=== PATIENT | female | born 1935 | race Caucasian/White ===

== ENCOUNTER 2018-09-13 14:05 | Inpatient (IN) | payer MEDICARE, BC ==
[2018-09-13] VITALS (16 sets, daily range): BP systolic 133–195; BP diastolic 54–108; BMI 19.5
[~2018-09-13] VITALS: Ht 154.9 cm; Wt 50.9 kg
--- NOTE | ~2018-09-13 | MORECARE ---
CASE MANAGEMENT DISCHARGE SUMMARY PATIENT: RADHA GIBSON UNIT: [id number] ADM DATE: 09/13/18 AGE: 83 : 36 SEX: F ROOM/BED: D.2104 AUTHOR: SOPHIA,DOC PHYSICIAN: REFERRING PHYSICIAN: HIEU PITTS MD DATE OF SERVICE: 09/26/18 Discharge Plan Patient Name: RADHA GIBSON Facility: [facility]:[place] : 1935 Planned Disposition: Home Health Service Anticipated Discharge Date: 09/25/18 Discharge Date: 09/25/2018 Expected LOS: 12 Initial Reviewer: [email or web address] Initial Review Date: 09/13/2018 Generated: 09/26/18 9:33 am Comments DCP- Discharge Planning Updated by [email or web address]: Smita William on 09/25/18 5:[address] LATE ENTRY 1300 CM MET WITH THE PATIENT AND HER , MARISSA, AT THE BEDSIDE.. SHE GAVE PERMISSION FOR CM TO SPEAK WITH MARISSA PRESENT. CM REVIEWED DISCHARGE IMM. PATIENT UNDERSTOOD. SHE AND HER REVIEWED THE IMM FORM. CM ANSWERED THEIR QUESTIONS. THEY ARE ANXIOUS FOR DISCHARGE. CM DISCUSSED HOME HEALTH PROVIDERS. THE PATIENT AND HER CHOSE [facility], DISCHARGE IMM SIGNED BY THE PATIENT. PATIENT CHOICE FORM SIGNED BY THE PATIENT. CM HAD RESPIRTAORY TO OBTAIN O2 SATS RESTING ON RM AIR 90%, O2 SAT WITH EXERCISE ON RM AIR IS 87%. PATIENT PLACED BACK ON OXYGEN 2/L VIA NASAL CANNULA. SHE RECOVERED TO 94%. CM DISCUSSED OXYGEN THERAPY FOR HOME. PATIENT WAS AWARE SHE WOULD NEED HOME O2. DISCUSSED PROVIDERS. THEY CHOSE [facility] THEY ARE CLOSE TO THE PATIENT'S RESIDENCE. TC TO [facility] [phone]. REC CB. PORTABLE UNIT DELIVERED TO THE PATIENT'S BEDSIDE. STATIONARY UNIT TO BE DELIVERED TO PATIENT'S HOME WHEN THEY ARRIVE. TC TO [facility]. CM SPOKE WITH NOA. WILL FAX REFERRAL FOR SN AND PHYSICAL THERAPY. PATIENT DISCHARGE TO HOME VIA AMBULANCE PER MD ORDER. SHE HAS MULTIPLE STAIRS TO NEGOTIATE. O2 SATS DROP WITH ACTIVITY. S/P 3 PTCA AND STENTS TO 3 VESSELS. S/P CHEST PIGTAIL DRAINAGE TUBE FOR PTX. SHE ALSO HAS OSTEOARTHRITIS. DCP- Discharge Planning Updated by [email or web address]: Smita William on 09/24/18 2:[address] PATIENT IS ON NASAL O2 AT 3/4 LITERS. WAS NOT ON OXYGEN PRIOR TO ADMISSION. CTA OF CHEST- IMPRESSION: 1. No evidence of pulmonary emboli. 2. Moderate bilateral pleural effusions with adjacent atelectasis or infiltrate. 3. Mildly prominent precarinal lymph node, nonspecific. 4. Aortic and coronary artery atherosclerosis. 5. 7 cm left renal cyst, incompletely visualized. IV SOLUMEDROL AND LEVAQUIN ADDED. INCREASE ACTIVITY AND PULMONARY TOILETRY. MONITOR. CM SPOKE WITH PRIMARY NURSE. WILL REGARDING POSSIBLE NEED FOR HOME O2. DCP- Discharge Planning Updated by [email or web address]: Swetha Gamble on 09/13/18 5:[address] CM met with patient and spouse, Marissa, @bedside in ER to discuss dc needs/plans. Patient is alert/oriented, gives permission to speak with spouse in room. PCP: Dr. Pitts. Pharmacy: [facility]. Emergency contact: Marissa Gibson (spouse) cell #[phone] or #[phone]. Patient states she is Independent in her care at home. Denies having HHS or DME. States at this time, she does not feel she will require additional services and reports she feels safe returning to her previous environment. Patient denies being hospitalized within the past 30 days. Patient is on O2 during this stay and may require a RA SAT to determine need for home O2 upon discharge. CM will follow and assist PRN. Swetha Gamble RN, CM DCPIA - Discharge Planning Initial Assessment Updated by [email or web address]: Swetha Gamble on 09/13/18 6:12 pm * Is the patient Alert and Oriented? Yes * How many steps to enter\exit or inside your home? * PCP Dr. Pitts * Pharmacy [facility] * Preadmission Environment Home with Family * ADLs Independent * Equipment None * Other Equipment NA * List name and contact numbers for known caregivers / representatives who currently or will assist patient after discharge: Marissa Gibson (spouse) cell [phone] or [phone] * Verbal permission to speak to the caregivers and representatives has been obtained from the patient. Yes * Community resources currently utilized None * Please name any agencies selected above. NA * Additional services required to return to the preadmission environment? No * Can the patient safely return to the preadmission environment? Yes * Has this patient been hospitalized within the prior 30 days at any hospital? No Coverage Notice Reviewer: [id number] Janna William Notice Issued Date-Time: 09/25/2018 11:38 Notice Type: IM Discharge Notice Notice Delivered To: Patient Relationship to Patient: Offline Editor Name: Delivery Method: HAND - Hand Delivered Nataliia Days: Prior Verbal Notification: Recipient Understood Notice: Yes Recipient Signature: Yes Med Rec Note Co-signed by Attending: Coverage Notice Comment: PATIENT REVIEWED AND STATED SHE UNDERSTOOD. COPY TO THE PATIENT AND COPY TO HARD COVER CHART. Last DP export: 09/25/18 5:44 Patient Name: RADHA GIBSON Page 52757 at 0833 All edits/amendments must be made on the electronic document DICTATION DATE: 09/26/18831 GLASS BULB SILVERER: CHRISTEL 09/26/18831 RPT#: [id number] DC DATE:09/25/18 STATUS: DIS IN [facility] [address] [place] [address] END OF REPORT
--- NOTE | ~2018-09-13 | MORECARE ---
CASE MANAGEMENT DISCHARGE SUMMARY PATIENT: RADHA GIBSON UNIT: [id number] ADM DATE: 09/13/18 AGE: 83 : 36 SEX: F ROOM/BED: D.2106 AUTHOR: SOPHIA,DOC PHYSICIAN: REFERRING PHYSICIAN: HIEU PITTS MD DATE OF SERVICE: 09/25/18 Discharge Plan Patient Name: RADHA GIBSON Facility: [facility]:[place] : 1935 Planned Disposition: Home Health Service Anticipated Discharge Date: 09/25/18 Discharge Date: 09/25/2018 Expected LOS: 12 Initial Reviewer: [email or web address] Initial Review Date: 09/13/2018 Generated: 09/25/18 7:44 pm Comments DCP- Discharge Planning Updated by [email or web address]: Smita William on 09/25/18 5:[address] LATE ENTRY 1300 CM MET WITH THE PATIENT AND HER , MARISSA, AT THE BEDSIDE.. SHE GAVE PERMISSION FOR CM TO SPEAK WITH MARISSA PRESENT. CM REVIEWED DISCHARGE IMM. PATIENT UNDERSTOOD. SHE AND HER REVIEWED THE IMM FORM. CM ANSWERED THEIR QUESTIONS. THEY ARE ANXIOUS FOR DISCHARGE. CM DISCUSSED HOME HEALTH PROVIDERS. THE PATIENT AND HER CHOSE [facility], DISCHARGE IMM SIGNED BY THE PATIENT. PATIENT CHOICE FORM SIGNED BY THE PATIENT. CM HAD RESPIRTAORY TO OBTAIN O2 SATS RESTING ON RM AIR 90%, O2 SAT WITH EXERCISE ON RM AIR IS 87%. PATIENT PLACED BACK ON OXYGEN 2/L VIA NASAL CANNULA. SHE RECOVERED TO 94%. CM DISCUSSED OXYGEN THERAPY FOR HOME. PATIENT WAS AWARE SHE WOULD NEED HOME O2. DISCUSSED PROVIDERS. THEY CHOSE [facility] THEY ARE CLOSE TO THE PATIENT'S RESIDENCE. TC TO [facility] [phone]. REC CB. PORTABLE UNIT DELIVERED TO THE PATIENT'S BEDSIDE. STATIONARY UNIT TO BE DELIVERED TO PATIENT'S HOME WHEN THEY ARRIVE. TC TO [facility]. CM SPOKE WITH NOA. WILL FAX REFERRAL FOR SN AND PHYSICAL THERAPY. PATIENT DISCHARGE TO HOME VIA AMBULANCE PER MD ORDER. SHE HAS MULTIPLE STAIRS TO NEGOTIATE. O2 SATS DROP WITH ACTIVITY. S/P 3 PTCA AND STENTS TO 3 VESSELS. S/P CHEST PIGTAIL DRAINAGE TUBE FOR PTX. SHE ALSO HAS OSTEOARTHRITIS. DCP- Discharge Planning Updated by [email or web address]: Smita William on 09/24/18 2:[address] PATIENT IS ON NASAL O2 AT 3/4 LITERS. WAS NOT ON OXYGEN PRIOR TO ADMISSION. CTA OF CHEST- IMPRESSION: 1. No evidence of pulmonary emboli. 2. Moderate bilateral pleural effusions with adjacent atelectasis or infiltrate. 3. Mildly prominent precarinal lymph node, nonspecific. 4. Aortic and coronary artery atherosclerosis. 5. 7 cm left renal cyst, incompletely visualized. IV SOLUMEDROL AND LEVAQUIN ADDED. INCREASE ACTIVITY AND PULMONARY TOILETRY. MONITOR. CM SPOKE WITH PRIMARY NURSE. WILL REGARDING POSSIBLE NEED FOR HOME O2. DCP- Discharge Planning Updated by [id number]: Swetha Gamble on 09/13/18 5:[address] CM met with patient and spouse, Marissa, @bedside in ER to discuss dc needs/plans. Patient is alert/oriented, gives permission to speak with spouse in room. PCP: Dr. Pitts. Pharmacy: [facility]. Emergency contact: Marissa Gibson (spouse) cell #[phone] or #[phone]. Patient states she is Independent in her care at home. Denies having HHS or DME. States at this time, she does not feel she will require additional services and reports she feels safe returning to her previous environment. Patient denies being hospitalized within the past 30 days. Patient is on O2 during this stay and may require a RA SAT to determine need for home O2 upon discharge. CM will follow and assist PRN. Swetha Gamble RN, CM DCPIA - Discharge Planning Initial Assessment Updated by [email or web address]: Swetha Gamble on 09/13/18 6:12 pm * Is the patient Alert and Oriented? Yes * How many steps to enter\exit or inside your home? * PCP Dr. Pitts * Pharmacy [facility] * Preadmission Environment Home with Family * ADLs Independent * Equipment None * Other Equipment NA * List name and contact numbers for known caregivers / representatives who currently or will assist patient after discharge: Marissa Gibson (spouse) cell [phone] or [phone] * Verbal permission to speak to the caregivers and representatives has been obtained from the patient. Yes * Community resources currently utilized None * Please name any agencies selected above. NA * Additional services required to return to the preadmission environment? No * Can the patient safely return to the preadmission environment? Yes * Has this patient been hospitalized within the prior 30 days at any hospital? No Coverage Notice Reviewer: [email or web address] Janna William Notice Issued Date-Time: 09/25/2018 11:38 Notice Type: IM Discharge Notice Notice Delivered To: Patient Relationship to Patient: Day Care Supervisor Name: Delivery Method: HAND - Hand Delivered Nataliia Days: Prior Verbal Notification: Recipient Understood Notice: Yes Recipient Signature: Yes Med Rec Note Co-signed by Attending: Coverage Notice Comment: PATIENT REVIEWED AND STATED SHE UNDERSTOOD. COPY TO THE PATIENT AND COPY TO HARD COVER CHART. Last DP export: 09/25/18 5:31 Patient Name: RADHA GIBSON Page [phone] at 1844 All edits/amendments must be made on the electronic document DICTATION DATE: 09/25/181842 COMPUTER NUMERICAL CONTROL OPERATOR: CHRISTEL 09/25/181842 RPT#: [id number] DC DATE:09/25/18 STATUS: DIS IN [facility] [address] [place] [address] END OF REPORT
--- NOTE | ~2018-09-13 | MORECARE ---
CASE MANAGEMENT DISCHARGE SUMMARY PATIENT: RADHA GIBSON UNIT: [id number] ADM DATE: 09/13/18 AGE: 83 : 36 SEX: F ROOM/BED: D.2309 AUTHOR: SOPHIA,DOC PHYSICIAN: REFERRING PHYSICIAN: HIEU PITTS MD DATE OF SERVICE: 09/19/18 Discharge Plan Patient Name: RADHA GIBSON Facility: [facility]:[place] : 1935 Planned Disposition: Anticipated Discharge Date: Discharge Date: Expected LOS: Initial Reviewer: [email or web address] Initial Review Date: 09/13/2018 Generated: 09/19/18 6:58 pm DCP- Discharge Planning Updated by [email or web address]: Swetha Gamble on 09/13/18 5:[address] CM met with patient and spouse, Saurabh, @bedside in ER to discuss dc needs/plans. Patient is alert/oriented, gives permission to speak with spouse in room. PCP: Dr. Pitts. Pharmacy: [facility]. Emergency contact: Saurabh Gibson (spouse) cell #[phone] or #[phone]. Patient states she is Independent in her care at home. Denies having HHS or DME. States at this time, she does not feel she will require additional services and reports she feels safe returning to her previous environment. Patient denies being hospitalized within the past 30 days. Patient is on O2 during this stay and may require a RA SAT to determine need for home O2 upon discharge. CM will follow and assist PRN. Swetha Gamble RN, CM DCPIA - Discharge Planning Initial Assessment Updated by [email or web address]: Swetha Gamble on 09/13/18 6:12 pm * Is the patient Alert and Oriented? Yes * How many steps to enter\exit or inside your home? * PCP Dr. Pitts * Pharmacy [facility] * Preadmission Environment Home with Family * ADLs Independent * Equipment None * Other Equipment NA * List name and contact numbers for known caregivers / representatives who currently or will assist patient after discharge: Saurabh Gibson (spouse) cell [phone] or [phone] * Verbal permission to speak to the caregivers and representatives has been obtained from the patient. Yes * Community resources currently utilized None * Please name any agencies selected above. NA * Additional services required to return to the preadmission environment? No * Can the patient safely return to the preadmission environment? Yes * Has this patient been hospitalized within the prior 30 days at any hospital? No Last DP export: 09/13/18 5:17 Patient Name: RADHA GIBSON Page [id number] at 1758 All edits/amendments must be made on the electronic document DICTATION DATE: 09/19/181756 RFID MANAGER: CHRISTEL 09/19/181756 RPT#: [id number] DC DATE: STATUS: ADM IN [facility] [address] [place] [address] END OF REPORT
--- NOTE | ~2018-09-13 | MORECARE ---
CASE MANAGEMENT DISCHARGE SUMMARY PATIENT: RADHA GIBSON UNIT: [id number] ADM DATE: 09/13/18 AGE: 83 : 36 SEX: F ROOM/BED: D.2100 AUTHOR: SOPHIA,DOC PHYSICIAN: REFERRING PHYSICIAN: HIEU PITTS MD DATE OF SERVICE: 09/25/18 Discharge Plan Patient Name: RADHA GIBSON Facility: [facility]:[place] : 1935 Planned Disposition: Home Health Service Anticipated Discharge Date: 09/25/18 Discharge Date: 09/25/2018 Expected LOS: 12 Initial Reviewer: [email or web address] Initial Review Date: 09/13/2018 Generated: 09/25/18 7:31 pm Comments DCP- Discharge Planning Updated by [email or web address]: Smita William on 09/24/18 2:[address] PATIENT IS ON NASAL O2 AT 3/4 LITERS. WAS NOT ON OXYGEN PRIOR TO ADMISSION. CTA OF CHEST- IMPRESSION: 1. No evidence of pulmonary emboli. 2. Moderate bilateral pleural effusions with adjacent atelectasis or infiltrate. 3. Mildly prominent precarinal lymph node, nonspecific. 4. Aortic and coronary artery atherosclerosis. 5. 7 cm left renal cyst, incompletely visualized. IV SOLUMEDROL AND LEVAQUIN ADDED. INCREASE ACTIVITY AND PULMONARY TOILETRY. MONITOR. CM SPOKE WITH PRIMARY NURSE. WILL REGARDING POSSIBLE NEED FOR HOME O2. DCP- Discharge Planning Updated by [email or web address]: Swetha Gamble on 09/13/18 5:[address] CM met with patient and spouse, Saurabh, @bedside in ER to discuss dc needs/plans. Patient is alert/oriented, gives permission to speak with spouse in room. PCP: Dr. Pitts. Pharmacy: [facility]. Emergency contact: Saurabh Gibson (spouse) cell #[phone] or #[phone]. Patient states she is Independent in her care at home. Denies having HHS or DME. States at this time, she does not feel she will require additional services and reports she feels safe returning to her previous environment. Patient denies being hospitalized within the past 30 days. Patient is on O2 during this stay and may require a RA SAT to determine need for home O2 upon discharge. CM will follow and assist PRN. Swetha Gamble RN, CM DCPIA - Discharge Planning Initial Assessment Updated by [email or web address]: Swetha Gamble on 09/13/18 6:12 pm * Is the patient Alert and Oriented? Yes * How many steps to enter\exit or inside your home? * PCP Dr. Pitts * Pharmacy [facility] * Preadmission Environment Home with Family * ADLs Independent * Equipment None * Other Equipment NA * List name and contact numbers for known caregivers / representatives who currently or will assist patient after discharge: Saurabh Gibson (spouse) cell [phone] or [phone] * Verbal permission to speak to the caregivers and representatives has been obtained from the patient. Yes * Community resources currently utilized None * Please name any agencies selected above. NA * Additional services required to return to the preadmission environment? No * Can the patient safely return to the preadmission environment? Yes * Has this patient been hospitalized within the prior 30 days at any hospital? No Last DP export: 09/25/18 5:19 Patient Name: RADHA GIBSON Page 19613 at 1831 All edits/amendments must be made on the electronic document DICTATION DATE: 09/25/181830 SAP SECURITY CONSULTANT: CHRISTEL 09/25/181830 RPT#: [id number] DC DATE:09/25/18 STATUS: DIS IN [facility] [address] [place] [address] END OF REPORT
--- NOTE | ~2018-09-13 | HEMODYNAMI ---
PATIENT:RADHA ERICKSON MEDICAL RECORD: [id number] : 37 LOCATION:[facility] D.2309 ADMISSION DATE: 09/13/18 Generatedon:09/15/201812:49 Patient name: RADHA ERICKSON Patient #: [id number] SSN: : 1935 Date of study: 09/15/2018 Page: Of Hemodynamic Procedure Report Patient Data Patient Demographics Procedure consent was obtained First Name: RADHA Gender: Female Last Name: DRE : 1935 [facility] Initial: KATARINA Age: 83 year(s) Patient #: [id number] Race: Additional ID: [id number] Contact details Address: [address] [place] [address] State: [place] City: [place] Zip code: [address] Past Medical History Allergies: No known allergies Admission Admission Data Admission Date: 09/13/2018 Admission Time: 17:03 Room #: D.2309 Procedure Procedure Types Cath Procedure Diagnostic Procedure Sedation Charges Moderate Sedation up to 15 minutes PCI Procedure Coronary Stent Coronary Stent Initial Peripheral Cath Diagnostic Procedure Derrick Boat Operator Peripheral Procedures Hjqdb-Vlbsnvo-Jwu-Off Procedure Description Procedure Date Procedure Date: 09/15/2018 Procedure Start Time: 12:24 Procedure End Time: 12:45 Procedure Staff Name Function King Parker MD Performing Physician Indy Lockett RT Monitor Yeni Lopez RT Scrub Estrellita Raygoza RN Nurse Procedure Data Cath Procedure Fluoroscopy Diagnostic fluoroscopy Total fluoroscopy Time: 6.4 time: 6.4 min min Diagnostic fluoroscopy Total fluoroscopy dose: 421 dose: 421 mGy mGy Contrast Material Contrast Material Type Amount (ml) Isovue 300 135 Entry Location Entry Primary Successful Side Size Upsize Upsize Entry Closure Succes sful Closure Location (Fr) 1 (Fr) 2 (Fr) Remarks Device Remarks Femoral Right 6 Fr Exoseal artery Short Estimated blood loss: 5 ml Diagnostic catheters Device Type Used For End Catheter Placement DIAGNOSTIC UF 5Fr Multi-vessel catheter ([id number]) Angiography Procedure Complications No complications Procedure Medications Medication Administration Route Dosage Oxygen etCO2 Nasal cannula 2 l/min Lidocaine 2% added to field 20 Heparin Flush Bag added to field 2 bags (1000units/500ml NS) 0.9% NaCl I.V. 100 ml/hr Versed I.V. 1 mg Fentanyl I.V. 50 mcg Heparin Bolus I.V. 4000 units Hemodynamics Rest Heart Rate: 72 (bpm) Snapshots Pre Cath Intra NCS Post Cath Vital Signs Time Heart Resp SPO2 etCO2 NIBP (mmHg) Rhythm Pain Sedation Rate (ipm) (%) (mmHg) Status Level (bpm) 12:18:42 76 22 89 22.6 203/76(140) NSR 0 (11) 10(A) , No pain 12:23:12 73 18 92 10.5 182/74(120) NSR 0 (11) 10(A) , No pain 12:27:43 69 15 98 13.5 186/67(123) NSR 0 (11) 9(A) , No pain 12:32:15 71 17 98 15.1 174/61(120) NSR 0 (11) 9(A) , No pain 12:36:39 71 15 99 0 193/71(141) NSR 0 (11) 9(A) , No pain 12:41:10 76 16 98 9.8 194/76(126) NSR 0 (11) 9(A) , No pain 12:45:40 70 15 98 24.8 187/72(136) NSR 0 (11) 10(A) , No pain Medications Time Medication Route Dose Verified Delivered Reason Notes Effectiveness by by 12:19:29 Oxygen etCO2 2 King Haro used for Nasal l/min Elena Raygoza RN procedure cannula 12:19:35 Lidocaine 2% added 20ml King Malik for local to vial Elena Parker MD anesthetic field 12:19:40 Heparin Flush added 2 King King used for Bag to bags Elena Parker MD procedure (1000units/500ml field NS) 12:19:49 0.9% NaCl I.V. 100 King Buffie Per physician ml/hr Elena Raygoza RN 12:20:03 Versed I.V. 1 mg King Haro for sedation Elena Raygoza RN 12:20:10 Fentanyl I.V. 50 King Buffie for sedation mcg Tauth MD Raygoza RN 12:28:58 Heparin Bolus I.V. Dacia Haro for verif ied units Elena Raygoza RN anticoagulation with dr parker Procedure Log Time Note 11:56:23 Informed consent obtained and on chart 11:57:54 Yeni Lopez RT(R) sent for patient. Start room use. 11:57:54 Time tracking: Regular hours (M-F 7:00 - 5:00) 11:57:59 Plan of Care:Hemodynamics will remain stable., Cardiac rhythm will remain stable., Comfort level will be maintained., Respiratory function will remain adequate., Patient/ family verbilizes understanding of procedure., Procedure tolerated without complication., Recovers from procedure without complications.. 12:16:11 Patient received from ICU to CCL 2 Alert and oriented. Tansferred to table in Supine position. 12:16:12 Warm blankets applied, and william hugger turned on for patient comfort. 12:16:13 Correct patient and procedure confirmed by team. 12:16:13 ECG and BP/O2 sat monitors applied to patient. 12:16:14 Vital chart was started 12:16:16 Baseline sample Acquired. 12:16:18 Rhythm: sinus rhythm 12:16:20 Full Disclosure recording started 12:16:23 H&P Date Dictated: 09/15/2018 Within 30 days and on chart., H&P Addendum completed by physician on day of procedure. (MUST COMPLETE FOR ALL OUTPATIENTS). 12:16:24 Pre-procedure instructions explained to patient. 12:16:25 Pre-op teaching completed and patient verbalized understanding. 12:16:26 Family in waiting room. 12:16:28 Patient NPO since Midnight. 12:16:30 Is the patient allergic to Iodine/contrast media? No. 12:16:31 Was the patient premedicated? No 12:17:29 Is patient on blood thinner?Yes 12:17:31 ACC The patient was administered the following blood thiners within the last 24 hours: ACCPlavix 12:17:40 Patient diabetic? No. 12:17:42 Previous problem with sedation/anesthesia? No ? 12:17:46 Snore? Yes 12:17:47 Sleep apnea? No 12:18:07 Deviated septum? No 12:18:07 Opens mouth fully? Yes 12:18:08 Sticks out tongue? Yes 12:18:13 Airway obstruction? No ? 12:18:20 Dentures? Yes in tight 12:18:24 Pre procedure: right dorsailis pedis pulse 1+ Palpable, but thready & weak; easily obliterated 12:18:32 Pre procedure: left dorsailis pedis pulse 1+ Palpable, but thready & weak; easily obliterated 12:18:36 Patient pain scale 0/10 ?. 12:18:42 IV patent on arrival in right forearm with 0.9% NaCl at [facility]. 12:18:45 Lab results completed and on chart. 12:18:49 Right groin area was prepped with chlora-prep and draped in sterile fashion 12:18:49 Alarms reviewed by R. N. 12:18:50 Sharps counted by scrub and verified by R.N. 12:18:51 Physician arrived 12:18:51 --------ALL STOP TIME OUT------ 12:18:52 Final Timeout: patient, procedure, and site verified with staff and physician. All members of the team are in agreement. 12:18:53 Right groin site verified by team. 12:18:55 Physical assessment completed. ASA score P 2 - A patient with mild systemic disease as per King Parker MD. 12:18:59 Sedation plan: IV Moderate Sedation Medication:Versed, Fentanyl 12:19:12 Use device set Femoral Dx 12:19:14 ACIST Syringe (56047) opened to sterile field. 12:19:14 Bag Decanter (2001S) opened to sterile field. 12:19:15 Medline Cath Pack ([id number]) opened to sterile field. 12:19:15 DIAGNOSTIC WIRE .035 260cm J wire (735445) opened to sterile field. 12:19:16 ACIST Hand Control (17798) opened to sterile field. 12:19:17 ACIST Manifold (04875) opened to sterile field. 12:19:19 Tegaderm 4 x 4 (1626W) opened to sterile field. 12:19:29 Oxygen 2 l/min etCO2 Nasal cannula was administered by Estrellita Raygoza RN; used for procedure; 12:19:35 Lidocaine 2% 20ml vial added to field was administered by King Parker MD; for local anesthetic; 12:19:40 Heparin Flush Bag (1000units/500ml NS) 2 bags added to field was administered by King Parker MD; used for procedure; 12::49 0.9% NaCl 100 ml/hr I.V. was administered by Estrellita Raygoza RN; Per physician; 12:20:03 Versed 1 mg I.V. was administered by Estrellita Raygoza RN; for sedation; 12:20:10 Fentanyl 50 mcg I.V. was administered by Estrellita Raygoza RN; for sedation; 12::27 SHEATH 6FR Lydia (RDA498) opened to sterile field. 12::28 INFLATOR Merit BasixCompak (JU4139) opened to sterile field. 12::29 CHOICE PT Extra Support 182cm wire ([id number]) opened to sterile field. 12:24:36 Procedure started. 12:24:44 Local anesthetic to right femoral artery with Lidocaine 2% by King Parker MD.INITIAL ACCESS ONLY 12:24:52 A 6 Fr Short sheath was inserted into the Right Femoral artery 12:25:48 GLIDE WIRE Super Stiff Angled 260cm (XW1134) opened to sterile field. 12:25:55 GUIDE 6FR HS I SH catheter ([id number]) opened to sterile field. 12:26:08 glide wire advanced. 12:26:14 A DIAGNOSTIC UF 5Fr catheter ([id number]) was advanced over the wire and used for Multi-vessel Angiography. 12:27:14 Abdominal angiogram w/ runoff was performed. 12::19 Injector settings: Ml/sec: 10, Volume: 20, 12:28:24 Wire removed. 12:28:33 Catheter removed. 12:28:34 Proceeding to intervention. 12:28:43 6 Fr hs 1 sh guide catheter was inserted over the wire 12:28:52 choice pt wire advanced. 12:28:58 Heparin Bolus 4000 units I.V. was administered by Estrellita Raygoza RN; for anticoagulation; verified with dr parker 12:31:51 Wire advanced across lesion. 12:33:10 The TANIYA RX 2.5 x 18 stent ([id number]) was advanced then removed because of failure to cross lesion 12:34:44 Inflate balloon Inflation number: 1 A EUPHORA 2.5 x 15 Balloon ([id number]) was prepped and advanced across the Mid RCA, then inflated to 11 IKE for 0:10 (min:sec). 12:34:55 Balloon removed over the wire. 12:36:24 The TANIYA RX 2.5 x 18 stent ([id number]) was advanced then removed because of failure to cross lesion 12:37:15 Inflation number: 2 The EUPHORA 2.5 x 15 Balloon ([id number]) was reinflated across the Mid RCA, to 13 IKE for 0:10 (min:sec). 12:37:22 Inflation number: 3 The EUPHORA 2.5 x 15 Balloon ([id number]) was reinflated across the Mid RCA, to 13 IKE for 0:10 (min:sec). 12:37:36 Balloon removed over the wire. 12:38:32 Inflation number: 4 The EUPHORA 2.5 x 15 Balloon ([id number]) was reinflated across the Mid RCA, to 11 IKE for 0:10 (min:sec). 12:38:45 Stent catheter was removed intact over wire. 12:40:09 Place stent Inflation Number: 1 A TANIYA RX 2.5 x 22 stent ([id number]) was prepped and advanced across the Prox RCA. The stent was deployed at 11 IKE for 0:10 (min:sec). 12:41:20 Stent catheter was removed intact over wire. 12:41:22 Wire removed. 12:41:22 Guide catheter removed. 12:41:30 Sheath removed intact; hemostasis achieved with Exoseal to the Right Femoral artery. 12:41:39 EXOSEAL 6Fr (EX600) opened to sterile field. 12:43:10 Procedure ended.(Physican Out) 12:43:41 Fluoroscopy time 06.40 minutes. 12:43:44 Flurop Dose total: 421 12:43:44 Fluoroscopy dose: 421 mGy 12:43:48 Contrast amount:Isovue 300 135ml. 12:43:49 Sharps counted by scrub and verified by R.N. 12:43:52 Insertion/operative site no bleeding no hematoma. 12:43:54 Post-op/insertion site Right Femoral artery dressed using a 4 x 4 and Tegaderm. 12:43:57 Post right femoral artery:stable 12:43:58 Post Procedure Pulses reassessed and unchanged 12:44:01 Post procedure rhythm: unchanged. 12:44:03 Estimated blood loss: 5 ml 12:44:05 Post procedure instruction explained to patient.Patient verbalizes understanding. 12:44:05 Patient needs reinforcement of post procedure teaching. 12:44:57 Procedure type changed to Cath procedure, Diagnostic procedure, Sedation Charges, Moderate Sedation up to 15 minutes, PCI procedure, Coronary Stent, Coronary Stent Initial, Peripheral Cath Diagnostic Procedure, Derrick Boat Operator Peripheral Procedures, Rnrxs-Ifadtlc-Lpy-Off 12:44:57 Procedure and supply charges have been captured, reviewed, submitted and are correct. 12:45:02 Procedure Complication : No complications 12:45:04 Vital chart was stopped 12:45:05 See physician's report for complete and final results. 12:45:27 Report given to ICU. 12:45:30 Patient transfered to ICU with Stretcher. 12:45:35 Procedure ended. 12:45:35 Full Disclosure recording stopped 12:45:40 ACC-PCI Only Patient was given prescriptions, or instructed by King Parker MD to start/continue the following medications upon discharge: Plavix 12:45:42 End room use (Document Last) Intervention Summary Intervention Notes Time ActionType Lesion and Equipment Used Action# Pressure Duration Attributes 12:33:10 Discard TANIYA RX 2.5 x Stent 18 stent ([id number]) 12:34:44 Inflate Mid RCA EUPHORA 2.5 x 1 11 00:10 balloon 15 Balloon ([id number]) 12:36:24 Discard TANIYA RX 2.5 x Stent 18 stent ([id number]) 12:37:15 Reinflate Mid RCA EUPHORA 2.5 x 2 13 00:10 balloon 15 Balloon ([id number]) 12:37:22 Reinflate Mid RCA EUPHORA 2.5 x 3 13 00:10 balloon 15 Balloon ([id number]) 12:38:32 Reinflate Mid RCA EUPHORA 2.5 x 4 11 00:10 balloon 15 Balloon ([id number]) 12:40:09 [address] stent Prox RCA TANIYA RX 2.5 x 1 11 00:10 22 stent ([id number]) Device Usage Item Name Manufacture Quantity Catalog Number Hospital Part Current M inimal Lot# / Charge Number Stock Stock Serial# Code ACIST Syringe Acist 1 08997 659658 831940 074251 2 0 (52793) Medical Systems Inc Bag Decanter Microtek 1 402414 48239 441091 5 () Medical Inc. Medline Cath Medline 1 [id number] 120010 40064 612359 5 Pack ([id number]) DIAGNOSTIC St Tom 1 259725 030507 192340 062278 3 0 WIRE .035 260cm J wire (397928) ACIST Hand Acist 1 09885 010152 851646 375248 5 Control Medical (94374) Systems Inc ACIST Manifold Acist 1 30066 716028 447094 085491 5 (41660) Medical Systems Inc Tegaderm 4 x 4 3M 1 1626W 882298 193167 196706 5 (1626W) SHEATH 6FR Terumo 1 LSB924 214945 641819 446365 4 0 Lydia (WLJ434) INFLATOR Merit Merit 1 JK4913 353680 326622 037547 1 5 Extreme Enterprises (ZY8081) CHOICE PT Dilley 1 [id number] 169559 984587 883448 5 Extra Support Scientific 182cm wire ([id number]) DIAGNOSTIC UF Cardinal 1 [id number] 383100 241714 893643 1 0 5Fr catheter [facility] (191460H2) GLIDE WIRE Terumo 1 MW7619 052818 050912 650026 5 Super Stiff Angled 260cm (FF9304) GUIDE 6FR HS I Medtronic 1 [id number] 925464 43559 831671 1 SH catheter ([id number]) TANIYA RX 2.5 x Medtronic 1 [id number] 215532 5191308 869939 5 [id number] 18 stent ([id number]) EUPHORA 2.5 x Medtronic 1 [id number] 200748 388122 658859 5 [id number] 15 Balloon ([id number]) TANIYA RX 2.5 x Medtronic 1 [id number] 537397 2696577 724402 5 [id number] 22 stent ([id number]) EXOSEAL 6Fr Cardinal 1 EX600 877916 001185 889120 1 0 (EX600) Health Signature Audit [place] Stage Time Signature Unsigned Intra-Procedure 09/15/2018 Indy Lockett 12:49:22 PM RT(R) Signatures Monitor : Indy Lockett RT Signature : Date : Time : [address] [address] [place] [address]
--- NOTE | ~2018-09-13 | MORECARE ---
CASE MANAGEMENT DISCHARGE SUMMARY PATIENT: RADHA GIBSON UNIT: [id number] ADM DATE: 09/13/18 AGE: 83 : 36 SEX: F ROOM/BED: D.210 AUTHOR: SOPHIA,DOC PHYSICIAN: REFERRING PHYSICIAN: HIEU PITTS MD DATE OF SERVICE: 09/25/18 Discharge Plan Patient Name: RADHA GIBSON Facility: [facility]:[place] : 1935 Planned Disposition: Home Health Service Anticipated Discharge Date: 09/25/18 Discharge Date: 09/25/2018 Expected LOS: 12 Initial Reviewer: [email or web address] Initial Review Date: 09/13/2018 Generated: 09/25/18 7:19 pm Comments DCP- Discharge Planning Updated by [email or web address]: Smita William on 09/24/18 2:[address] PATIENT IS ON NASAL O2 AT 3/4 LITERS. WAS NOT ON OXYGEN PRIOR TO ADMISSION. CTA OF CHEST- IMPRESSION: 1. No evidence of pulmonary emboli. 2. Moderate bilateral pleural effusions with adjacent atelectasis or infiltrate. 3. Mildly prominent precarinal lymph node, nonspecific. 4. Aortic and coronary artery atherosclerosis. 5. 7 cm left renal cyst, incompletely visualized. IV SOLUMEDROL AND LEVAQUIN ADDED. INCREASE ACTIVITY AND PULMONARY TOILETRY. MONITOR. CM SPOKE WITH PRIMARY NURSE. WILL REGARDING POSSIBLE NEED FOR HOME O2. DCP- Discharge Planning Updated by [email or web address]: Swetha Gamble on 09/13/18 5:[address] CM met with patient and spouse, Saurabh, @bedside in ER to discuss dc needs/plans. Patient is alert/oriented, gives permission to speak with spouse in room. PCP: Dr. Pitts. Pharmacy: [facility]. Emergency contact: Saurabh Gibson (spouse) cell #[phone] or #[phone]. Patient states she is Independent in her care at home. Denies having HHS or DME. States at this time, she does not feel she will require additional services and reports she feels safe returning to her previous environment. Patient denies being hospitalized within the past 30 days. Patient is on O2 during this stay and may require a RA SAT to determine need for home O2 upon discharge. CM will follow and assist PRN. Swetha Gamble RN, CM DCPIA - Discharge Planning Initial Assessment Updated by [email or web address]: Swetha Gamble on 09/13/18 6:12 pm * Is the patient Alert and Oriented? Yes * How many steps to enter\exit or inside your home? * PCP Dr. Pitts * Pharmacy [facility] * Preadmission Environment Home with Family * ADLs Independent * Equipment None * Other Equipment NA * List name and contact numbers for known caregivers / representatives who currently or will assist patient after discharge: Saurabh Gibson (spouse) cell [phone] or [phone] * Verbal permission to speak to the caregivers and representatives has been obtained from the patient. Yes * Community resources currently utilized None * Please name any agencies selected above. NA * Additional services required to return to the preadmission environment? No * Can the patient safely return to the preadmission environment? Yes * Has this patient been hospitalized within the prior 30 days at any hospital? No Last DP export: 09/24/18 2:59 Patient Name: RADHA GIBSON Page [id number] at 1819 All edits/amendments must be made on the electronic document DICTATION DATE: 09/25/181817 FAMILY PRACTICE PHYSICIAN ASSISTANT: CHRISTEL 09/25/181817 RPT#: [id number] [place] DATE:09/25/18 STATUS: DIS IN [facility] [address] [place] [address] END OF REPORT
--- NOTE | ~2018-09-13 | OP ---
PATIENT NAME: RADHA ERICKSON MEDICAL RECORD: [id number] :[birth year] LOCATION:[facility] D.2309 ADMISSION DATE:09/13/18 SURGEON: SHANNAN AGARWAL MD DATE OF OPERATION: 09/15/2018 DATE OF SERVICE: 09/15/2018 PROCEDURES: 1. PTCA stent RCA. 2. Selective coronary angiography. INDICATION: Angina and coronary artery disease. PROCEDURE IN DETAIL: After informed consent was obtained and after a detailed description of the risks, benefits as well as alternative therapies, the patient elected to proceed with angiogram and angioplasty. The right femoral area was prepped and draped in normal sterile fashion. Right femoral artery was cannulated via modified Seldinger technique with placement of 6-Salvadorean sheath. All catheters exchanged through this sheath. FINDINGS: The right coronary has a long area of 70% to 80% stenosis in the mid vessel. This was addressed with a 2.5 x 18 and 2.5 x 22, both Junior stents. Result was 0% residual stenosis. OVERALL IMPRESSION: Successful percutaneous transluminal coronary angioplasty stent of the right coronary artery going from 80% initial stenosis to 0% residual. TRANSINT:[id number] Voice Confirmation ID: [id number] DOCUMENT ID: [id number] SHANNAN AGARWAL MD at 1856 CC: [id number] DICTATION DATE: 09/15/18 1248 METALIZING SUPERVISOR: 09/15/18 1301 ADM IN [facility] [address] [place] [address]
--- NOTE | ~2018-09-13 | OP ---
PATIENT NAME: RADHA ERICKSON MEDICAL RECORD: [id number] :[birth year] LOCATION:D.[facility] D.2309 ADMISSION DATE:09/13/18 SURGEON: SHANNAN AGARWAL MD DATE OF OPERATION: 09/14/2018 PROCEDURES: 1. PTCA and stent, LAD. 2. PTCA and stent, left circumflex. 3. Intravascular ultrasound of LAD. 4. Intravascular ultrasound of left circumflex. 5. Left heart catheterization. 6. Selective coronary angiography. 7. Left ventriculogram. INDICATION: Angina and coronary disease. PROCEDURE IN DETAIL: After informed consent was obtained with detailed description of risks and benefits as well as alternative therapies, the patient elected to proceed with angiogram and angioplasty. The right femoral area was prepped and draped in normal sterile fashion. Right femoral artery was cannulated via modified Seldinger technique with placement of 6-Maori sheath. All catheters were exchanged through the sheath. FINDINGS: The left ventriculogram performed in standard 30-degree NICHOLS view reveals good cardiac wall motion throughout all segments. Overall ejection fraction estimated at 60%. SELECTIVE CORONARY ANGIOGRAPHY: 1. Left main is with no significant angiographic disease. 2. Left anterior descending has greater than 80% stenosis, confirmed by intravascular ultrasound in the proximal vessel. 3. Left circumflex has greater than 80% stenosis in the mid vessel, confirmed by intravascular ultrasound. 4. Right coronary has greater than 80% stenosis in the mid vessel. PTCA AND STENT OF LAD AND CIRCUMFLEX: The LAD was addressed with a 2.5 x 22-mm [place], the circumflex with a 2.5 x 8-mm Junior. Result was 0% residual stenoses. OVERALL IMPRESSION: Successful PTCA and stent of the LAD and circumflex, both going from 80% initial stenosis to 0% residual. PLAN: PTCA and stent of the RCA in the near future. TRANSINT:[id number] Voice Confirmation ID: [id number] DOCUMENT ID: [id number] SHANNAN AGARWAL MD at 1856 CC: [id number] DICTATION DATE: 09/14/18 1259 LOCAL TELEPHONE OPERATOR: 09/14/18 1316 ADM IN [place] [address] [place] [address]
--- NOTE | ~2018-09-13 | MORECARE ---
CASE MANAGEMENT DISCHARGE SUMMARY PATIENT: RADHA GIBSON KATARINA UNIT: [id number] ADM DATE: 09/13/18 AGE: 83 : 36 SEX: F ROOM/BED: D.2309 AUTHOR: VANESSA CORTES PHYSICIAN: REFERRING PHYSICIAN: HEIU PITTS MD DATE OF SERVICE: 09/13/18 Discharge Plan Patient Name: RADHA GIBSON [facility] [facility] 1935 Planned Disposition: Anticipated Discharge Date: Discharge Date: Expected LOS: Initial Reviewer: [email or web address] Initial Review Date: 09/13/2018 Generated: 09/13/18 7:10 pm DCP- Discharge Planning Updated by [email or web address]: Swetha Gamble on 09/13/18 5:[address] CM met with patient and spouse, Saurabh, @bedside in ER to discuss dc needs/plans. Patient is alert/oriented, gives permission to speak with spouse in room. PCP: Dr. Pitts. Pharmacy: [facility]. Emergency contact: Saurabh Gibson (spouse) cell #[phone] or #[phone]. Patient states she is Independent in her care at home. Denies having HHS or DME. States at this time, she does not feel she will require additional services and reports she feels safe returning to her previous environment. Patient denies being hospitalized within the past 30 days. Patient is on O2 during this stay and may require a RA SAT to determine need for home O2 upon discharge. CM will follow and assist PRN. Swetha Gamble RN, CM Patient Name: RADHA GIBSON Page [phone] at 1810 All edits/amendments must be made on the electronic document DICTATION DATE: 09/13/181809 TV TECHNICIAN: CHRISTEL 09/13/181809 RPT#: [id number] DC DATE: STATUS: ADM IN [facility] [address] [place] [address] END OF REPORT
--- NOTE | ~2018-09-13 | HEMODYNAMI ---
PATIENT:RADHA ERICKSON MEDICAL RECORD: [id number] : 37 LOCATION:[facility] D.2309 ADMISSION DATE: 09/13/18 Generatedon:09/14/201812:59 Patient name: RADHA ERICKSON Patient #: [id number] SSN: : 1935 Date of study: 09/14/2018 Page: Of Hemodynamic Procedure Report Patient Data Patient Demographics First Name: RADHA Gender: Female Last Name: DRE : 1935 Middle Initial: KATARINA Age: 83 year(s) Patient #: [id number] Race: Unknown Additional ID: [id number] Contact details Address: [address] [place] [address] State: [place] City: [place] Zip code: [address] Past Medical History Allergies: No known allergies Admission Admission Data Admission Date: 09/13/2018 Admission Time: 17:03 Room #: D2309 Procedure Procedure Types Cath Procedure Diagnostic Procedure LHC LHC w/Coronaries FFR/IVUS Intra-Coronary IVUS Initial Intra-Coronary IVUS Additional Sedation Charges Moderate Sedation up to 15 minutes PCI Procedure Coronary Stent Coronary Stent Initial x2 Peripheral Cath Diagnostic Procedure Artificial Glass Eye Maker Peripheral Procedures Zunqs-Bqnpliw-Dnb-Off Procedure Description Procedure Date Procedure Date: 09/14/2018 Procedure Start Time: 12:37 Procedure End Time: 12:59 Procedure Staff Name Function King Parker MD Performing Physician Thalia Gallardo RT Monitor Estrellita Raygoza RN Nurse Vern Garcia RT Scrub Lorena Catalan RN Field Installer Procedure Data Cath Procedure Fluoroscopy Diagnostic fluoroscopy Total fluoroscopy Time: 5 time: 5 min min Diagnostic fluoroscopy Total fluoroscopy dose: 167 dose: 167 mGy mGy Contrast Material Contrast Material Type Amount (ml) Isovue 300 130 Entry Location Entry Primary Successful Side Size Upsize Upsize Entry Closure Succes sful Closure Location (Fr) 1 (Fr) 2 (Fr) Remarks Device Remarks Femoral Right 5 Fr 6 Fr Exoseal artery Short Estimated blood loss: 10 ml Diagnostic catheters Device Type Used For End Catheter Placement MULTIPACK 3DRC 5Fr Right Coronary catheter Angiography MULTIPACK JL 4.0 5Fr Left Coronary catheter Angiography MULTIPACK Pigtail 5 Fr LV Angiography catheter Procedure Complications No complications Procedure Medications Medication Administration Route Dosage 0.9% NaCl I.V. 100 ml/hr Oxygen etCO2 Nasal cannula 2 l/min Lidocaine 2% added to field 20 Heparin Flush Bag added to field 2 bags (1000units/500ml NS) Versed I.V. 0.5 mg Fentanyl I.V. 25 mcg Heparin Bolus I.V. 4000 units Integrilin (Bolus I.V. 4.5 ml 2mg/ml) Plavix P.O. 600 mg Hemodynamics Rest Heart Rate: 65 (bpm) Snapshots Pre Cath Intra NCS Post Cath Vital Signs Time Heart Resp SPO2 etCO2 NIBP (mmHg) Rhythm Pain Sedation Rate (ipm) (%) (mmHg) Status Level (bpm) 12:31:09 63 17 98 28 189/68(116) NSR 0 (11) 10(A) , No pain 12:35:43 68 22 99 30 176/68(101) NSR 0 (11) 10(A) , No pain 12:40:14 64 15 98 32.3 165/57(107) NSR 0 (11) 10(A) , No pain 12:44:34 68 15 99 29.8 148/64(109) NSR 0 (11) 10(A) , No pain 12:48:56 71 15 99 31.1 167/65(114) NSR 0 (11) 10(A) , No pain 12:53:24 72 15 98 30 165/62(107) NSR 0 (11) 10(A) , No pain 12:57:53 71 14 98 0 183/70(137) NSR 0 (11) 10(A) , No pain Medications Time Medication Route Dose Verified Delivered Reason Notes Effectiveness by by 12:30:02 0.9% NaCl I.V. 100 King Lorena used for ml/hr Elena Catalan database administration manager 12:30:11 Oxygen etCO2 2 King Lorena used for Nasal l/min Elena Catalan procedure cannula RN 12:30:18 Lidocaine 2% added 20ml King Malik for local to vial Elena Parker MD anesthetic field 12:30:24 Heparin Flush added 2 King King used for Bag to bags Elena Parker MD procedure (1000units/500ml field NS) 12:35:24 Versed I.V. 0.5 King Carrillo for sedation mg Elena Catalan RN 12:35:32 Fentanyl I.V. 25 King Carrillo for sedation mcg Eelna Catalan RN 12:43:17 Heparin Bolus I.V. 4000 King Carrillo for verif ied units Elena Catalan anticoagulation with DrJenny Parker 12:44:35 Integrilin I.V. 4.5 King Carrillo for waste d (Bolus 2mg/ml) ml Elena Catalan anticoagulation 5.5mL RN 12:49:55 Plavix P.O. 600 King Carrillo for mg Elena Catalan antiplatelet RN therapy Procedure Log Time Note 11:58:35 Time tracking: Regular hours (M-F 7:00 - 5:00) 11:58:38 Plan of Care:Hemodynamics will remain stable., Cardiac rhythm will remain stable., Comfort level will be maintained., Respiratory function will remain adequate., Patient/ family verbilizes understanding of procedure., Procedure tolerated without complication., Recovers from procedure without complications.. 12:10:15 Thalia Counts RT(R) sent for patient. Start room use. 12:18:35 Patient received from ICU to CCL 3 Alert and oriented. Tansferred to table in Supine position. 12:18:38 Warm blankets applied, and william hugger turned on for patient comfort. 12:18:38 Correct patient and procedure confirmed by team. 12:18:39 ECG and BP/O2 sat monitors applied to patient. 12:29:44 Vital chart was started 12:29:46 Full Disclosure recording started 12:29:54 Rhythm: sinus rhythm 12:30:02 0.9% NaCl 100 ml/hr I.V. was administered by Lorena Catalan RN; used for procedure; 12:30:11 Oxygen 2 l/min etCO2 Nasal cannula was administered by Lorena Catalan RN; used for procedure; 12:30:16 H&P Date Dictated: 09/13/2018 Within 30 days and on chart.. 12:30:18 Lidocaine 2% 20ml vial added to field was administered by King Parker MD; for local anesthetic; 12:30:24 Heparin Flush Bag (1000units/500ml NS) 2 bags added to field was administered by King Parker MD; used for procedure; 12:30:27 Pre-procedure instructions explained to patient. 12:30:28 Pre-op teaching completed and patient verbalized understanding. 12:30:32 Family in waiting room. 12:30:51 FAMILY IN ICU WAITING ROOM 12:30:54 Patient NPO since Midnight. 12:31:01 Patient allergic to No known allergies 12:31:07 Is the patient allergic to Iodine/contrast media? No. 12:31:16 Is patient on blood thinner?No 12:31:19 Patient diabetic? No. 12:31:22 Previous problem with sedation/anesthesia? No ? 12:31:23 Snore? No 12:31:24 Sleep apnea? No 12:31:25 Deviated septum? No 12:31:25 Opens mouth fully? Yes 12:31:26 Sticks out tongue? Yes 12:31:28 Airway obstruction? No ? 12:31:31 Dentures? Yes in 12:31:34 Pre procedure: right dorsailis pedis pulse 2+ Normal; easily identifiable; not easily obliterated 12:31:41 Patient pain scale 0/10 ?. 12:31:50 IV patent on arrival in right forearm with 0.9% NaCl at [facility]. 12:31:52 Lab results completed and on chart. 12:31:57 Right groin area was prepped with chlora-prep and draped in sterile fashion 12:31:58 Alarms reviewed by R. N. 12:31:58 Sharps counted by scrub and verified by R.N. 12:32:27 Baseline sample Acquired. 12:32:37 Use device set Femoral Dx 12:32:38 ACIST Syringe (60452) opened to sterile field. 12:32:39 Bag Decanter (2002) opened to sterile field. 12:32:39 Medline Cath Pack ([id number]) opened to sterile field. 12:32:40 DIAGNOSTIC WIRE .035 260cm J wire (927429) opened to sterile field. 12:32:41 ACIST Hand Control (15945) opened to sterile field. 12:32:41 ACIST Manifold (89750) opened to sterile field. 12:32:42 DIAGNOSTIC Multipack 5Fr catheter set (VT7562) opened to sterile field. 12:32:42 Tegaderm 4 x 4 (1626W) opened to sterile field. 12:32:43 SHEATH 5FR [place] (NAG114) opened to sterile field. 12:34:30 Final Timeout: patient, procedure, and site verified with staff and physician. All members of the team are in agreement. 12:34:31 Right groin site verified by team. 12:34:33 Physical assessment completed. ASA score P 2 - A patient with mild systemic disease as per King Parker MD. 12:34:35 Sedation plan: IV Moderate Sedation Medication:Versed, Fentanyl 12:35:24 Versed 0.5 mg I.V. was administered by Lorena Catalan RN; for sedation; 12:35:32 Fentanyl 25 mcg I.V. was administered by Lorena Catalan RN; for sedation; 12:36:44 Zero performed for pressure channel P1 12:37:37 Procedure started. 12:37:40 Local anesthetic to right femoral artery with Lidocaine 2% by King Parker MD.INITIAL ACCESS ONLY 12:37:49 A 5 Fr sheath was inserted into the Right Femoral artery 12:39:13 GLIDE WIRE Super Stiff Angled 260cm (GI8075) opened to sterile field. 12:39:32 SS GLIDE wire advanced. 12:40:13 A MULTIPACK 3DRC 5Fr catheter was advanced over the wire and used for Right Coronary Angiography. 12:40:32 Use device set TAU PCI 12:40:33 SHEATH 6FR [place] (TKE259) opened to sterile field. 12:40:42 INFLATOR Merit BasixCompak (AQ7434) opened to sterile field. 12:40:46 CHOICE PT Extra Support 182cm wire (3814840N1) opened to sterile field. 12:40:58 A MULTIPACK JL 4.0 5Fr catheter was advanced over the wire and used for Left Coronary Angiography. 12:42:40 Comfrey [place] IVUS Catheter (11645C) opened to sterile field. 12:42:49 Catheter removed. 12:43:02 A MULTIPACK Pigtail 5 Fr catheter was advanced over the wire and used for LV Angiography. 12:43:17 Heparin Bolus 4000 units I.V. was administered by Lorena Catalan RN; for anticoagulation; verified with Dr. Parker 12:44:13 LV gram done using NICHOLS 12:44:24 EF : 70 % 12:44:29 Injector settings: Ml/sec: 10, Volume: 20, 12:44:30 Catheter removed. 12:44:35 Integrilin (Bolus 2mg/ml) 4.5 ml I.V. was administered by Lorena Catalan RN; for anticoagulation; wasted 5.5mL 12:44:37 Sheath upsized to a 6 Fr Short. 12:44:47 6 Fr XBLAD 3.5 guide catheter was inserted over the wire 12:46:47 CHOICE PT ES wire advanced. 12:47:37 IVUS catheter advanced over wire. 12:47:44 IVUS pass to Circ lesion performed. 12:48:28 IVUS catheter removed over wire. 12:49:48 Place stent Inflation Number: 1 A TANIYA RX 2.5 x 08 stent ([id number]) was prepped and advanced across the Mid CX. The stent was deployed at 17 IKE for 0:10 (min:sec). 12:49:55 Plavix 600 mg P.O. was administered by Lorena Catalan RN; for antiplatelet therapy; 12:50:10 Stent catheter was removed intact over wire. 12:50:11 Wire removed. 12:50:18 Wire redirected to LAD. 12:50:39 IVUS catheter advanced over wire. 12:51:52 IVUS pass to LAD lesion performed. 12:51:53 IVUS catheter removed over wire. 12:54:10 Place stent Inflation Number: 1 A TANIYA RX 2.5 x 22 stent ([id number]) was prepped and advanced across the Prox LAD. The stent was deployed at 15 IKE for 0:07 (min:sec). 12:54:23 Stent catheter was removed intact over wire. 12:54:23 Wire removed. 12:54:23 Guide catheter removed. 12:54:33 Sheath removed intact; hemostasis achieved with Exoseal to the Right Femoral artery. 12:55:01 Procedure ended.(Physican Out) 12:55:16 EXOSEAL 6Fr (EX600) opened to sterile field. 12:55:26 Fluoroscopy time 05.00 minutes. 12:55:32 Fluoroscopy dose: 167 mGy 12:55:32 Flurop Dose total: 167 12:55:36 Contrast amount:Isovue 300 130ml. 12:55:38 Sharps counted by scrub and verified by R.N. 12:55:39 Insertion/operative site no bleeding no hematoma. 12:55:42 Post-op/insertion site Right Femoral artery dressed using a 4 x 4 and Tegaderm. 12:55:45 Post right femoral artery:stable, clean and dry 12:55:46 Post Procedure Pulses reassessed and unchanged 12:55:49 Post-procedure physical assessment completed. ASA score P 2 - A patient with mild systemic disease as per King Parker MD. 12:55:51 Post procedure rhythm: unchanged. 12:55:55 Estimated blood loss: 10 ml 12:55:56 Post procedure instruction explained to patient.Patient verbalizes understanding. 12:55:56 Patient needs reinforcement of post procedure teaching. 12:56:45 Procedure type changed to Cath procedure, Diagnostic procedure, LHC, LHC w/Coronaries, FFR/IVUS, Intra-Coronary IVUS Initial, Intra-Coronary IVUS Additional, Sedation Charges, Moderate Sedation up to 15 minutes, PCI procedure, Coronary Stent, Coronary Stent Initial x2, Peripheral Cath Diagnostic Procedure, Artificial Glass Eye Maker Peripheral Procedures, Spgtq-Vkyhbtx-Hdl-Off 12:58:40 Procedure and supply charges have been captured, reviewed, submitted and are correct. 12:58:43 Vital chart was stopped 12:58:43 See physician's report for complete and final results. 12:58:46 Report given to ICU. 12:58:49 Patient transfered to ICU with Bed. 12:59:01 Procedure Complication : No complications 12:59:04 Procedure ended. 12:59:04 Full Disclosure recording stopped 12:59:07 End room use (Document Last) Intervention Summary Intervention Notes Time ActionType Lesion and Equipment Used Action# Pressure Duration Attributes 12:49:48 Place stent Mid CX TANIYA RX 2.5 x 1 17 00:10 08 stent ([id number]) 12:54:10 Place stent Prox LAD TANIYA RX 2.5 x 1 15 00:07 22 stent ([id number]) Device Usage Item Name Manufacture Quantity Catalog Number Hospital Part Current M inimal Lot# / Charge Number Stock Stock Serial# Code ACIST Syringe Acist 1 22726 232612 404424 839079 2 0 (69786) Gleam Inc Bag Decanter Microtek 1 2001S 502318 27522 312934 5 (2001S) Medical Inc. Medline Cath Medline 1 [id number] 726919 78232 302339 5 Pack ([id number]) DIAGNOSTIC St Tom 1 704289 397765 856885 114475 3 0 WIRE .035 260cm J wire (209444) ACIST Hand Acist 1 54749 368566 182520 964344 5 Control Medical (68440) Systems Inc ACIST Manifold Acist 1 82428 474371 912676 921352 5 (12131) Medical Systems Inc DIAGNOSTIC Cardinal 1 BM5148 331031 45968 248447 3 0 Multipack 5Fr Health catheter set (JO7912) Tegaderm 4 x 4 3M 1 1626W 288550 259232 166153 5 (1626W) SHEATH 5FR Terumo 1 OQR346 643232 194909 069893 4 0 [place] (FUF217) GLIDE WIRE Terumo 1 SV9213 155320 048483 266266 5 Super Stiff Angled 260cm (AP4086) MULTIPACK 3DRC Cardinal 1 860913 5 5Fr catheter Health SHEATH 6FR Terumo 1 PKD739 472151 470359 644131 4 0 [place] (ECI213) INFLATOR Merit Merit 1 GG6908 374260 656310 618170 1 5 eTutor (NZ0594) CHOICE PT [place] 1 [id number] 561086 884200 906650 5 Extra Support Scientific 182cm wire ([id number]) MULTIPACK JL Cardinal 1 835266 5 4.0 5Fr Health catheter Comfrey Comfrey 1 43575W 804827 684463 569588 8 [place] Eagleye IVUS Catheter (91912V) MULTIPACK Cardinal 1 914716 5 Pigtail 5 Fr Health catheter TANIYA RX 2.5 x Medtronic 1 [id number] 010826 3206533 366930 5 [id number] 08 stent ([id number]) TANIYA RX 2.5 x Medtronic 1 [id number] 619418 5528307 695626 5 [id number] 22 stent ([id number]) EXOSEAL 6Fr Cardinal 1 EX600 011013 349201 534622 1 0 (EX600) Health Signature Audit [place] Stage Time Signature Unsigned Intra-Procedure 09/14/2018 Thalia 12:59:19 PM Counts RT(R) Signatures Monitor : Thalia Signature : Counts RT Date : Time : [address] [place] [id number]
--- NOTE | ~2018-09-13 | CN ---
PATIENT NAME:RADHA ERICKSON MEDICAL RECORD: [id number] : 37 LOCATION:[facility].2309 ADMIT DATE: 09/13/18 ACCOUNT: [id number] CONSULTING PHYSICIAN: SHANNAN AGARWAL MD REFERRING PHYSICIAN: HIEU PITTS MD DATE OF CONSULTATION: 09/13/2018 DIAGNOSES: 1. New-onset atrial fibrillation. 2. Tachycardia. 3. Angina. 4. Abnormal ECG. 5. Pneumothorax. 6. Hypercalcemia. HISTORY: This is an 83-year-old female with no history of ischemic heart disease, who had onset of chest pressure this morning followed by nausea and vomiting followed by a sharp acute chest pain. She presents to the Emergency Room. She is in atrial fibrillation with rapid ventricular response and has marked ST-T abnormalities on her EKG as well has a spontaneous small pneumothorax on the left. She has not had a history of ischemic heart disease. Her first troponin is normal. She continues to have the chest pressure with the tachycardia. PHYSICAL EXAMINATION: GENERAL APPEARANCE: Well-nourished, well-developed, appears stated age. Level of distress, comfortable. PSYCHIATRIC: Mental status, alert, normal affect. Orientation, oriented to time, place and person. EYES: Lids and conjunctiva, noninjected. No discharge, no pallor. ENT: Lips, teeth, gums, normal dentition. Oropharynx, no cyanosis, no pallor. NECK: Carotid arteries, bilateral normal upstroke, no bruits, no thrills. JUGULAR VEINS: No jugular venous pressure or distention. CERVICAL LYMPH NODES: Nontender, nonenlarged. THYROID: Not enlarged. Nontender. No nodules. LUNGS: Respiratory effort, unlabored. CHEST: Normal curvature. No thoracic deformity. No chest wall tenderness. Percussion, resonant. Auscultation, clear. No wheezes, no rales, no rhonchi. CARDIOVASCULAR: Irregularly irregular, tachycardic, with atrial fibrillation. EXTREMITIES: No cyanosis, no edema. Peripheral pulses, full and equal in all extremities, except as noted. No bruits appreciated. ABDOMEN: Soft, nondistended. Normal aorta. No bruit. Nontender. No masses. Liver, nontender, no hepatomegaly. Spleen, nontender, no splenomegaly. MUSCULOSKELETAL: No joint tenderness. No joint swelling. No erythema. NEUROLOGICAL: Normal gait, normal strength, normal tone. SKIN: Warm and dry. OVERALL IMPRESSION: New-onset atrial fibrillation with grossly ischemic changes on the EKG. We will slow her down with Cardizem. She is very nauseated at this point. I do not think that she can hold anything down. We will as well try nitro paste. She will need cardiac catheterization, but only after being stabilized from a cardiac standpoint. Surgery has already been consulted for the pneumothorax. TRANSINT:[id number] Voice Confirmation ID: [id number] DOCUMENT ID: [id number] CONSULT REPORT [id number] RADHA ERICKSON, SHANNAN HERRING at 1138 CC: [id number] DICTATION DATE: 09/13/18 1611 BINDING CUTTER SYNTHETIC CLOTH: 09/13/18 1833 ADM IN [place] [address] [place] [address]
--- NOTE | ~2018-09-13 | MORECARE ---
CASE MANAGEMENT DISCHARGE SUMMARY PATIENT: RADHA GIBSON UNIT: [id number] ADM DATE: 09/13/18 AGE: 83 : 36 SEX: F ROOM/BED: D.2106 AUTHOR: SOPHIA,DOC PHYSICIAN: REFERRING PHYSICIAN: HIEU PITTS MD DATE OF SERVICE: 09/27/18 Discharge Plan Patient Name: RADHA GIBSON Facility: [facility]:[place] : 1935 Planned Disposition: Home Health Service Anticipated Discharge Date: 09/25/18 Discharge Date: 09/25/2018 Expected LOS: 12 Initial Reviewer: [email or web address] Initial Review Date: 09/13/2018 Generated: 09/27/18 12:59 pm Comments DCP- Discharge Planning Updated by [email or web address]: Jim Shipley on 09/27/18 10:[address] Patient Name: RADHA GIBSON Encounter No: [id number] : 1935 Primary Insurance: MEDICARE A & B Anticipated DC Date: 09-25-2018 Planned Disposition: Home Health Service External Planned Provider: [facility] DCP follow-up note: CM RECIEVED CALL FROM TOÑO OF [facility], , WHO INFORMED PT THAT SHE NEVER RECEIVED PAPERWORK FROM [facility] SET UP TO BILL FOR THE SERVICE; REQUESTED CLINICAL INFORMATION BE SENT FOR ORDER PROCESSING. CM FAXED REQUESTED INFORMATION TO [facility] AT [phone], WITH DIRECTION TO CONTACT DR. PITTS IN CLINIC FOR ANY NEEDED SIGNATURES. Jim Shipley, JASMINE RENE DCP- Discharge Planning Updated by [id number]: Smita William on 09/25/18 5:[address] LATE ENTRY 1300 CM MET WITH THE PATIENT AND HER , MARISSA, AT THE BEDSIDE.. SHE GAVE PERMISSION FOR CM TO SPEAK WITH MARISSA PRESENT. CM REVIEWED DISCHARGE IMM. PATIENT UNDERSTOOD. SHE AND HER REVIEWED THE IMM FORM. CM ANSWERED THEIR QUESTIONS. THEY ARE ANXIOUS FOR DISCHARGE. CM DISCUSSED HOME HEALTH PROVIDERS. THE PATIENT AND HER CHOSE [facility], DISCHARGE IMM SIGNED BY THE PATIENT. PATIENT CHOICE FORM SIGNED BY THE PATIENT. CM HAD RESPIRTAORY TO OBTAIN O2 SATS RESTING ON RM AIR 90%, O2 SAT WITH EXERCISE ON RM AIR IS 87%. PATIENT PLACED BACK ON OXYGEN 2/L VIA NASAL CANNULA. SHE RECOVERED TO 94%. CM DISCUSSED OXYGEN THERAPY FOR HOME. PATIENT WAS AWARE SHE WOULD NEED HOME O2. DISCUSSED PROVIDERS. THEY CHOSE [facility] THEY ARE CLOSE TO THE PATIENT'S RESIDENCE. TC TO [facility] [facility] [phone]. REC CB. PORTABLE UNIT DELIVERED TO THE PATIENT'S BEDSIDE. STATIONARY UNIT TO BE DELIVERED TO PATIENT'S HOME WHEN THEY ARRIVE. TC TO [facility]. CM SPOKE WITH NOA. WILL FAX REFERRAL FOR SN AND PHYSICAL THERAPY. PATIENT DISCHARGE TO HOME VIA AMBULANCE PER MD ORDER. SHE HAS MULTIPLE STAIRS TO NEGOTIATE. O2 SATS DROP WITH ACTIVITY. S/P 3 PTCA AND STENTS TO 3 VESSELS. S/P CHEST PIGTAIL DRAINAGE TUBE FOR PTX. SHE ALSO HAS OSTEOARTHRITIS. DCP- Discharge Planning Updated by [id number]: Smita William on 09/24/18 2:[address] PATIENT IS ON NASAL O2 AT 3/4 LITERS. WAS NOT ON OXYGEN PRIOR TO ADMISSION. CTA OF CHEST- IMPRESSION: 1. No evidence of pulmonary emboli. 2. Moderate bilateral pleural effusions with adjacent atelectasis or infiltrate. 3. Mildly prominent precarinal lymph node, nonspecific. 4. Aortic and coronary artery atherosclerosis. 5. 7 cm left renal cyst, incompletely visualized. IV SOLUMEDROL AND LEVAQUIN ADDED. INCREASE ACTIVITY AND PULMONARY TOILETRY. MONITOR. CM SPOKE WITH PRIMARY NURSE. WILL REGARDING POSSIBLE NEED FOR HOME O2. DCP- Discharge Planning Updated by [id number]: Swetha Gamble on 09/13/18 5:[address] CM met with patient and spouse, Marissa, @bedside in ER to discuss dc needs/plans. Patient is alert/oriented, gives permission to speak with spouse in room. PCP: Dr. Pitts. Pharmacy: [facility]. Emergency contact: Marissa Arthur (spouse) cell #[phone] or #[phone]. Patient states she is Independent in her care at home. Denies having HHS or DME. States at this time, she does not feel she will require additional services and reports she feels safe returning to her previous environment. Patient denies being hospitalized within the past 30 days. Patient is on O2 during this stay and may require a RA SAT to determine need for home O2 upon discharge. CM will follow and assist PRN. Swetha Tye RN CM DCPIA - Discharge Planning Initial Assessment Updated by [email or web address]: Swetha Gamble on 09/13/18 6:12 pm * Is the patient Alert and Oriented? Yes * How many steps to enter\exit or inside your home? * PCP Dr. Pitts * Pharmacy [facility] * Preadmission Environment Home with Family * ADLs Independent * Equipment None * Other Equipment NA * List name and contact numbers for known caregivers / representatives who currently or will assist patient after discharge: Marissa Gibson (spouse) cell [phone] or [phone] * Verbal permission to speak to the caregivers and representatives has been obtained from the patient. Yes * Community resources currently utilized None * Please name any agencies selected above. NA * Additional services required to return to the preadmission environment? No * Can the patient safely return to the preadmission environment? Yes * Has this patient been hospitalized within the prior 30 days at any hospital? No Coverage Notice Reviewer: [id number] Janna William Notice Issued Date-Time: 09/25/2018 11:38 Notice Type: IM Discharge Notice Notice Delivered To: Patient Relationship to Patient: Clinical Nurse Educator Name: Delivery Method: HAND - Hand Delivered Nataliia Days: Prior Verbal Notification: Recipient Understood Notice: Yes Recipient Signature: Yes Med Rec Note Co-signed by Attending: Coverage Notice Comment: PATIENT REVIEWED AND STATED SHE UNDERSTOOD. COPY TO THE PATIENT AND COPY TO HARD COVER CHART. Last DP export: 09/27/18 10:44 Patient Name: RADHA GIBSON Page [phone] at 1159 All edits/amendments must be made on the electronic document DICTATION DATE: 09/27/18 115 FAMILY COACH: CHRISTEL 09/27/18 1159 RPT#: [id number] DC DATE:09/25/18 STATUS: DIS IN [facility] [address] [place] [address] END OF REPORT
--- NOTE | ~2018-09-13 | OP ---
PATIENT NAME: RADHA [place] MEDICAL RECORD: [id number] :37 LOCATION:D.[facility] D.2309 ADMISSION DATE:09/13/18 SURGEON: SHANNAN AGARWAL MD DATE OF OPERATION: 09/15/2018 DATE OF SERVICE: 09/15/2018 PROCEDURES: 1. Aortofemoral runoff. 2. Abdominal aortography. INDICATION: Claudication and peripheral vascular disease. PROCEDURE PERFORMED: After informed consent was obtained and after detailed description of risks, benefits as well as alternative therapies, the patient elected to proceed with angiogram and angioplasty. The right femoral area had a preexisting sheath from cardiac intervention. All catheters exchanged through this sheath. FINDINGS: Abdominal aortography was performed. The catheter was pulled down for aortofemoral runoff. Abdominal aortography reveals mild irregularities of the abdominal aorta. No dissection or aneurysm formation. No renal artery stenosis. RIGHT LE. Iliac: The common iliac is tortuous, calcified, but no significant stenosis. The internal and external iliacs have mild irregularities, but no flow-limiting stenosis. 2. Femoral system: The common superficial and deep femoral have mild irregularities, but no flow-limiting stenosis. 3. Popliteal and infrapopliteal vessels are widely patent with good 3-vessel runoff to the foot. LEFT LE. Iliac: The common iliac is tortuous, calcified, but no significant stenosis. The internal and external iliacs have mild irregularities, but no flow-limiting stenosis. 2. Femoral system: The common superficial and deep femoral have mild irregularities, but no flow-limiting stenosis. 3. Popliteal and infrapopliteal vessels are widely patent with good 3-vessel runoff to the foot. OVERALL IMPRESSION: Calcification and tortuosity of the iliac system, but no flow-limiting stenosis. Minimal peripheral vascular disease is present elsewise. Continue medical management of the peripheral vascular disease and peripheral vascular disease risk factors. TRANSINT:[id number] Voice Confirmation ID: [id number] DOCUMENT ID: [id number] OPERATIVE REPORT [id number] RADHA ERICKSON JEFFREY MD at 1856 CC: [id number] DICTATION DATE: 09/15/18 1248 CUSTOMER LIAISON: 09/15/18 1309 ADM IN [place] [id number] [place] [address]
--- NOTE | ~2018-09-13 | MORECARE ---
CASE MANAGEMENT DISCHARGE SUMMARY PATIENT: RADHA GIBSON UNIT: [id number] ADM DATE: 09/13/18 AGE: 83 : 36 SEX: F ROOM/BED: D.2107 AUTHOR: SOPHIA,DOC PHYSICIAN: REFERRING PHYSICIAN: HIEU PITTS MD DATE OF SERVICE: 09/24/18 Discharge Plan Patient Name: RADHA GIBSON Facility: [facility]:[place] : 1935 Planned Disposition: Anticipated Discharge Date: Discharge Date: Expected LOS: Initial Reviewer: [email or web address] Initial Review Date: 09/13/2018 Generated: 09/24/18 4:59 pm Comments DCP- Discharge Planning Updated by [email or web address]: Smitacuauhtemoc William on 09/24/18 2:[address] PATIENT IS ON NASAL O2 AT 3/4 LITERS. WAS NOT ON OXYGEN PRIOR TO ADMISSION. CTA OF CHEST- IMPRESSION: 1. No evidence of pulmonary emboli. 2. Moderate bilateral pleural effusions with adjacent atelectasis or infiltrate. 3. Mildly prominent precarinal lymph node, nonspecific. 4. Aortic and coronary artery atherosclerosis. 5. 7 cm left renal cyst, incompletely visualized. IV SOLUMEDROL AND LEVAQUIN ADDED. INCREASE ACTIVITY AND PULMONARY TOILETRY. MONITOR. CM SPOKE WITH PRIMARY NURSE. WILL REGARDING POSSIBLE NEED FOR HOME O2. DCP- Discharge Planning Updated by [email or web address]: Swetha Gamble on 09/13/18 5:[address] CM met with patient and spouse, Saurabh, @bedside in ER to discuss dc needs/plans. Patient is alert/oriented, gives permission to speak with spouse in room. PCP: Dr. Pitts. Pharmacy: [facility]. Emergency contact: Saurabh Gibson (spouse) cell #[phone] or #[phone]. Patient states she is Independent in her care at home. Denies having HHS or DME. States at this time, she does not feel she will require additional services and reports she feels safe returning to her previous environment. Patient denies being hospitalized within the past 30 days. Patient is on O2 during this stay and may require a RA SAT to determine need for home O2 upon discharge. CM will follow and assist PRN. Swetha Gamble RN, CM DCPIA - Discharge Planning Initial Assessment Updated by [email or web address]: Swetha Gamble on 09/13/18 6:12 pm * Is the patient Alert and Oriented? Yes * How many steps to enter\exit or inside your home? * PCP Dr. Pitts * Pharmacy [facility] * Preadmission Environment Home with Family * ADLs Independent * Equipment None * Other Equipment NA * List name and contact numbers for known caregivers / representatives who currently or will assist patient after discharge: Saurabh Gibson (spouse) cell [phone] or [phone] * Verbal permission to speak to the caregivers and representatives has been obtained from the patient. Yes * Community resources currently utilized None * Please name any agencies selected above. NA * Additional services required to return to the preadmission environment? No * Can the patient safely return to the preadmission environment? Yes * Has this patient been hospitalized within the prior 30 days at any hospital? No Last DP export: 09/19/18 4:58 Patient Name: RADHA GIBSON Page 63338 at 1559 All edits/amendments must be made on the electronic document DICTATION DATE: 09/24/181557 COTTON CONVERTER: CHRISTEL 09/24/181557 RPT#: [id number] DC DATE: STATUS: ADM IN [facility] [address] [place] [address] END OF REPORT
--- NOTE | ~2018-09-13 | MORECARE ---
CASE MANAGEMENT DISCHARGE SUMMARY PATIENT: RADHA GIBSON UNIT: [id number] ADM DATE: 09/13/18 AGE: 83 : 36 SEX: F ROOM/BED: D.2309 AUTHOR: SOPHIA,DOC PHYSICIAN: REFERRING PHYSICIAN: HIEU PITTS MD DATE OF SERVICE: 09/13/18 Discharge Plan Patient Name: RADHA GIBSON Facility: [facility]:[place] : 1935 Planned Disposition: Anticipated Discharge Date: Discharge Date: Expected LOS: Initial Reviewer: [email or web address] Initial Review Date: 09/13/2018 Generated: 09/13/18 7:17 pm DCP- Discharge Planning Updated by [email or web address]: Swetha Gamble on 09/13/18 5:[address] CM met with patient and spouse, Saurabh, @bedside in ER to discuss dc needs/plans. Patient is alert/oriented, gives permission to speak with spouse in room. PCP: Dr. Pitts. Pharmacy: [facility]. Emergency contact: Saurabh Gibson (spouse) cell #[phone] or #[phone]. Patient states she is Independent in her care at home. Denies having HHS or DME. States at this time, she does not feel she will require additional services and reports she feels safe returning to her previous environment. Patient denies being hospitalized within the past 30 days. Patient is on O2 during this stay and may require a RA SAT to determine need for home O2 upon discharge. CM will follow and assist PRN. Swetha Gamble RN, CM DCPIA - Discharge Planning Initial Assessment Updated by [email or web address]: Swetha Gamble on 09/13/18 6:12 pm * Is the patient Alert and Oriented? Yes * How many steps to enter\exit or inside your home? * PCP Dr. Pitts * Pharmacy [facility] * Preadmission Environment Home with Family * ADLs Independent * Equipment None * Other Equipment NA * List name and contact numbers for known caregivers / representatives who currently or will assist patient after discharge: Saurabh Gibson (spouse) cell [phone] or [phone] * Verbal permission to speak to the caregivers and representatives has been obtained from the patient. Yes * Community resources currently utilized None * Please name any agencies selected above. NA * Additional services required to return to the preadmission environment? No * Can the patient safely return to the preadmission environment? Yes * Has this patient been hospitalized within the prior 30 days at any hospital? No Last DP export: 09/13/18 5:10 Patient Name: RADHA GIBOSN Page 10580 at 1817 All edits/amendments must be made on the electronic document DICTATION DATE: 09/13/181816 ROVING INSPECTOR: CHRISTEL 09/13/181816 RPT#: [id number] DC DATE: STATUS: ADM IN [facility] [address] [place] [address] END OF REPORT
--- NOTE | ~2018-09-13 | MORECARE ---
CASE MANAGEMENT DISCHARGE SUMMARY PATIENT: RADHA GIBSON UNIT: [id number] ADM DATE: 09/13/18 AGE: 83 : 36 SEX: F ROOM/BED: D.2106 AUTHOR: SOPHIA,DOC PHYSICIAN: REFERRING PHYSICIAN: HIEU PITTS MD DATE OF SERVICE: 09/27/18 Discharge Plan Patient Name: RADHA GIBSON Facility: [facility]:[place] : 1935 Planned Disposition: Home Health Service Anticipated Discharge Date: 09/25/18 Discharge Date: 09/25/2018 Expected LOS: 12 Initial Reviewer: [email or web address] Initial Review Date: 09/13/2018 Generated: 09/27/18 12:44 pm Comments DCP- Discharge Planning Updated by [email or web address]: Smita William on 09/25/18 5:[address] LATE ENTRY 1300 CM MET WITH THE PATIENT AND HER , MARISSA, AT THE BEDSIDE.. SHE GAVE PERMISSION FOR CM TO SPEAK WITH MARISSA PRESENT. CM REVIEWED DISCHARGE IMM. PATIENT UNDERSTOOD. SHE AND HER REVIEWED THE IMM FORM. CM ANSWERED THEIR QUESTIONS. THEY ARE ANXIOUS FOR DISCHARGE. CM DISCUSSED HOME HEALTH PROVIDERS. THE PATIENT AND HER CHOSE [facility], DISCHARGE IMM SIGNED BY THE PATIENT. PATIENT CHOICE FORM SIGNED BY THE PATIENT. CM HAD RESPIRTAORY TO OBTAIN O2 SATS RESTING ON RM AIR 90%, O2 SAT WITH EXERCISE ON RM AIR IS 87%. PATIENT PLACED BACK ON OXYGEN 2/L VIA NASAL CANNULA. SHE RECOVERED TO 94%. CM DISCUSSED OXYGEN THERAPY FOR HOME. PATIENT WAS AWARE SHE WOULD NEED HOME O2. DISCUSSED PROVIDERS. THEY CHOSE [facility] THEY ARE CLOSE TO THE PATIENT'S RESIDENCE. TC TO [facility] [phone]. REC CB. PORTABLE UNIT DELIVERED TO THE PATIENT'S BEDSIDE. STATIONARY UNIT TO BE DELIVERED TO PATIENT'S HOME WHEN THEY ARRIVE. TC TO [facility]. CM SPOKE WITH NOA. WILL FAX REFERRAL FOR SN AND PHYSICAL THERAPY. PATIENT DISCHARGE TO HOME VIA AMBULANCE PER MD ORDER. SHE HAS MULTIPLE STAIRS TO NEGOTIATE. O2 SATS DROP WITH ACTIVITY. S/P 3 PTCA AND STENTS TO 3 VESSELS. S/P CHEST PIGTAIL DRAINAGE TUBE FOR PTX. SHE ALSO HAS OSTEOARTHRITIS. DCP- Discharge Planning Updated by [email or web address]: Smita William on 09/24/18 2:[address] PATIENT IS ON NASAL O2 AT 3/4 LITERS. WAS NOT ON OXYGEN PRIOR TO ADMISSION. CTA OF CHEST- IMPRESSION: 1. No evidence of pulmonary emboli. 2. Moderate bilateral pleural effusions with adjacent atelectasis or infiltrate. 3. Mildly prominent precarinal lymph node, nonspecific. 4. Aortic and coronary artery atherosclerosis. 5. 7 cm left renal cyst, incompletely visualized. IV SOLUMEDROL AND LEVAQUIN ADDED. INCREASE ACTIVITY AND PULMONARY TOILETRY. MONITOR. CM SPOKE WITH PRIMARY NURSE. WILL REGARDING POSSIBLE NEED FOR HOME O2. DCP- Discharge Planning Updated by [email or web address]: Swetha Gamble on 09/13/18 5:[address] CM met with patient and spouse, Marissa, @bedside in ER to discuss dc needs/plans. Patient is alert/oriented, gives permission to speak with spouse in room. PCP: Dr. Pitts. Pharmacy: [facility]. Emergency contact: Marissa Gibson (spouse) cell #[phone] or #[phone]. Patient states she is Independent in her care at home. Denies having HHS or DME. States at this time, she does not feel she will require additional services and reports she feels safe returning to her previous environment. Patient denies being hospitalized within the past 30 days. Patient is on O2 during this stay and may require a RA SAT to determine need for home O2 upon discharge. CM will follow and assist PRN. Swetha Gamble RN, CM DCPIA - Discharge Planning Initial Assessment Updated by [email or web address]: Swetha Gamble on 09/13/18 6:12 pm * Is the patient Alert and Oriented? Yes * How many steps to enter\exit or inside your home? * PCP Dr. Pitts * Pharmacy [facility] * Preadmission Environment Home with Family * ADLs Independent * Equipment None * Other Equipment NA * List name and contact numbers for known caregivers / representatives who currently or will assist patient after discharge: Marissa Gibson (spouse) cell [phone] or [phone] * Verbal permission to speak to the caregivers and representatives has been obtained from the patient. Yes * Community resources currently utilized None * Please name any agencies selected above. NA * Additional services required to return to the preadmission environment? No * Can the patient safely return to the preadmission environment? Yes * Has this patient been hospitalized within the prior 30 days at any hospital? No External Providers External Provider: [facility] Next Contact Date: 09/27/2018 Service Request Date: Service Type: Resolution: Reviewer: Comments: Coverage Notice Reviewer: [email or web address] - Smita William Notice Issued Date-Time: 09/25/2018 11:38 Notice Type: IM Discharge Notice Notice Delivered To: Patient Relationship to Patient: Physical Optics Teacher Name: Delivery Method: HAND - Hand Delivered Nataliia Days: Prior Verbal Notification: Recipient Understood Notice: Yes Recipient Signature: Yes Med Rec Note Co-signed by Attending: Coverage Notice Comment: PATIENT REVIEWED AND STATED SHE UNDERSTOOD. COPY TO THE PATIENT AND COPY TO HARD COVER CHART. Last DP export: 09/26/18 7:33 Patient Name: RADHA GIBSON Page 21322 at 1144 All edits/amendments must be made on the electronic document DICTATION DATE: 09/27/18 1144 PAROLE DIRECTOR: CHRISTEL 09/27/18 1144 RPT#: [id number] DC DATE:09/25/18 STATUS: DIS IN [facility] [address] [place] [address] END OF REPORT
[~2018-09-13 14:05] MED LIST: AZOR 10-40 MG T1 TAB PO; PRAVACHOL80 MG PO
[2018-09-13] MEDS ORDERED: ZESTRIL40 MG PO ×2 (14:15→19:58)
[2018-09-13] MEDS ORDERED: COZAAR25 MG PO (14:15)
[2018-09-13] MEDS ORDERED: OMEPRAZOLE20 M1 PO (14:16)
[2018-09-13 14:56] LABS: BASOPHILS 0.2 % (0-2); EOSINOPHILS 0.1 % (0-7); HEMOGLOBIN 13.7 g/dL (12-16); IMMATURE GRANULOCYTES 0.4 % (0-5); LYMPHOCYTES 7.1 % (15-50); MCH 33.3 pg (26.0-34.0); MCHC 35.1 g/dL (31.0-37.0); MCV 94.7 fL (80.0-100.0); MEAN PLATELET VOLUME 9.2 fL (7.4-10.4); MONOCYTES 7.2 % (2-11); PLATELET COUNT 229 10x3/uL (130-400); RBC 4.12 10x6/uL (4.00-5.40); RDW 12.2 % (11.5-14.5); WBC 13.8 10x3/uL (4.8-10.8)
[2018-09-13 15:06] LABS: APTT 20.1 SECONDS (22.8-39.4); INR 0.98 (0.85-1.17); PROTIME 12.6 SECONDS (11.6-15.0)
[2018-09-13 15:07] LABS: D-DIMER-QUANTITATIVE 0.27 ug/mLFEU (0.20-0.54)
[2018-09-13 15:25] LABS: ALBUMIN 3.8 g/dL (3.4-5.0); ALKALINE PHOSPHATASE 50 U/L (46-116); ALT (SGPT) 14 U/L (10-68); BILIRUBIN - TOTAL 0.95 mg/dL (0.2-1.3); CARBON DIOXIDE 28.4 mmol/L (21.0-32.0); CHLORIDE - SERUM 100 mmol/L (98-107); CKMB 1.7 U/L (0.0-3.6); CREATINE KINASE 42 UL (21-215); CREATININE - SERUM 0.7 mg/dL (0.6-1.3); POTASSIUM - SERUM 3.5 mmol/L (3.5-5.1); PROTEIN - SERUM 7.4 g/dL (6.4-8.2); SODIUM 139 mmol/L (136-145); UREA NITROGEN 15 mg/dL (7-18); eGFR NON AFRICAN AMERICAN 85 mL/min (90-120)
[2018-09-13 15:31] LABS: CALC OSMOLALITY 284 mosm/kg (275-300); GLUCOSE 203 mg/dL (74-106); TROPONIN-I < 0.017 ng/mL (0.000-0.060)
[2018-09-13 15:33] LABS: CALCIUM 14.9 mg/dL (8.5-10.1)
[2018-09-13] MEDS ORDERED: CELEXA10 MG PO (23:13)
[2018-09-13] MEDS ORDERED: NORMODYNE / TR200 MG PO (23:14)
[2018-09-13] MEDS ORDERED: CO Q-10100 MG PO (23:16)
[2018-09-14] VITALS (25 sets, daily range): BP systolic 114–227; BP diastolic 43–106; BMI 19.4
[2018-09-14 04:31] LABS: BASOPHILS 0.1 % (0-2); EOSINOPHILS 0 % (0-7); HEMATOCRIT 36.4 % (36.0-48.0); HEMOGLOBIN 12.5 g/dL (12-16); IMMATURE GRANULOCYTES 0.3 % (0-5); LYMPHOCYTES 11.1 % (15-50); MCH 32.9 pg (26.0-34.0); MCHC 34.3 g/dL (31.0-37.0); MCV 95.8 fL (80.0-100.0); MEAN PLATELET VOLUME 9.8 fL (7.4-10.4); MONOCYTES 8.5 % (2-11); PLATELET COUNT 220 10x3/uL (130-400); RDW 12.4 % (11.5-14.5); WBC 11.7 10x3/uL (4.8-10.8)
[2018-09-14 05:21] LABS: CARBON DIOXIDE 30.8 mmol/L (21.0-32.0); CHLORIDE - SERUM 102 mmol/L (98-107); CREATINE KINASE 81 UL (21-215); POTASSIUM - SERUM 3.4 mmol/L (3.5-5.1); SODIUM 139 mmol/L (136-145)
[2018-09-14 05:25] LABS: CALC OSMOLALITY 284 mosm/kg (275-300); CREATININE - SERUM 1.2 mg/dL (0.6-1.3); GLUCOSE 147 mg/dL (74-106); UREA NITROGEN 25 mg/dL (7-18); eGFR NON AFRICAN AMERICAN 45 mL/min (90-120)
[2018-09-14 05:26] LABS: CALCIUM 12.1 mg/dL (8.5-10.1)
[2018-09-14 05:27] LABS: TROPONIN-I 0.072 ng/mL (0.000-0.060)
[2018-09-15] VITALS (22 sets, daily range): BP systolic 122–199; BP diastolic 49–95
[2018-09-15 04:05] LABS: BASOPHILS 0.3 % (0-2); EOSINOPHILS 1.1 % (0-7); HEMATOCRIT 36.8 % (36.0-48.0); HEMOGLOBIN 12.2 g/dL (12-16); IMMATURE GRANULOCYTES 0.2 % (0-5); LYMPHOCYTES 16.7 % (15-50); MCH 32.7 pg (26.0-34.0); MCHC 33.2 g/dL (31.0-37.0); MEAN PLATELET VOLUME 9.8 fL (7.4-10.4); MONOCYTES 11.5 % (2-11); NEUTROPHILS 70.2 % (40-80); PLATELET COUNT 178 10x3/uL (130-400); RBC 3.73 10x6/uL (4.00-5.40); RDW 12.7 % (11.5-14.5); WBC 9.7 10x3/uL (4.8-10.8)
[2018-09-15 04:11] LABS: MCV 98.7 fL (80.0-100.0)
[2018-09-15 04:28] LABS: ALBUMIN 3.1 g/dL (3.4-5.0); BILIRUBIN - TOTAL 0.6 mg/dL (0.2-1.3); CALCIUM 10.4 mg/dL (8.5-10.1); CREATININE - SERUM 1.2 mg/dL (0.6-1.3); PROTEIN - SERUM 6.4 g/dL (6.4-8.2)
[2018-09-15 04:45] LABS: ANION GAP 9.7 mmol/L (8-16); POTASSIUM - SERUM 3.7 mmol/L (3.5-5.1)
[2018-09-15 09:04] LABS: CKMB 2.2 U/L (0.0-3.6); CREATINE KINASE 57 UL (21-215)
[2018-09-15 09:05] LABS: TROPONIN-I 0.233 ng/mL (0.000-0.060)
[2018-09-15 19:35] LABS: APPEARANCE CLEAR (CLEAR); COLOR STRAW (YELLOW); SPECIFIC GRAVITY 1.005 (1.005-1.020)
[2018-09-15 19:36] LABS: BILIRUBIN NEGATIVE (NEGATIVE); GLUCOSE NEGATIVE (NEGATIVE); KETONE SMALL mg/dL (NEGATIVE); NITRITE NEGATIVE (NEGATIVE); PROTEIN NEGATIVE (NEGATIVE); UROBILINOGEN NORMAL (NORMAL)
[2018-09-15 19:37] LABS: BACTERIA FEW /hpf (NONE SEEN); RED CELLS - URINE 0-5 /hpf (0-5); WHITE CELLS - URINE 0-5 /hpf (0-5)
[2018-09-15 19:38] LABS: TALC POWDER CRYSTALS 0-5 /hpf (NONE SEEN)
[2018-09-16] VITALS (23 sets, daily range): BP systolic 115–163; BP diastolic 40–85
[2018-09-16 08:50] LABS: BASOPHILS 0.3 % (0-2); EOSINOPHILS 3.1 % (0-7); HEMATOCRIT 31.7 % (36.0-48.0); HEMOGLOBIN 10.4 g/dL (12-16); IMMATURE GRANULOCYTES 0.3 % (0-5); LYMPHOCYTES 13.3 % (15-50); MCH 32.1 pg (26.0-34.0); MCHC 32.8 g/dL (31.0-37.0); MCV 97.8 fL (80.0-100.0); MEAN PLATELET VOLUME 9.9 fL (7.4-10.4); MONOCYTES 11.6 % (2-11); NEUTROPHILS 71.4 % (40-80); PLATELET COUNT 171 10x3/uL (130-400); RBC 3.24 10x6/uL (4.00-5.40); RDW 12.2 % (11.5-14.5); WBC 9.1 10x3/uL (4.8-10.8)
[2018-09-16 09:03] LABS: ANION GAP 12.6 mmol/L (8-16); CALCIUM 9.1 mg/dL (8.5-10.1); CARBON DIOXIDE 25.7 mmol/L (21.0-32.0); MAGNESIUM - SERUM 1.6 mg/dL (1.8-2.4); PHOSPHOROUS 2.6 mg/dL (2.5-4.9); POTASSIUM - SERUM 3.3 mmol/L (3.5-5.1)
[2018-09-16 09:04] LABS: CREATININE - SERUM 0.8 mg/dL (0.6-1.3)
[2018-09-17] VITALS (23 sets, daily range): BP systolic 66–179; BP diastolic 36–147
[2018-09-17 04:32] LABS: BASOPHILS 0.5 % (0-2); EOSINOPHILS 3.8 % (0-7); HEMATOCRIT 29.9 % (36.0-48.0); HEMOGLOBIN 10.1 g/dL (12-16); IMMATURE GRANULOCYTES 0.5 % (0-5); LYMPHOCYTES 17.5 % (15-50); MCH 32.5 pg (26.0-34.0); MCHC 33.8 g/dL (31.0-37.0); MCV 96.1 fL (80.0-100.0); MEAN PLATELET VOLUME 9.9 fL (7.4-10.4); NEUTROPHILS 65.7 % (40-80); PLATELET COUNT 178 10x3/uL (130-400); RBC 3.11 10x6/uL (4.00-5.40); RDW 12.2 % (11.5-14.5)
[2018-09-17 04:34] LABS: WBC 6.6 10x3/uL (4.8-10.8)
[2018-09-17 05:13] LABS: ALBUMIN 2.7 g/dL (3.4-5.0); ALKALINE PHOSPHATASE 33 U/L (46-116); ALT (SGPT) 12 U/L (10-68); BILIRUBIN - TOTAL 0.59 mg/dL (0.2-1.3); CALCIUM 9.1 mg/dL (8.5-10.1); CARBON DIOXIDE 27.1 mmol/L (21.0-32.0); CHLORIDE - SERUM 109 mmol/L (98-107); CREATININE - SERUM 0.7 mg/dL (0.6-1.3); GLUCOSE 114 mg/dL (74-106); PROTEIN - SERUM 6.1 g/dL (6.4-8.2); SODIUM 144 mmol/L (136-145); eGFR NON AFRICAN AMERICAN 85 mL/min (90-120)
[2018-09-17 05:20] LABS: CALC OSMOLALITY 288 mosm/kg (275-300); POTASSIUM - SERUM 2.8 mmol/L (3.5-5.1); UREA NITROGEN 15 mg/dL (7-18)
[2018-09-18] VITALS (24 sets, daily range): BP systolic 84–164; BP diastolic 47–83
[2018-09-18 03:58] LABS: BASOPHILS 0.6 % (0-2); EOSINOPHILS 3.2 % (0-7); HEMOGLOBIN 9.7 g/dL (12-16); IMMATURE GRANULOCYTES 0.8 % (0-5); LYMPHOCYTES 19.6 % (15-50); MCH 32.4 pg (26.0-34.0); MCHC 33.4 g/dL (31.0-37.0); MEAN PLATELET VOLUME 10.2 fL (7.4-10.4); MONOCYTES 12.1 % (2-11); NEUTROPHILS 63.7 % (40-80); PLATELET COUNT 189 10x3/uL (130-400); RBC 2.99 10x6/uL (4.00-5.40); RDW 12.4 % (11.5-14.5); WBC 7.2 10x3/uL (4.8-10.8)
[2018-09-18 04:01] LABS: ANION GAP 13.9 mmol/L (8-16); CALCIUM 8.3 mg/dL (8.5-10.1); CARBON DIOXIDE 22.9 mmol/L (21.0-32.0); POTASSIUM - SERUM 3.8 mmol/L (3.5-5.1)
[2018-09-18 04:04] LABS: CREATININE - SERUM 0.9 mg/dL (0.6-1.3)
[2018-09-19] VITALS (18 sets, daily range): BP systolic 15–180; BP diastolic 54–120
[2018-09-19 01:22] LABS: APPEARANCE HAZY (CLEAR); BILIRUBIN NEGATIVE (NEGATIVE); COLOR YELLOW (YELLOW); GLUCOSE NEGATIVE (NEGATIVE); KETONE NEGATIVE (NEGATIVE); NITRITE NEGATIVE (NEGATIVE); PROTEIN TRACE mg/dL (NEGATIVE)
[2018-09-19 01:23] LABS: BACTERIA FEW /hpf (NONE SEEN); GRANULAR CAST RARE /lpf (NONE SEEN); RED CELLS - URINE 0-5 /hpf (0-5)
[2018-09-20 03:00] VITALS: BP 169/66
[2018-09-20 04:45] LABS: BASOPHILS 0.5 % (0-2); EOSINOPHILS 6.2 % (0-7); HEMATOCRIT 28.5 % (36.0-48.0); HEMOGLOBIN 9.4 g/dL (12-16); IMMATURE GRANULOCYTES 1.5 % (0-5); LYMPHOCYTES 15.8 % (15-50); MCH 32.1 pg (26.0-34.0); MCV 97.3 fL (80.0-100.0); MEAN PLATELET VOLUME 10.4 fL (7.4-10.4); MONOCYTES 12.2 % (2-11); NEUTROPHILS 63.8 % (40-80); RBC 2.93 10x6/uL (4.00-5.40); RDW 12.6 % (11.5-14.5); WBC 7.9 10x3/uL (4.8-10.8)
[2018-09-20 05:01] LABS: PLATELET COUNT 260 10x3/uL (130-400)
[2018-09-20 05:08] LABS: CALC OSMOLALITY 287 mosm/kg (275-300); CALCIUM 8.6 mg/dL (8.5-10.1); CARBON DIOXIDE 25.9 mmol/L (21.0-32.0); CHLORIDE - SERUM 108 mmol/L (98-107); CREATININE - SERUM 0.6 mg/dL (0.6-1.3); GLUCOSE 121 mg/dL (74-106); SODIUM 144 mmol/L (136-145); UREA NITROGEN 12 mg/dL (7-18); eGFR NON AFRICAN AMERICAN > 90 mL/min (90-120)
[2018-09-20 05:31] LABS: POTASSIUM - SERUM 2.7 mmol/L (3.5-5.1)
[2018-09-20 07:00] VITALS: BP 157/87
[2018-09-20 11:00] VITALS: BP 167/92
[2018-09-20 16:09] VITALS: Ht 154.9 cm; Wt 50.9 kg
[2018-09-20 16:28] VITALS: BP 187/61
[2018-09-20 22:10] VITALS: BP 188/81
[2018-09-21] VITALS: BP 185/60
[2018-09-21 05:53] VITALS: BP 193/57
[2018-09-21 06:33] LABS: BASOPHILS 0.6 % (0-2); CALC OSMOLALITY 283 mosm/kg (275-300); CALCIUM 7.8 mg/dL (8.5-10.1); CARBON DIOXIDE 24.9 mmol/L (21.0-32.0); CHLORIDE - SERUM 107 mmol/L (98-107); CREATININE - SERUM 0.6 mg/dL (0.6-1.3); EOSINOPHILS 4.9 % (0-7); GLUCOSE 97 mg/dL (74-106); HEMATOCRIT 28.4 % (36.0-48.0); HEMOGLOBIN 9.5 g/dL (12-16); MCH 32.1 pg (26.0-34.0); MCHC 33.5 g/dL (31.0-37.0); MCV 95.9 fL (80.0-100.0); MEAN PLATELET VOLUME 10.3 fL (7.4-10.4); MONOCYTES 13.3 % (2-11); NEUTROPHILS 63.2 % (40-80); PLATELET COUNT 292 10x3/uL (130-400); RBC 2.96 10x6/uL (4.00-5.40); RDW 12.6 % (11.5-14.5); SODIUM 143 mmol/L (136-145); UREA NITROGEN 10 mg/dL (7-18); eGFR NON AFRICAN AMERICAN > 90 mL/min (90-120)
[2018-09-21 06:58] LABS: POTASSIUM - SERUM 2.7 mmol/L (3.5-5.1)
[2018-09-21 07:55] VITALS: BP 156/76
[2018-09-21 12:34] LABS: CALC OSMOLALITY 282 mosm/kg (275-300); CALCIUM 7.6 mg/dL (8.5-10.1); CARBON DIOXIDE 23.5 mmol/L (21.0-32.0); CHLORIDE - SERUM 108 mmol/L (98-107); CREATININE - SERUM 0.7 mg/dL (0.6-1.3); GLUCOSE 109 mg/dL (74-106); SODIUM 142 mmol/L (136-145); UREA NITROGEN 10 mg/dL (7-18); eGFR NON AFRICAN AMERICAN 85 mL/min (90-120)
[2018-09-21 12:38] LABS: POTASSIUM - SERUM 3.2 mmol/L (3.5-5.1)
[2018-09-21 12:52] VITALS: BP 148/56
[2018-09-21 17:47] VITALS: BP 131/41
[2018-09-21 23:34] LABS: MAGNESIUM - SERUM 1.2 mg/dL (1.8-2.4)
[2018-09-21 23:37] LABS: POTASSIUM - SERUM 2.9 mmol/L (3.5-5.1)
[2018-09-22] VITALS: BP 118/64
[2018-09-22 01:05] VITALS: BP 110/35
[2018-09-22 04:00] VITALS: BP 157/43
[2018-09-22 06:53] LABS: BASOPHILS 0.5 % (0-2); EOSINOPHILS 2.9 % (0-7); HEMATOCRIT 26.2 % (36.0-48.0); HEMOGLOBIN 8.8 g/dL (12-16); IMMATURE GRANULOCYTES 1.3 % (0-5); LYMPHOCYTES 11.6 % (15-50); MCH 32.5 pg (26.0-34.0); MCHC 33.6 g/dL (31.0-37.0); MCV 96.7 fL (80.0-100.0); MEAN PLATELET VOLUME 10.2 fL (7.4-10.4); MONOCYTES 11.8 % (2-11); NEUTROPHILS 71.9 % (40-80); PLATELET COUNT 316 10x3/uL (130-400); RBC 2.71 10x6/uL (4.00-5.40); RDW 12.9 % (11.5-14.5); WBC 9.2 10x3/uL (4.8-10.8)
[2018-09-22 07:01] LABS: CARBON DIOXIDE 22.8 mmol/L (21.0-32.0); CHLORIDE - SERUM 108 mmol/L (98-107); CREATININE - SERUM 0.6 mg/dL (0.6-1.3); GLUCOSE 98 mg/dL (74-106); SODIUM 142 mmol/L (136-145); eGFR NON AFRICAN AMERICAN > 90 mL/min (90-120)
[2018-09-22 07:04] LABS: CALC OSMOLALITY 283 mosm/kg (275-300); UREA NITROGEN 14 mg/dL (7-18)
[2018-09-22 07:05] LABS: POTASSIUM - SERUM 2.9 mmol/L (3.5-5.1)
[2018-09-22 08:19] VITALS: BP 154/52
[2018-09-22 11:02] VITALS: BP 148/50
[2018-09-22 12:51] LABS: CALC OSMOLALITY 282 mosm/kg (275-300); CALCIUM 7.6 mg/dL (8.5-10.1); CARBON DIOXIDE 24.3 mmol/L (21.0-32.0); CHLORIDE - SERUM 108 mmol/L (98-107); CREATININE - SERUM 0.6 mg/dL (0.6-1.3); POTASSIUM - SERUM 3.1 mmol/L (3.5-5.1); SODIUM 141 mmol/L (136-145); UREA NITROGEN 11 mg/dL (7-18); eGFR NON AFRICAN AMERICAN > 90 mL/min (90-120)
[2018-09-22 12:52] LABS: GLUCOSE 146 mg/dL (74-106); MAGNESIUM - SERUM 2.7 mg/dL (1.8-2.4)
[2018-09-22 12:56] LABS: INR 1.15 (0.85-1.17); PROTIME 14.2 SECONDS (11.6-15.0)
[2018-09-22 14:23] LABS: BASOPHILS 0.4 % (0-2); HEMATOCRIT 23.8 % (36.0-48.0); IMMATURE GRANULOCYTES 1.2 % (0-5); LYMPHOCYTES 13.5 % (15-50); MCH 32.3 pg (26.0-34.0); MCHC 33.6 g/dL (31.0-37.0); MONOCYTES 12.8 % (2-11); NEUTROPHILS 69.1 % (40-80); PLATELET COUNT 286 10x3/uL (130-400); RBC 2.48 10x6/uL (4.00-5.40); RDW 12.8 % (11.5-14.5); WBC 8.3 10x3/uL (4.8-10.8)
[2018-09-22 19:00] LABS: BASOPHILS 0.2 % (0-2); EOSINOPHILS 1.7 % (0-7); IMMATURE GRANULOCYTES 1.2 % (0-5); LYMPHOCYTES 9.1 % (15-50); MCH 31.7 pg (26.0-34.0); MCHC 33.8 g/dL (31.0-37.0); MONOCYTES 11.6 % (2-11); NEUTROPHILS 76.2 % (40-80); PLATELET COUNT 268 10x3/uL (130-400); RDW 14.1 % (11.5-14.5)
[2018-09-22 19:06] LABS: HEMOGLOBIN 9.8 g/dL (12-16); MCV 93.9 fL (80.0-100.0); RBC 3.09 10x6/uL (4.00-5.40)
[2018-09-23 01:56] LABS: BASOPHILS 0.3 % (0-2); EOSINOPHILS 1.2 % (0-7); HEMATOCRIT 28.5 % (36.0-48.0); HEMOGLOBIN 9.6 g/dL (12-16); IMMATURE GRANULOCYTES 1.2 % (0-5); LYMPHOCYTES 10.1 % (15-50); MCH 31.6 pg (26.0-34.0); MCHC 33.7 g/dL (31.0-37.0); MCV 93.8 fL (80.0-100.0); MEAN PLATELET VOLUME 10.1 fL (7.4-10.4); MONOCYTES 11.2 % (2-11); PLATELET COUNT 269 10x3/uL (130-400); RBC 3.04 10x6/uL (4.00-5.40); RDW 14.9 % (11.5-14.5); WBC 11.4 10x3/uL (4.8-10.8)
[2018-09-23 02:09] LABS: ANION GAP 17.3 mmol/L (8-16); CALCIUM 7.4 mg/dL (8.5-10.1); MAGNESIUM - SERUM 2.3 mg/dL (1.8-2.4); PHOSPHOROUS 3.5 mg/dL (2.5-4.9)
[2018-09-23 02:10] LABS: CREATININE - SERUM 0.8 mg/dL (0.6-1.3); POTASSIUM - SERUM 4.3 mmol/L (3.5-5.1)
[2018-09-23 08:07] VITALS: BP 151/66
[2018-09-23 11:34] VITALS: BP 155/66
[2018-09-23 14:54] LABS: BASOPHILS 0.3 % (0-2); EOSINOPHILS 1.8 % (0-7); HEMATOCRIT 28.5 % (36.0-48.0); HEMOGLOBIN 9.5 g/dL (12-16); IMMATURE GRANULOCYTES 1.3 % (0-5); LYMPHOCYTES 8.8 % (15-50); MCH 31.7 pg (26.0-34.0); MCHC 33.3 g/dL (31.0-37.0); MEAN PLATELET VOLUME 10.3 fL (7.4-10.4); MONOCYTES 11.3 % (2-11); NEUTROPHILS 76.5 % (40-80); PLATELET COUNT 281 10x3/uL (130-400)
[2018-09-23 15:12] VITALS: BP 130/50
[2018-09-23 18:12] LABS: BASOPHILS 0.3 % (0-2); EOSINOPHILS 2.4 % (0-7); HEMATOCRIT 27.6 % (36.0-48.0); HEMOGLOBIN 9.3 g/dL (12-16); MCH 31.5 pg (26.0-34.0); MCHC 33.7 g/dL (31.0-37.0); MCV 93.6 fL (80.0-100.0); MEAN PLATELET VOLUME 10.2 fL (7.4-10.4); MONOCYTES 12.4 % (2-11); NEUTROPHILS 72.9 % (40-80); PLATELET COUNT 294 10x3/uL (130-400); RBC 2.95 10x6/uL (4.00-5.40); RDW 14.7 % (11.5-14.5); WBC 10.7 10x3/uL (4.8-10.8)
[2018-09-23 20:00] VITALS: BP 151/49
[2018-09-24] VITALS: BP 174/51
[2018-09-24 04:00] VITALS: BP 158/51
[2018-09-24 04:21] LABS: BASOPHILS 0.3 % (0-2); EOSINOPHILS 2.1 % (0-7); HEMATOCRIT 27.7 % (36.0-48.0); HEMOGLOBIN 9.2 g/dL (12-16); IMMATURE GRANULOCYTES 0.8 % (0-5); LYMPHOCYTES 6.4 % (15-50); MCH 31.4 pg (26.0-34.0); MCHC 33.2 g/dL (31.0-37.0); MCV 94.5 fL (80.0-100.0); MONOCYTES 9.4 % (2-11); PLATELET COUNT 284 10x3/uL (130-400); RBC 2.93 10x6/uL (4.00-5.40); RDW 14.9 % (11.5-14.5); WBC 11.7 10x3/uL (4.8-10.8)
[2018-09-24 04:39] LABS: ALBUMIN 2.4 g/dL (3.4-5.0); ALKALINE PHOSPHATASE 41 U/L (46-116); ALT (SGPT) 10 U/L (10-68); CALC OSMOLALITY 280 mosm/kg (275-300); CALCIUM 7.7 mg/dL (8.5-10.1); CARBON DIOXIDE 21.4 mmol/L (21.0-32.0); CHLORIDE - SERUM 107 mmol/L (98-107); GLUCOSE 130 mg/dL (74-106); MAGNESIUM - SERUM 1.9 mg/dL (1.8-2.4); POTASSIUM - SERUM 3.7 mmol/L (3.5-5.1); PROTEIN - SERUM 5.9 g/dL (6.4-8.2); SODIUM 140 mmol/L (136-145); UREA NITROGEN 13 mg/dL (7-18)
[2018-09-24 04:41] LABS: CREATININE - SERUM 0.5 mg/dL (0.6-1.3); eGFR NON AFRICAN AMERICAN > 90 mL/min (90-120)
[2018-09-24 09:08] VITALS: BP 163/52
[2018-09-24 14:19] VITALS: BP 164/55
[2018-09-24 18:00] VITALS: BP 159/60
[2018-09-24 20:00] VITALS: BP 183/61
[2018-09-25] VITALS: BP 144/47
[2018-09-25 04:00] VITALS: BP 142/50
[2018-09-25 05:15] LABS: BASOPHILS 0 % (0-2); EOSINOPHILS 0 % (0-7); HEMATOCRIT 26.6 % (36.0-48.0); IMMATURE GRANULOCYTES 0.5 % (0-5); LYMPHOCYTES 4.6 % (15-50); MCH 31.7 pg (26.0-34.0); MCHC 33.8 g/dL (31.0-37.0); MCV 93.7 fL (80.0-100.0); MONOCYTES 2.3 % (2-11); NEUTROPHILS 92.6 % (40-80); PLATELET COUNT 324 10x3/uL (130-400); RBC 2.84 10x6/uL (4.00-5.40); RDW 14.2 % (11.5-14.5); WBC 10.5 10x3/uL (4.8-10.8)
[2018-09-25 05:58] LABS: CALC OSMOLALITY 288 mosm/kg (275-300); CALCIUM 8.1 mg/dL (8.5-10.1); CARBON DIOXIDE 23.4 mmol/L (21.0-32.0); CHLORIDE - SERUM 108 mmol/L (98-107); CREATININE - SERUM 0.5 mg/dL (0.6-1.3); GLUCOSE 153 mg/dL (74-106); POTASSIUM - SERUM 3.4 mmol/L (3.5-5.1); SODIUM 143 mmol/L (136-145); UREA NITROGEN 14 mg/dL (7-18); eGFR NON AFRICAN AMERICAN > 90 mL/min (90-120)
[2018-09-25 08:12] VITALS: BP 144/51
[2018-09-25] MEDS ORDERED: PLAVIX75 MG PO (11:29)
[2018-09-25] MEDS ORDERED: NIFEREX-150 CAP1 CA3 PO (11:29)
[2018-09-25] MEDS ORDERED: CARDIZEM CD180 MG PO (11:29)
[2018-09-25] MEDS ORDERED: ASPIRIN81 MG PO (11:29)
[2018-09-25] MEDS ORDERED: PEPCID AC20 MG PO (12:02)
[2018-09-25 12:16] VITALS: BP 172/51
== END 2018-09-25 16:37 | disposition home health service (06) | DRG 246 ==
LOC: D.ER 14:05 → D.ICU 17:03 → D.EDHOLD 17:03 → D.M2 17:03 → D.ICU 17:46 → D.M2 09-20 15:20
PROVIDERS: Emergency Medicine; Family Medicine; Internal Medicine Gastroenterology; Internal Medicine Interventional Cardiology
PROC: B241ZZ3 Ultrasonography of Multiple Coronary Arteries, Intravascular (ICD-10-PCS; 2018-09-14)
PROC: B2111ZZ Fluoroscopy of Multiple Coronary Arteries using Low Osmolar Contrast (ICD-10-PCS; 2018-09-14)
PROC: B2151ZZ Fluoroscopy of Left Heart using Low Osmolar Contrast (ICD-10-PCS; 2018-09-14)
PROC: 4A023N7 Measurement of Cardiac Sampling and Pressure, Left Heart, Percutaneous Approach (ICD-10-PCS; 2018-09-14)
PROC: 027135Z Dilation of Coronary Artery, Two Arteries with Two Drug-eluting Intraluminal Devices, Percutaneous Approach (ICD-10-PCS; principal; 2018-09-14 12:00)
PROC: 027035Z Dilation of Coronary Artery, One Artery with Two Drug-eluting Intraluminal Devices, Percutaneous Approach (ICD-10-PCS; 2018-09-15)
PROC: 0DJ08ZZ Inspection of Upper Intestinal Tract, Via Natural or Artificial Opening Endoscopic (ICD-10-PCS; 2018-09-22)
DX: I25.119 Atherosclerotic heart disease of native coronary artery with unspecified angina pectoris (principal); K29.61 Other gastritis with bleeding; G93.41 Metabolic encephalopathy; J93.9 Pneumothorax, unspecified; D62 Acute posthemorrhagic anemia; N39.0 Urinary tract infection, site not specified; I48.92 Unspecified atrial flutter; I48.91 Unspecified atrial fibrillation; I10 Essential (primary) hypertension; E83.52 Hypercalcemia; R00.0 Tachycardia, unspecified; E83.42 Hypomagnesemia; R41.0 Disorientation, unspecified; K21.0 Gastro-esophageal reflux disease with esophagitis; K44.9 Diaphragmatic hernia without obstruction or gangrene; K55.20 Angiodysplasia of colon without hemorrhage; K29.80 Duodenitis without bleeding; M17.12 Unilateral primary osteoarthritis, left knee; I67.1 Cerebral aneurysm, nonruptured

== ENCOUNTER 2018-09-30 08:20 | Outpatient (CLI) | payer MEDICARE, BC ==
[~2018-09-30] VITALS: Ht 154.9 cm; Wt 50.0 kg
[~2018-09-30 08:20] MED LIST changes: +ASPIRIN81 MG PO; +CARDIZEM CD180 MG PO; +CELEXA10 MG PO; +CO Q-10100 MG PO; +COZAAR25 MG PO; +NIFEREX-150 CAP1 CA3 PO; +NORMODYNE / TR200 MG PO; +OMEPRAZOLE20 M1 PO; +PEPCID AC20 MG PO; +PLAVIX75 MG PO; +ZESTRIL40 MG PO
[2018-09-30 09:41] VITALS: BP 167/56; Ht 154.9 cm; Wt 50.0 kg
== END 2018-09-30 14:40 | disposition home or self-care (01) ==
LOC: D.OPS 08:20
DX: D64.9 Anemia, unspecified (principal); Z01.812 Encounter for preprocedural laboratory examination

== ENCOUNTER → 2018-10-04 18:28 | Outpatient (CLI) | payer MEDICARE, BC ==
[2018-09-30 09:41] VITALS: BMI 20.8
[2018-10-04 19:21] LABS: BASOPHILS 0.3 % (0-2); EOSINOPHILS 5.4 % (0-7); HEMATOCRIT 29.9 % (36.0-48.0); HEMOGLOBIN 9.7 g/dL (12-16); IMMATURE GRANULOCYTES 1.2 % (0-5); LYMPHOCYTES 14.7 % (15-50); MCH 30.1 pg (26.0-34.0); MCHC 32.4 g/dL (31.0-37.0); MCV 92.9 fL (80.0-100.0); MEAN PLATELET VOLUME 9.8 fL (7.4-10.4); MONOCYTES 12.7 % (2-11); NEUTROPHILS 65.7 % (40-80); PLATELET COUNT 289 10x3/uL (130-400); RBC 3.22 10x6/uL (4.00-5.40); RDW 17.7 % (11.5-14.5); WBC 6.9 10x3/uL (4.8-10.8)
== END | disposition home or self-care (01) ==
LOC: D.LABREF 18:28
PROVIDERS: Family Medicine
DX: I48.91 Unspecified atrial fibrillation (principal)

== ENCOUNTER 2018-10-17 14:38 | Inpatient (IN) | payer MEDICARE, BC ==
[~2018-10-17] VITALS: Ht 154.9 cm; Wt 45.6 kg
[2018-10-17] VITALS (13 sets, daily range): BP systolic 132–171; BP diastolic 43–96
[2018-10-17 15:45] LABS: APPEARANCE CLEAR (CLEAR); BILIRUBIN 1+ (NEGATIVE); COLOR YELLOW (YELLOW); GLUCOSE NEGATIVE (NEGATIVE); KETONE SMALL mg/dL (NEGATIVE); NITRITE NEGATIVE (NEGATIVE); PROTEIN TRACE mg/dL (NEGATIVE)
[2018-10-17 15:46] LABS: BACTERIA FEW /hpf (NONE SEEN); RED CELLS - URINE 0-5 /hpf (0-5); WHITE CELLS - URINE 0-5 /hpf (0-5)
--- NOTE | 2018-10-17 16:00 | NUR ---
URINE COLLECTED AND SENT TO LAB
[2018-10-17 16:08] LABS: BASOPHILS 0.3 % (0-2); EOSINOPHILS 0.3 % (0-7); HEMATOCRIT 21.7 % (36.0-48.0); IMMATURE GRANULOCYTES 0.6 % (0-5); LYMPHOCYTES 10.3 % (15-50); MCH 30.9 pg (26.0-34.0); MCHC 32.7 g/dL (31.0-37.0); MCV 94.3 fL (80.0-100.0); MEAN PLATELET VOLUME 8.3 fL (7.4-10.4); MONOCYTES 5.4 % (2-11); NEUTROPHILS 83.1 % (40-80); PLATELET COUNT 298 10x3/uL (130-400); RDW 16.7 % (11.5-14.5); WBC 6.8 10x3/uL (4.8-10.8)
[2018-10-17 16:14] LABS: HEMOGLOBIN 7.1 g/dL (12-16)
[2018-10-17 16:29] LABS: ALKALINE PHOSPHATASE 53 U/L (46-116); ALT (SGPT) 11 U/L (10-68); AMYLASE - SERUM 53 U/L (25-115); BILIRUBIN - TOTAL 0.35 mg/dL (0.2-1.3); CALC OSMOLALITY 280 mosm/kg (275-300); CALCIUM 8.4 mg/dL (8.5-10.1); CARBON DIOXIDE 25.5 mmol/L (21.0-32.0); CHLORIDE - SERUM 105 mmol/L (98-107); CREATININE - SERUM 0.7 mg/dL (0.6-1.3); GLUCOSE 118 mg/dL (74-106); LIPASE 193 U/L (73-393); PROTEIN - SERUM 6.1 g/dL (6.4-8.2); SODIUM 141 mmol/L (136-145); UREA NITROGEN 10 mg/dL (7-18); eGFR NON AFRICAN AMERICAN 85 mL/min (90-120)
[2018-10-17 16:35] LABS: POTASSIUM - SERUM 2.9 mmol/L (3.5-5.1); TROPONIN-I < 0.017 ng/mL (0.000-0.060)
[2018-10-17 17:23] LABS: % SATURATION 8 % (15-55); IRON 27 ug/dl (35-150); TOTAL IRON BIND CAPACITY 314 ug/dl (260-445); UNSAT IRON BIND CAPACITY 287 ug/dl (150-375)
[2018-10-17 17:35] LABS: MAGNESIUM - SERUM 1.6 mg/dL (1.8-2.4)
--- NOTE | 2018-10-17 19:10 | NUR ---
PT RESTING ON BED, SPOUSE AT BEDSIDE. NO S/S OF ACUTE DISTRESS NOTED. PT UPDATED ON PLAN OF CARE.
--- NOTE | 2018-10-17 20:00 | NUR ---
BLOOD TRANSFUSION STARTED AT 1954. PT TOLERATING WELL.
--- NOTE | 2018-10-17 20:18 | NUR ---
RN CALLED ICU, ROOM DIRTY. ICU REPORTS EVS HAS BEEN NOTIFIED.
--- NOTE | 2018-10-17 20:51 | NUR ---
PT RESTING ON BED, NO S/S OF ACUTE DISTRESS NOTED AT THIS TIME. PT CONTACTED PHARMACY FOR PEPCID DUE TO MED NOT BEING IN PYXIS.
--- NOTE | 2018-10-17 21:30 | NUR ---
PT ARRIVED ON UNIT VIA STRETCHER ACCOMPANIED BY ER STAFF, PRBC INFUSING. PT ABLE TO AMBULATE FROM STRETCHER OUTSIDE THE ROOM TO THE ICU BED. PATIENT WAS CONNECTED TO ICU MONITOR VSS - PT IN NO APPARENT DISTRESS AT BEDSIDE. VALUABLES SENT HOME WITH . WILL CONTINUE TO MONITOR
--- NOTE | 2018-10-17 22:00 | NUR ---
ADMISSIONS ASSESSMENT COMPLETED SEE FLOWSHEET
--- NOTE | 2018-10-17 23:45 | NUR ---
1 UNIT PRBC INITIATED WITH NEW BLOOD TUBING. - PATIENT IN NO APPARENT DISTRESS, VSS WILL CONTINUE TO MONITOR
[2018-10-18] VITALS (24 sets, daily range): BP systolic 125–203; BP diastolic 43–99; Ht 154.9 cm; Wt 45.6 kg
--- NOTE | 2018-10-18 01:57 | NUR ---
PATIENT APPEARS TO BE ASLEEP. EVEN RISE AND FALL OF CHEST NOTED - CBIR. PRBC INFUSING WILL CONTINUE TO MONITOR
[2018-10-18 04:43] LABS: BASOPHILS 0.6 % (0-2); EOSINOPHILS 2.9 % (0-7); HEMATOCRIT 30.3 % (36.0-48.0); HEMOGLOBIN 10.1 g/dL (12-16); IMMATURE GRANULOCYTES 0.6 % (0-5); MCH 30.5 pg (26.0-34.0); MCHC 33.3 g/dL (31.0-37.0); MCV 91.5 fL (80.0-100.0); MEAN PLATELET VOLUME 8.9 fL (7.4-10.4); MONOCYTES 13.5 % (2-11); NEUTROPHILS 53.4 % (40-80); PLATELET COUNT 276 10x3/uL (130-400); RBC 3.31 10x6/uL (4.00-5.40); RDW 16.7 % (11.5-14.5); WBC 5.1 10x3/uL (4.8-10.8)
[2018-10-18 04:46] LABS: CALCIUM 7.7 mg/dL (8.5-10.1); CARBON DIOXIDE 24.7 mmol/L (21.0-32.0); CHLORIDE - SERUM 111 mmol/L (98-107); CREATININE - SERUM 0.6 mg/dL (0.6-1.3); GLUCOSE 82 mg/dL (74-106); SODIUM 146 mmol/L (136-145); eGFR NON AFRICAN AMERICAN > 90 mL/min (90-120)
[2018-10-18 04:58] LABS: CALC OSMOLALITY 287 mosm/kg (275-300); POTASSIUM - SERUM 3.7 mmol/L (3.5-5.1); UREA NITROGEN 7 mg/dL (7-18)
--- NOTE | 2018-10-18 07:20 | NUR ---
REPORT RECEIVED AND CARE ASSUMED. SHIFT ASSESSMENT COMPLETED. AWAKE, ALERT AND ORIENTED X 3. DENIES ANY PAIN AT THIS TIME. IV PATENT. AT BEDSIDE. WILL CONTINUE TO MONITOR.
--- NOTE | 2018-10-18 16:30 | NUR ---
RECEIVED PT CARE AT THIS TIME. VSS, WILL MONITOR CLOSELY.
--- NOTE | 2018-10-18 18:31 | NUR ---
PT BROUGHT WATER PER REQUEST. DENIES ANY OTHER NEEDS. SIDE RAILS UP X2 AND CALL LIGHT WITHIN REACH. VSS, WILL CONTINUE TO MONITOR CLOSELY.
--- NOTE | 2018-10-18 20:43 | NUR ---
PT AT BEDSIDE, UPDATED, B/P ELEVATED, ALL OTHER VSS, PT UP TO BEDSIDE COMMODE, NO BM, YELOW VOID NOTED, PT C/O NO FOOD SINCE LUNCH, BROUGHT PT X1 LARGE CUP BROTH, PT REFUSED AND ASKED FOR CUP OF WATER, PT AAOx4, PT HAS INCREASED ANXIETY R/T HOSPITAL STAY, PT ON ICU MONITORS, AFIB-CONTROLLED, WILL CONTINUE TO ASSESS
--- NOTE | 2018-10-18 22:16 | NUR ---
PT UP TO BEDSIDE COMMODE, YELLOW VOID NOTED, ASSISTED PT BACK TO BED, CALL LIGHT CHECKED, PIV'S FLUSHED WITH NS, BOTH PATENT AT THIS TIME, DRSG'S CDI, MEDS INFUSING PER MAR, SBP ELEVATED, ALL OTHER VSS, CONTROLLED AFIB ON CM, PT DENIES PAIN, AAOx4, AT BEDSIDE, WILL CONTINUE TO ASSESS
[2018-10-18 22:59] LABS: HEMATOCRIT 30.8 % (36.0-48.0); HEMOGLOBIN 10.4 g/dL (12-16)
--- NOTE | 2018-10-18 23:53 | NUR ---
PT UP TO BEDSIDE COMMODE, VOID CLEAR YELLOW ASSISTED BACK TO BED, REPOSITIONED FOR COMFORT,
[2018-10-19 01:00] VITALS: BP 174/66
--- NOTE | 2018-10-19 01:54 | NUR ---
PT UP TO BEDSIDE COMMODE, VSS, PT ABLE TO AMBULATE OUT OF BED WITH MINIMAL ASSIST.NO BM AT THIS TIME, YELLOW VOID NO PAIN NOTED. PT AAOx4
[2018-10-19 04:18] LABS: BASOPHILS 0.7 % (0-2); EOSINOPHILS 4.7 % (0-7); HEMATOCRIT 32.9 % (36.0-48.0); IMMATURE GRANULOCYTES 0.7 % (0-5); LYMPHOCYTES 20.9 % (15-50); MCH 30.6 pg (26.0-34.0); MCHC 33.4 g/dL (31.0-37.0); MCV 91.4 fL (80.0-100.0); MEAN PLATELET VOLUME 8.9 fL (7.4-10.4); MONOCYTES 13.2 % (2-11); NEUTROPHILS 59.8 % (40-80); PLATELET COUNT 295 10x3/uL (130-400); RDW 16.6 % (11.5-14.5); WBC 5.5 10x3/uL (4.8-10.8)
[2018-10-19 04:28] LABS: CALC OSMOLALITY 284 mosm/kg (275-300); CALCIUM 7.8 mg/dL (8.5-10.1); CARBON DIOXIDE 23.5 mmol/L (21.0-32.0); CHLORIDE - SERUM 109 mmol/L (98-107); CREATININE - SERUM 0.6 mg/dL (0.6-1.3); GLUCOSE 101 mg/dL (74-106); POTASSIUM - SERUM 3.6 mmol/L (3.5-5.1); SODIUM 144 mmol/L (136-145); UREA NITROGEN 8 mg/dL (7-18); eGFR NON AFRICAN AMERICAN > 90 mL/min (90-120)
[2018-10-19 07:00] VITALS: BP 160/64
--- NOTE | 2018-10-19 07:41 | NUR ---
REPORT RECIEVED. ASSESSMENT COMPLETE PER FLOW SHEET. VSS. NO NEW CHANGES. PT RESTING COMFORTABLY WILL CONTINUE TO MONITOR
--- NOTE | 2018-10-19 07:54 | NUR ---
ASSISTED UP TO BEDSIDE COMMODE. 100 CC VOID NOTED
[2018-10-19 08:00] VITALS: BP 181/64
--- NOTE | 2018-10-19 09:20 | NUR ---
ASSISTED UP TO BEDSIDE COMMODE. 50 CC VOID NOTED
--- NOTE | 2018-10-19 11:40 | NUR ---
WOKEN FOR LUNCH. PT CONFUSED DISORIENTED DISTRESSED. REORIENTED X4. CALLED PER REQUEST. STATED WOULD BE HERE SHORTLY. PT GIVEN UPDATE. STATED UNDERSTANDING
--- NOTE | 2018-10-19 12:40 | NUR ---
AT BEDSIDE. GIVEN UPDATE. DENIES NEEDS.
--- NOTE | 2018-10-19 13:20 | NUR ---
GIVEN ICE CREAM PER REQUEST. DENIES FURTHER NEEDS. VSS NO NEW CHANGES WILL CONTINUE TO MONITOR
--- NOTE | 2018-10-19 14:20 | NUR ---
PT ASSISTED UP TO BEDSIDE COMMODE. DENIES FURTHER NEEDS WILL CONTINUE TO MONITOR
--- NOTE | 2018-10-19 14:26 | MORECARE ---
CASE MANAGEMENT DISCHARGE SUMMARY PATIENT: RADHA GIBSON KATARINA UNIT: [id number] ADM DATE: 10/17/18 AGE: 83 : 36 SEX: F ROOM/BED: D.2303 AUTHOR: VANESSA CORTES PHYSICIAN: REFERRING PHYSICIAN: HIEU PITTS MD DATE OF SERVICE: 10/19/18 Discharge Plan Patient Name: RADHA GIBSON [facility] [facility] 1935 Planned Disposition: Home Anticipated Discharge Date: Discharge Date: Expected LOS: Initial Reviewer: [email or web address] Initial Review Date: 10/19/2018 Generated: 10/19/18 3:26 pm DCPIA - Discharge Planning Initial Assessment Updated by [email or web address]: Bekah Escalante on 10/19/18 2:18 pm * Is the patient Alert and Oriented? Yes * How many steps to enter\exit or inside your home? * PCP [facility] * Pharmacy [facility] * Preadmission Environment Home with Family * ADLs Independent * Equipment Oxygen * List name and contact numbers for known caregivers / representatives who currently or will assist patient after discharge: Saurabh Gibson spouse [phone] * Verbal permission to speak to the caregivers and representatives has been obtained from the patient. Yes * Community resources currently utilized Home Health * Please name any agencies selected above. [facility] * Additional services required to return to the preadmission environment? No * Can the patient safely return to the preadmission environment? Yes * Has this patient been hospitalized within the prior 30 days at any hospital? Yes Patient Name: RADHA GIBSON Page [id number] at 1426 All edits/amendments must be made on the electronic document DICTATION DATE: 10/19/18 1426 FIBERGLASS BOAT BUILDER: CHRISTEL 10/19/18 1426 RPT#: [id number] DC DATE: STATUS: ADM IN [facility] [address] [place] [address] END OF REPORT
--- NOTE | 2018-10-19 14:45 | MORECARE ---
CASE MANAGEMENT DISCHARGE SUMMARY PATIENT: RADHA GIBSON UNIT: [id number] ADM DATE: 10/17/18 AGE: 83 : 36 SEX: F ROOM/BED: D.2303 AUTHOR: SOPHIA,DOC PHYSICIAN: REFERRING PHYSICIAN: HIEU PITTS MD DATE OF SERVICE: 10/19/18 Discharge Plan Patient Name: RADHA GIBSON Facility: [facility]:[place] : 1935 Planned Disposition: Home Anticipated Discharge Date: Discharge Date: Expected LOS: Initial Reviewer: [email or web address] Initial Review Date: 10/19/2018 Generated: 10/19/18 3:44 pm Comments DCP- Discharge Planning Updated by [id number]: Bekah Escalante on 10/19/18 1:[address] Patient Name: RADHA GIBSON Admission Status: ER Accout number: [id number] Admission Date: 10-17-2018 : 1935 Admission Diagnosis:DVTRCLI OF INTEST, PART UNSP, W/O PERF OR ABSCESS W/O B Attending: HIEU PITTS Current LOS: 2 Anticipated DC Date: Planned Disposition: Home Primary Insurance: MEDICARE A & B Discharge Planning Comments: CM met with patient and spouse at bedside. Patient plans to return home with her . Patient will resume care with [facility]. Patient denies any discharge needs at this time. CM will continue to follow and assist as needed with discharge planning / needs. Energy Broker: Bekah Escalante DCPIA - Discharge Planning Initial Assessment Updated by [email or web address]: Bekah Escalante on 10/19/18 2:18 pm * Is the patient Alert and Oriented? Yes * How many steps to enter\exit or inside your home? * PCP [facility] * Pharmacy [facility] * Preadmission Environment Home with Family * ADLs Independent * Equipment Oxygen * List name and contact numbers for known caregivers / representatives who currently or will assist patient after discharge: Saurabh Gibson spouse [phone] * Verbal permission to speak to the caregivers and representatives has been obtained from the patient. Yes * Community resources currently utilized Home Health * Please name any agencies selected above. [facility] * Additional services required to return to the preadmission environment? No * Can the patient safely return to the preadmission environment? Yes * Has this patient been hospitalized within the prior 30 days at any hospital? Yes Last DP export: 10/19/18 1:26 Patient Name: RADHA GIBSON Page 46870 at 1445 All edits/amendments must be made on the electronic document DICTATION DATE: 10/19/181443 TELECOM SPECIALIST: CHRISTEL 10/19/181443 RPT#: [id number] DC DATE: STATUS: ADM IN [facility] [address] [place] [address] END OF REPORT
[2018-10-19 14:46] LABS: HEMATOCRIT 32.1 % (36.0-48.0); HEMOGLOBIN 10.8 g/dL (12-16)
--- NOTE | 2018-10-19 15:15 | NUR ---
PT GIVEN ICE WATER PER REQUEST. DENIES FURTHER NEEDS. RESTING COMFORTABLY WILL CONTINUE TO MONITOR
--- NOTE | 2018-10-19 16:21 | NUR ---
PT SLEEPING COMFORTABLY NO NEW CHANGES VSS WILL CONTINUE TO MONITOR
[2018-10-19 19:30] VITALS: BP 148/78
--- NOTE | 2018-10-19 19:30 | NUR ---
SHIFT ASSESSMENT COMPLETE, PATIENT GETS UP TO BSC WITH MINIMAL ASSIST, BTB, NO OTHER COMPLAINTS VOICED OR NOTED AT THIS TIME, C/L IN REACH
--- NOTE | 2018-10-19 21:00 | NUR ---
AT BEDSIDE, UPDATE GIVEN, QUESTIONS ANSWERED, CONTINUE POC
--- NOTE | 2018-10-19 22:55 | NUR ---
ORDER RECEIVED FROM DR. VILLANUEVA VIA TELEPHONE FOR CURRENTLY ACTIVE N/V BY THIS PATIENT, MEDICATION OVERRODE, PHARMACY IS NOT AVAILABLE AT THIS TIME, AND GIVEN TO PATIENT. ORDER GIVEN BY DR. VILLANUEVA WAS FOLLOWS: ZOFRAN 4MG IVP Q4H PRN FOR N/V.
--- NOTE | 2018-10-19 23:00 | NUR ---
PATIENT C/O N/V, 50 CC CLEAR SPUTUM LOOKING EMESIS NOTED, M.D. PREVIOUSLY CONTACTED, ZOFRAN ORDER RECEIVED AND GIVEN, WILL CONTINUE TO RE-EVALUATE N/V
[2018-10-20] VITALS: BP 154/69
--- NOTE | 2018-10-20 01:00 | NUR ---
PATIENT ON BEDPAN WITH MINIMAL ASSIST, ONLY MINIMAL AMOUNTS OF URINE NOTED AT A TIME, C/L IN REACH
[2018-10-20 03:00] VITALS: BP 145/65
--- NOTE | 2018-10-20 03:00 | NUR ---
PATIENT UP TO BSC WITH MINIMAL ASSIST, PATIENT HAS BEEN UP SEVERAL TIMES OVER THE COURSE OF THIS NURSE'S SHIFT WITH MINIMAL AMOUNTS OF OUTPUT NOTED EACH TIME, NO OTHER NEEDS VOICED OR NOTED, N/V RESOLVED. PATIENT STATES THAT SHE "PROBABLY JUST CANNOT TAKE ANY MEDICATIONS ON AN EMPTY STOMACH", WILL CONTINUE TO MONITOR
[2018-10-20 04:35] LABS: BASOPHILS 0.4 % (0-2); EOSINOPHILS 3.6 % (0-7); HEMATOCRIT 31.4 % (36.0-48.0); HEMOGLOBIN 10.6 g/dL (12-16); IMMATURE GRANULOCYTES 0.8 % (0-5); LYMPHOCYTES 20.8 % (15-50); MCH 30.4 pg (26.0-34.0); MCHC 33.8 g/dL (31.0-37.0); MEAN PLATELET VOLUME 9.1 fL (7.4-10.4); MONOCYTES 13.2 % (2-11); NEUTROPHILS 61.2 % (40-80); PLATELET COUNT 335 10x3/uL (130-400); RBC 3.49 10x6/uL (4.00-5.40); RDW 16.5 % (11.5-14.5)
[2018-10-20 04:46] LABS: CALC OSMOLALITY 284 mosm/kg (275-300); CALCIUM 7.9 mg/dL (8.5-10.1); CARBON DIOXIDE 19.8 mmol/L (21.0-32.0); CHLORIDE - SERUM 109 mmol/L (98-107); CREATININE - SERUM 0.5 mg/dL (0.6-1.3); GLUCOSE 103 mg/dL (74-106); POTASSIUM - SERUM 3.3 mmol/L (3.5-5.1); SODIUM 144 mmol/L (136-145); UREA NITROGEN 8 mg/dL (7-18); eGFR NON AFRICAN AMERICAN > 90 mL/min (90-120)
--- NOTE | 2018-10-20 05:00 | NUR ---
PATIENT UP TO BSC WITH MINIMAL ASSIST, NO OTHER NEEDS VOICED OR NOTED, C/L IN REACH
[2018-10-20] MEDS ORDERED: CARAFATE1 G PO (07:34)
[2018-10-20] MEDS ORDERED: LEVOFLOXACIN500 MG PO (07:35)
[2018-10-20] MEDS ORDERED: FLAGYL500 MG PO (07:36)
[2018-10-20] MEDS ORDERED: PROTONIX40 MG PO (07:40)
[2018-10-20 08:00] VITALS: BP 155/71
--- NOTE | 2018-10-20 08:00 | NUR ---
PATIENT ASSESSMENT COMPLETE, PATIENT UP TO BSC FOR 100 CC OF CLEAR YELLOW URINE, WITH MINIMAL ASSIST, PRIMARILY MONITORING LINES/WIRES, BTB, NO OTHER NEEDS VOICED OR NOTED AT THIS TIME
--- NOTE | 2018-10-20 10:00 | NUR ---
PT BELONINGS ACCOUNTED FOR. PT LEFT IN A STABLE CONDITION. PT LEFT WITH HER VIA CAR. NO S/SX OF DISTRESS/DISCOMFORT NOTED. CALL LIGELOINA IN REACH. WILL CONT POC.
--- NOTE | 2018-10-20 10:28 | MORECARE ---
CASE MANAGEMENT DISCHARGE SUMMARY PATIENT: RADHA GIBSON UNIT: [id number] ADM DATE: 10/17/18 AGE: 83 : 36 SEX: F ROOM/BED: D.2303 AUTHOR: SOPHIA,DOC PHYSICIAN: REFERRING PHYSICIAN: HIEU PITTS MD DATE OF SERVICE: 10/20/18 Discharge Plan Patient Name: RADHA GIBSON Facility: [facility]:[place] : 1935 Planned Disposition: Home Anticipated Discharge Date: Discharge Date: 10/20/2018 Expected LOS: Initial Reviewer: [email or web address] Initial Review Date: 10/19/2018 Generated: 10/20/18 11:28 am Comments DCP- Discharge Planning Updated by [email or web address]: Beakh Escalante on 10/19/18 1:[address] Patient Name: RADHA GIBSON Admission Status: ER Accout number: [id number] Admission Date: 10-17-2018 : 1935 Admission Diagnosis:DVTRCLI OF INTEST, PART UNSP, W/O PERF OR ABSCESS W/O B Attending: HIEU PITTS Current LOS: 2 Anticipated DC Date: Planned Disposition: Home Primary Insurance: MEDICARE A & B Discharge Planning Comments: CM met with patient and spouse at bedside. Patient plans to return home with her . Patient will resume care with [facility]. Patient denies any discharge needs at this time. CM will continue to follow and assist as needed with discharge planning / needs. Seed Production Field Supervisor: Bekah Escalante DCPIA - Discharge Planning Initial Assessment Updated by [email or web address]: Bekah Escalante on 10/19/18 2:18 pm * Is the patient Alert and Oriented? Yes * How many steps to enter\exit or inside your home? * PCP [facility] * [facility] * Preadmission Environment Home with Family * ADLs Independent * Equipment Oxygen * List name and contact numbers for known caregivers / representatives who currently or will assist patient after discharge: Saurabh Gibson spouse [phone] * Verbal permission to speak to the caregivers and representatives has been obtained from the patient. Yes * Community resources currently utilized Home Health * Please name any agencies selected above. [facility] * Additional services required to return to the preadmission environment? No * Can the patient safely return to the preadmission environment? Yes * Has this patient been hospitalized within the prior 30 days at any hospital? Yes Last DP export: 10/19/18 1:44 Patient Name: RADHA GIBSON Page [id number] at 1028 All edits/amendments must be made on the electronic document DICTATION DATE: 10/20/18 1027 INDUSTRIAL ENGINEERING TECHNOLOGIST: CHRISTEL 10/20/18 1027 RPT#: [id number] DC DATE:10/20/18 STATUS: DIS IN [facility] [address] [place] [address] END OF REPORT
--- NOTE | 2018-10-20 10:52 | MORECARE ---
CASE MANAGEMENT DISCHARGE SUMMARY PATIENT: RADHA GIBSON UNIT: [id number] ADM DATE: 10/17/18 AGE: 83 : 36 SEX: F ROOM/BED: D.2303 AUTHOR: SOPHIA,DOC PHYSICIAN: REFERRING PHYSICIAN: HIEU PITTS MD DATE OF SERVICE: 10/20/18 Discharge Plan Patient Name: RADHA GIBSON Facility: [facility]:[place] : 1935 Planned Disposition: Home Anticipated Discharge Date: Discharge Date: 10/20/2018 Expected LOS: Initial Reviewer: [email or web address] Initial Review Date: 10/19/2018 Generated: 10/20/18 11:52 am Comments DCP- Discharge Planning Updated by [email or web address]: Bekah Escalante on 10/19/18 1:[address] Patient Name: RADHA GIBSON Admission Status: ER Accout number: [id number] Admission Date: 10-17-2018 : 1935 Admission Diagnosis:DVTRCLI OF INTEST, PART UNSP, W/O PERF OR ABSCESS W/O B Attending: HIEU PITTS Current LOS: 2 Anticipated DC Date: Planned Disposition: Home Primary Insurance: MEDICARE A & B Discharge Planning Comments: CM met with patient and spouse at bedside. Patient plans to return home with her . Patient will resume care with [facility]. Patient denies any discharge needs at this time. CM will continue to follow and assist as needed with discharge planning / needs. Thermal Cutting Machine Operator: Bekah Escalante DCPIA - Discharge Planning Initial Assessment Updated by [email or web address]: Bekah Escalante on 10/19/18 2:18 pm * Is the patient Alert and Oriented? Yes * How many steps to enter\exit or inside your home? * PCP [facility] * [facility] * Preadmission Environment Home with Family * ADLs Independent * Equipment Oxygen * List name and contact numbers for known caregivers / representatives who currently or will assist patient after discharge: Saurabh Gibson spouse [phone] * Verbal permission to speak to the caregivers and representatives has been obtained from the patient. Yes * Community resources currently utilized Home Health * Please name any agencies selected above. [facility] * Additional services required to return to the preadmission environment? No * Can the patient safely return to the preadmission environment? Yes * Has this patient been hospitalized within the prior 30 days at any hospital? Yes External Providers External Provider: [facility] Next Contact Date: Service Request Date: Service Type: Resolution: Reviewer: Comments: Coverage Notice Reviewer: [email or web address] Janna Escalante Notice Issued Date-Time: 10/20/2018 8:48 Notice Type: IM Discharge Notice Notice Delivered To: Patient Relationship to Patient: Self Health Worker Name: Delivery Method: HAND - Hand Delivered Nataliia Days: Prior Verbal Notification: Recipient Understood Notice: Yes Recipient Signature: Yes Med Rec Note Co-signed by Attending: Coverage Notice Comment: Last DP export: 10/20/18 9:28 Patient Name: RADHA GIBSON Page [id number] at 1052 All edits/amendments must be made on the electronic document DICTATION DATE: 10/20/18 1052 CONCESSION ATTENDANT: CHRISTEL 10/20/18 1052 RPT#: [id number] DC DATE:10/20/18 STATUS: DIS IN [facility] [address] [place] [address] END OF REPORT
--- NOTE | 2018-10-20 11:00 | MORECARE ---
CASE MANAGEMENT DISCHARGE SUMMARY PATIENT: RADHA GIBSON UNIT: [id number] ADM DATE: 10/17/18 AGE: 83 : 36 SEX: F ROOM/BED: D.2303 AUTHOR: SOPHIA,DOC PHYSICIAN: REFERRING PHYSICIAN: HIEU PITTS MD DATE OF SERVICE: 10/20/18 Discharge Plan Patient Name: RADHA GIBSON Facility: [facility]:[place] : 1935 Planned Disposition: Home Anticipated Discharge Date: Discharge Date: 10/20/2018 Expected LOS: Initial Reviewer: [id number] Initial Review Date: 10/19/2018 Generated: 10/20/18 12:00 pm Comments DCP- Discharge Planning Updated by [id number]: Bekah Escalante on 10/20/18 9:[address] Patient Name: RADHA GIBSON Encounter No: [id number] : 1935 Primary Insurance: MEDICARE A & B Anticipated DC Date: Planned Disposition: Home External Planned Provider: : [facility] to resume care DCP follow-up note: Patient and family in agreement with discharge plan. No changes to plan. CM faxed d/c records to [facility] and spoke with Deisy @ [facility] regarding resuming care. IMM explained and served 10/20/18 @ 08. Case management will follow and assist as needed. Bekah Escalante DCP- Discharge Planning Updated by [email or web address]: Bekah Escalante on 10/19/18 1:[address] Patient Name: RADHA GIBSON Admission Status: ER Accout number: [id number] Admission Date: 10-17-2018 : 1935 Admission Diagnosis:DVTRCLI OF INTEST, PART UNSP, W/O PERF OR ABSCESS W/O B Attending: HIEU PITTS Current LOS: 2 Anticipated DC Date: Planned Disposition: Home Primary Insurance: MEDICARE A & B Discharge Planning Comments: CM met with patient and spouse at bedside. Patient plans to return home with her . Patient will resume care with [facility]. Patient denies any discharge needs at this time. CM will continue to follow and assist as needed with discharge planning / needs. Doors Prefitter: Bekah Escalante DCPIA - Discharge Planning Initial Assessment Updated by [email or web address]: Bekah Escalante on 10/19/18 2:18 pm * Is the patient Alert and Oriented? Yes * How many steps to enter\exit or inside your home? * PCP [facility] * [facility] * Preadmission Environment Home with Family * ADLs Independent * Equipment Oxygen * List name and contact numbers for known caregivers / representatives who currently or will assist patient after discharge: Saurabh Gibson spouse [phone] * Verbal permission to speak to the caregivers and representatives has been obtained from the patient. Yes * Community resources currently utilized Home Health * Please name any agencies selected above. [facility] * Additional services required to return to the preadmission environment? No * Can the patient safely return to the preadmission environment? Yes * Has this patient been hospitalized within the prior 30 days at any hospital? Yes Coverage Notice Reviewer: [id number] - Bekah Escalante Notice Issued Date-Time: 10/20/2018 8:48 Notice Type: IM Discharge Notice Notice Delivered To: Patient Relationship to Patient: Self Corporate Safety Coordinator Name: Delivery Method: HAND - Hand Delivered Nataliia Days: Prior Verbal Notification: Recipient Understood Notice: Yes Recipient Signature: Yes Med Rec Note Co-signed by Attending: Coverage Notice Comment: Last DP export: 10/20/18 9:52 Patient Name: RADHA GIBSON Page [phone] at 1100 All edits/amendments must be made on the electronic document DICTATION DATE: 10/20/18 1059 MANAGER ERP: CHRISTEL 10/20/18 1059 RPT#: [id number] DC DATE:10/20/18 STATUS: DIS IN [facility] [address] [place] [address] END OF REPORT
== END 2018-10-20 10:21 | disposition home health service (06) | DRG 379 ==
LOC: D.ER 14:38 → D.EDHOLD 19:27 → D.ICU 19:27
PROVIDERS: Emergency Medicine; ADMIT Family Medicine
DX: K57.33 Diverticulitis of large intestine without perforation or abscess with bleeding (principal); Z95.5 Presence of coronary angioplasty implant and graft; K21.9 Gastro-esophageal reflux disease without esophagitis; E87.6 Hypokalemia; I25.10 Atherosclerotic heart disease of native coronary artery without angina pectoris; K59.00 Constipation, unspecified; R41.0 Disorientation, unspecified; D50.0 Iron deficiency anemia secondary to blood loss (chronic); K55.20 Angiodysplasia of colon without hemorrhage

== ENCOUNTER 2019-05-07 02:20 | Observation (INO) | payer MEDICARE, BC ==
[~2019-05-07] VITALS: Ht 154.9 cm; Wt 51.5 kg
[2019-05-07] VITALS (7 sets, daily range): BP systolic 123–203; BP diastolic 46–74; Ht 154.9 cm; Wt 51.5 kg
--- NOTE | ~2019-05-07 | HEMODYNAMI ---
PATIENT:RADHA ERICKSON MEDICAL RECORD: [id number] : 37 LOCATION:[facility] D.2115 ADMISSION DATE: 05/07/19 Generatedon:05/07/201910:40 Patient name: RADHA ERICKSON Patient #: [id number] SSN: : 1935 Date of study: 05/07/2019 Page: Of Hemodynamic Procedure Report Patient Data Patient Demographics Procedure consent was obtained First Name: RADHA Gender: Female Last Name: DRE : 1935 [facility] Initial: KATARINA Age: 83 year(s) Patient #: [id number] Race: Additional ID: [id number] Contact details Address: [address] [place] [address] State: [place] City: [place] Zip code: [address] Past Medical History Allergies: No known allergies Admission Admission Data Admission Date: 05/07/2019 Admission Time: 4:02 Room #: D2115 Weight (lbs.): 114.64 Weight (kg.): 52 Lab Results Lab Result Date: 05/07/2019 Lab Result Time: 0:00 Biochemistry Name Units Result Min Max BUN mg/dl 14 --(--*-)-- 7 18 Creatinine mg/dl 0.6 --(*---)-- 0.6 1.3 eGFR ml/min 90 --(*---)-- 90 120 NONAFRICAN CBC Name Units Result Min Max Hematocrit % 36.2 *-(----)-- 42 54 Hemoglobin g/dl 12.3 *-(----)-- 13.5 17.5 Procedure Procedure Types Cath Procedure Diagnostic Procedure [facility] w/Coronaries Sedation Charges Moderate Sedation up to 15 minutes Procedure Description Procedure Date Procedure Date: 05/07/2019 Procedure Start Time: 10:27 Procedure End Time: 10:39 Procedure Staff Name Function Bobby Gasca MD Performing Physician Aicha Potter RT Monitor Estrellita Raygoza RN Nurse Yg Tang RT Scrub Procedure Data Cath Procedure Fluoroscopy Diagnostic fluoroscopy Total fluoroscopy Time: 2 time: 2 min min Diagnostic fluoroscopy Total fluoroscopy dose: 159 dose: 159 mGy mGy Contrast Material Contrast Material Type Amount (ml) Isovue 300 53 Entry Location Entry Primary Successful Side Size Upsize Upsize Entry Closure Succes sful Closure Location (Fr) 1 (Fr) 2 (Fr) Remarks Device Remarks Femoral Right 5 Fr Exoseal artery Estimated blood loss: 5 ml Diagnostic catheters Device Type Used For End Catheter Placement MULTIPACK 3DRC 5Fr Procedure catheter MULTIPACK JL 4.0 5Fr Procedure catheter MULTIPACK Pigtail 5 Fr Procedure catheter Procedure Complications No complications Procedure Medications Medication Administration Route Dosage Oxygen etCO2 Nasal cannula 2 l/min Lidocaine 2% added to field 20 Heparin Flush Bag added to field 2 bags (1000units/500ml NS) 0.9% NaCl I.V. 100 ml/hr Versed I.V. 1 mg Fentanyl I.V. 50 mcg Versed I.V. 1 mg Fentanyl I.V. 50 mcg Versed I.V. 1 mg Versed I.V. 1 mg Hemodynamics Rest HGB: 12.3 (g/dl) Heart Rate: 61 (bpm) Pressure Samples Time Site Value (mmHg) Purpose Heart Use Rate(bpm) 10:34 LV 155/6,10 Snapshot 61 Gradients Valve Time Site Site Mean SEP/DFP Peak To Heart Use 1 2 (mmHg) (sec/min) Peak Rate (mmHg) (bpm) Aortic 10:34 LV AO 62 Snapshots Pre Cath Intra NCS Post Cath Vital Signs Time Heart Resp SPO2 etCO2 NIBP (mmHg) Rhythm Pain Sedation Rate (ipm) (%) (mmHg) Status Level (bpm) 10:13:12 59 18 97 26.2 216/75(136) NSR 0 (11) 10(A) , No pain 10:17:42 53 39 95 41.2 139/53(105) NSR 0 (11) 10(A) , No pain 10:22:00 55 16 95 27 139/53(104) NSR 0 (11) 9(A) , No pain 10:26:16 54 19 96 39.8 119/54(89) NSR 0 (11) 9(A) , No pain 10:30:28 51 19 97 0 134/48(104) NSR 0 (11) 9(A) , No pain 10:34:44 63 17 98 27 130/52(90) NSR 0 (11) 9(A) , No pain 10:39:43 59 15 98 33.7 148/61(131) NSR 0 (11) 10(A) , No pain Medications Time Medication Route Dose Verified Delivered Reason Notes Eff ectiveness by by 10:15:52 Oxygen etCO2 2 Bobby Buffie used for Nasal l/min [facility] hot iron worker cannula 10:15:59 Lidocaine 2% added 20ml Bobby Bobby for local to vial [facility] anesthetic field MD HERRING 10:16:05 Heparin Flush added 2 Bobby Bobby used for Bag to bags [facility] procedure (1000units/500ml field MD HERRING NS) 10:16:13 0.9% NaCl I.V. 100 Bobby Buffie Per ml/hr [place] Raygoza RN physician 10:18:25 Versed I.V. 1 mg Bobby Buffie for Elo Raygoza RN sedation 10:18:32 Fentanyl I.V. 50 Bobby Buffie for mcg Elo Raygoza RN sedation 10:21:48 Versed I.V. 1 mg Bobby Buffie for Elo Raygoza RN sedation 10:21:52 Fentanyl I.V. 50 Bobby Buffie for mcg Elo Raygoza RN sedation 10:27:57 Versed I.V. 1 mg Bobby Buffie for Elo Raygoza RN sedation 10:33:08 Versed I.V. 1 mg Bobby Buffie for [place] Raygoza RN sedation Procedure Log Time Note 9:41:52 Yg Tang RT(R) sent for patient. Start room use. 9:41:54 Time tracking: Call back (After hours or weekends) 9:41:58 Plan of Care:Hemodynamics will remain stable., Cardiac rhythm will remain stable., Comfort level will be maintained., Respiratory function will remain adequate., Patient/ family verbilizes understanding of procedure., Procedure tolerated without complication., Recovers from procedure without complications.. 9:51:56 Patient Weight : 114.64 lbs 9:52:09 Patient allergic to No known allergies 10:04:13 Patient received from Med II to CCL 1 Alert and oriented. Tansferred to table in Supine position. 10:04:16 Warm blankets applied, and william hugger turned on for patient comfort. 10:04:17 Correct patient and procedure confirmed by team. 10:04:18 ECG and BP/O2 sat monitors applied to patient. 10:04:19 Signed procedure consent form obtained from patient. 10:10:53 Vital chart was started 10:14:17 Baseline sample Acquired. 10:14:24 Rhythm: sinus bradycardia 10:14:25 Full Disclosure recording started 10:14:26 Pre-procedure instructions explained to patient. 10:14: Pre-op teaching completed and patient verbalized understanding. 10:14:28 Family in patients room. 10:14:29 Patient NPO since Midnight. 10:14:31 Is patient on blood thinner?Yes 10:14:33 ACC The patient was administered the following blood thiners within the last 24 hours: ACCPlavix 10:14:34 Patient diabetic? No. 10:14:37 Patient not . Patient is over age 55. 10:14:39 Previous problem with sedation/anesthesia? No ? 10:14:39 Snore? Yes 10:14:40 Sleep apnea? No 10:14:41 Deviated septum? No 10:14:42 Opens mouth fully? Yes 10:14:42 Sticks out tongue? Yes 10:14:44 Airway obstruction? No ? 10:14:46 Dentures? No ? 10:14:52 Pre procedure: right dorsailis pedis pulse 3+ Increased pulse; moderate pressure to obliterate 10:14:55 Patient pain scale 0/10 ?. 10:15:04 IV patent on arrival in left antecubital with 0.9% NaCl at O. 10:15:43 Lab Result : Creatinine 0.6 mg/dl 10:15:43 Lab Result : BUN 14 mg/dl 10:15:43 Lab Result : eGFR NONAFRICAN 90 ml/min 10:15:43 Lab Result : Hematocrit 36.2 % 10:15:43 Lab Result : Hemoglobin 12.3 g/dl 10:15:46 Lab results completed and on chart. 10:15:50 Right groin area was prepped with chlora-prep and draped in sterile fashion 10:15:51 Alarms reviewed by R. N. 10:15:51 Sharps counted by scrub and verified by R.N. 10:15:52 Oxygen 2 l/min etCO2 Nasal cannula was administered by Estrellita Raygoza RN; used for procedure; 10:15:56 Use device set Femoral Dx 10:15:57 ACIST Syringe (34589) opened to sterile field. 10:15:58 Bag Decanter (2002S) opened to sterile field. 10:15:58 ACIST Hand Control (24159) opened to sterile field. 10:15:59 Lidocaine 2% 20ml vial added to field was administered by Bobby Gasca MD; for local anesthetic; 10:15:59 ACIST Manifold (25363) opened to sterile field. 10:16:00 Tegaderm 4 x 4 (1626W) opened to sterile field. 10:16:01 Medline Cath Pack ([id number]) opened to sterile field. 10:16:02 DIAGNOSTIC Multipack 5Fr catheter set (AS5390) opened to sterile field. 10:16:04 SHEATH 5FR [place] (AQJ967) opened to sterile field. 10:16:04 EMERALD Guide Wire (236-382) opened to sterile field. 10:16:05 Heparin Flush Bag (1000units/500ml NS) 2 bags added to field was administered by Bobby Gasca MD; used for procedure; 10:16:13 0.9% NaCl 100 ml/hr I.V. was administered by Estrellita Raygoza RN; Per physician; 10:17:45 --------ALL STOP TIME OUT------ 10:17:45 Final Timeout: patient, procedure, and site verified with staff and physician. All members of the team are in agreement. 10:17:47 Right groin site verified by team. 10:17:50 Fire Safety Assessment: A--An alcohol-based skin anteseptic being used preoperatively., C--Open oxygen or nitrous oxide is being used., D--An ESU, laser, or fiber-optic light is being used. 10:17:52 Physical assessment completed. ASA score P 2 - A patient with mild systemic disease as per Bobby Gasca MD. 10:17:56 1) 90+ Normal kidney functon but urine findings or structural abnormalities or genetic trait point to kidney disease. 10:18:00 Maximum allowable contrast does (3.7 X eGFR X 0.75)249 ml. 10:18:03 Sedation plan: IV Moderate Sedation Medication:Versed, Fentanyl 10:18:25 Versed 1 mg I.V. was administered by Estrellita Raygoza RN; for sedation; 10:18:32 Fentanyl 50 mcg I.V. was administered by Estrellita Raygoza RN; for sedation; 10::48 Versed 1 mg I.V. was administered by Estrellita Raygoza RN; for sedation; 10::52 Fentanyl 50 mcg I.V. was administered by Estrellita Raygoza RN; for sedation; 10::48 Zero performed for pressure channel P1 10:27:06 Procedure started. 10:27:09 Local anesthetic to right femoral artery with Lidocaine 2% by Bobby Gasca MD.INITIAL ACCESS ONLY 10:27:57 Versed 1 mg I.V. was administered by Estrellita Raygoza RN; for sedation; 10:28:23 A 5 Fr sheath was inserted into the Right Femoral artery 10:28:39 TUBING High Pressure Extension (IABP) opened to sterile field. 10:29:05 A MULTIPACK 3DRC 5Fr catheter was advanced over the wire and used for Procedure. 10:30:32 RCA angiography performed. 10:30:34 Catheter exchanged over wire. 10:31:20 A MULTIPACK JL 4.0 5Fr catheter was advanced over the wire and used for Procedure. 10:32:28 LCA angiography performed. 10:32:30 Catheter exchanged over wire. 10:33:08 Versed 1 mg I.V. was administered by Estrellita Raygoza RN; for sedation; 10:33:25 A MULTIPACK Pigtail 5 Fr catheter was advanced over the wire and used for Procedure. 10:34:21 LV gram done using NICHOLS 10:34:24 Injector settings: Ml/sec: 10, Volume: 20, 10:34:40 LV hemodynamics recorded. 10:34:46 EF : 55 % 10:34:54 Catheter removed. 10:35:06 EXOSEAL 5Fr (EX500) opened to sterile field. 10:35:46 Sheath removed intact; hemostasis achieved with Exoseal to the Right Femoral artery. 10:35:49 Procedure ended.(Physican Out) 10:38:27 Fluoroscopy time 02.00 minutes. 10:38:31 Flurop Dose total: 159 10:38:31 Fluoroscopy dose: 159 mGy 10:38:35 Contrast amount:Isovue 300 53ml. 10:38:36 Sharps counted by scrub and verified by R.N. 10:38:39 Post-op/insertion site Right Femoral artery dressed using a 4 x 4 and Tegaderm. 10:38:43 Post-procedure physical assessment completed. ASA score P 2 - A patient with mild systemic disease as per Bobby Gasca MD. 10:38:46 Post procedure rhythm: unchanged. 10:38:48 Estimated blood loss: 5 ml 10:38:49 Post procedure instruction explained to patient.Patient verbalizes understanding. 10:38:49 Patient needs reinforcement of post procedure teaching. 10:39:13 Procedure type changed to Cath procedure, Diagnostic procedure, LHC, LHC w/Coronaries, Sedation Charges, Moderate Sedation up to 15 minutes 10:39:33 Procedure and supply charges have been captured, reviewed, submitted and are correct. 10:39:34 Procedure Complication : No complications 10:39:37 Vital chart was stopped 10:39:37 See physician's report for complete and final results. 10:39:41 Report given to PCU. 10:39:43 Patient transfered to PCU with Bed. 10:39:50 Procedure ended. 10:39:50 Full Disclosure recording stopped 10:39:52 End room use (Document Last) Device Usage Item Name Manufacture Quantity Catalog Number Hospital Part Current Minim al Lot# / Charge Number Stock Stock Serial# Code ACIST Acist 1 27928 048100 346162 113198 20 Syringe Medical (45404) Systems Inc Bag Microtek 1 078047 12050 204561 5 Decanter Medical Inc. () ACIST Hand Acist 1 91024 969680 812797 190013 5 Control Medical (33338) Systems Inc ACIST Acist 1 22197 247833 303767 825402 5 Manifold Medical (87148) Systems Inc Tegaderm 4 3M 1 1626W 356316 795633 359043 5 x 4 (1626W) Medline Medline 1 [id number] 492024 61704 451333 5 Cath Pack ([id number]) DIAGNOSTIC Cardinal 1 HW3134 537712 14779 564887 30 Twones 5Fr catheter set (OW4245) SHEATH 5FR Terumo 1 MCY182 514195 420294 896064 5 [place] (IJI690) EMERALD Cardinal 1 502-455 523067 585745 094340 5 Guide Wire [facility] (421-023) TUBING High Merit 1 [id number] 489664 527602 2 5 Pressure Medical Extension (IABP) MULTIPACK Cardinal 1 320359 5 3DRC 5Fr Health catheter MULTIPACK Cardinal 1 656000 5 JL 4.0 5Fr Health catheter MULTIPACK Cardinal 1 674196 5 Pigtail 5 Health Fr catheter EXOSEAL 5Fr Cardinal 1 EX500 082401 329685 249077 10 (EX500) Health Signature Audit [place] Stage Time Signature Unsigned Intra-Procedure 05/07/2019 Aicha Potter 10:40:28 AM RT(R) Signatures Monitor : Aicha Potter Signature : RT Date : Time : [address] [address]
--- NOTE | ~2019-05-07 | OP ---
PATIENT NAME: RADHA ERICKSON MEDICAL RECORD: [id number] :37 LOCATION:D.M2 D.2115 ADMISSION DATE:05/07/19 SURGEON: ABIMAEL FLAHERTY MD DATE OF OPERATION: 05/07/2019 PROCEDURE: Left heart cath, selective coronary angiography, right femoral artery approach. CATHETERS: A 5-[place] Citizen sheath, 5/4 left and right Denisa, 5/4 pig. The procedure was well tolerated. The patient returned to the kirkpatrick. Sheath was removed. ExoSeal device was placed. FINDINGS: Left ventriculography in 30-degree NICHOLS view: Normal wall motion. Normal systolic function. CORONARY ANATOMY: LEFT MAIN: Left main is free of disease. LAD: Area of previous stenting is widely patent. No progression of [place] disease. CIRCUMFLEX: Area of previous stenting is widely patent. No evidence of restenosis. No progression of [place] disease. RIGHT CORONARY ARTERY: Area of previous stenting is widely patent. IMPRESSION: No evidence of restenosis. No progression of [place] disease. LV function remains normal. TRANSINT:[id number] Voice Confirmation ID: [id number] DOCUMENT ID: [id number] ABIMAEL FLAHERTY MD CC: [id number] DICTATION DATE: 05/07/19 1047 ASSEMBLIES AND INSTALLATIONS INSPECTOR: 05/07/19 1325 ADM IN [facility] [address] [place] [id number]
--- NOTE | ~2019-05-07 | CN ---
PATIENT NAME:RADHA ERICKSON MEDICAL RECORD: [id number] : 37 LOCATION:D. D.2115 ADMIT DATE: 05/07/19 ACCOUNT: [id number] CONSULTING PHYSICIAN: ABIMAEL FLAHERTY MD REFERRING PHYSICIAN: HIEU PITTS MD DATE OF CONSULTATION: 05/07/2019 HISTORY OF PRESENT ILLNESS: An 83-year-old female with known history of coronary artery disease, status post intervention in September of 2018. She reports a 2-week history of rapidly progressing angina with chest tightness and pressure radiating to the jaw with exertion. She had onset of rest symptomology yesterday and woken at 2 this a.m. ECG shows nonspecific ST depression inferolaterally, consistent with ongoing diagnostic ECG changes. Cardiac enzymes are negative so far. We are asked to see her concerning her cardiovascular status. PAST MEDICAL HISTORY: Includes; 1. History of coronary artery disease. 2. Hypertension. 3. Hyperlipidemia. 4. Gastroesophageal reflux disease. MEDICATIONS: Include Carafate 1 gram p.o. a.c. and at bedtime, Protonix 40 daily, Celexa 10 daily, pravastatin 80 at bedtime, lisinopril 40 at bedtime, diltiazem 180 daily, Plavix 75 daily, and aspirin 81 daily. SOCIAL HISTORY: . Nonsmoker and nondrinker. She is able to take care of her ADLs, although has had some angina with this recently. REVIEW OF SYSTEMS: The patient reports easy bruising but reports no swollen glands. The patient reports no fever, no night sweats, no significant weight gain, no significant weight loss. No significant exercise tolerance. The patient reports no dry eyes, no irritation, no vision change. Patient reports no difficulty hearing and no ear pain. Patient reports no frequent nose bleeds or nose and sinus problems. Patient reports on arm pain on exertion. No shortness of breath while lying down. No history of heart murmur. Patient reports no cough, no wheezing or coughing up blood. Patient reports no abdominal pain, no vomiting. Normal appetite. No diarrhea and not vomiting blood. No nausea and no constipation. Patient reports no incontinence. No difficulty urinating. No hematuria. No increased frequency. Patient reports no muscle aches. No weakness, no arthralgias, no back pain. No swelling of the extremities. Patient reports no abnormal mole, no jaundice, no rashes. Reports no loss of consciousness. No weakness and no numbness. No seizures, dizziness, or headaches. The patient reports no depression, no sleep disturbance, feeling safe in a relationship and no alcohol abuse. Patient reports on fatigue. Reports no runny nose or sinus pressure. No itching, no hives, and no frequent sneezing. PHYSICAL EXAMINATION: GENERAL: Elderly female, in no acute distress, appears stated age. VITAL SIGNS: Blood pressure 158/57. Pulse 75 and regular. HEENT: Normocephalic and atraumatic. NECK: No bruits are noted. HEART: Regular. II/ systolic ejection murmur. LUNGS: Good air excursion. CONSULT REPORT [id number] RADHA ERICKSON ABDOMEN: Soft and nontender. EXTREMITIES: Pulses 2+. There is no edema. NEUROLOGIC: Grossly intact. DIAGNOSTIC DATA: ECG is abnormal, as described above. IMPRESSION: Acute coronary syndrome with ECG changes. We will plan for angiography and intervention based on above. TRANSINT:[id number] Voice Confirmation ID: [id number] DOCUMENT ID: [id number] ABIMAEL FLAHERTY MD CC: [id number] DICTATION DATE: 05/07/19 0947 PLATE GLASS POLISHER: 05/07/19 1257 DIS IN 05/07/19 [facility] [address] [place] [id number]
[~2019-05-07 02:20] MED LIST changes: +CARAFATE1 G PO; +FLAGYL500 MG PO; +LEVOFLOXACIN500 MG PO; +PROTONIX40 MG PO
[2019-05-07 02:41] LABS: BASOPHILS 1.1 % (0-2); EOSINOPHILS 3.3 % (0-7); HEMATOCRIT 36.2 % (36.0-48.0); HEMOGLOBIN 12.3 g/dL (12-16); IMMATURE GRANULOCYTES 0.4 % (0-5); LYMPHOCYTES 35.4 % (15-50); MCH 29.6 pg (26.0-34.0); MCV 87.2 fL (80.0-100.0); MEAN PLATELET VOLUME 9.1 fL (7.4-10.4); MONOCYTES 9.6 % (2-11); NEUTROPHILS 50.2 % (40-80); RBC 4.15 10x6/uL (4.00-5.40); RDW 13.1 % (11.5-14.5); WBC 5.2 10x3/uL (4.8-10.8)
[2019-05-07 02:44] LABS: PLATELET COUNT 240 10x3/uL (130-400)
[2019-05-07 02:50] LABS: APTT 23.9 SECONDS (22.8-39.4); INR 1.01 (0.85-1.17); PROTIME 12.8 SECONDS (11.6-15.0)
[2019-05-07 03:05] LABS: ALBUMIN 3.5 g/dL (3.4-5.0); ALKALINE PHOSPHATASE 77 U/L (46-116); ALT (SGPT) 11 U/L (10-68); BILIRUBIN - TOTAL 0.29 mg/dL (0.2-1.3); CALC OSMOLALITY 287 mosm/kg (275-300); CARBON DIOXIDE 25.8 mmol/L (21.0-32.0); CHLORIDE - SERUM 107 mmol/L (98-107); CKMB 1.5 U/L (0.0-3.6); CREATINE KINASE 53 UL (21-215); CREATININE - SERUM 0.6 mg/dL (0.6-1.3); GLUCOSE 105 mg/dL (74-106); MAGNESIUM - SERUM 1.8 mg/dL (1.8-2.4); PROTEIN - SERUM 6.9 g/dL (6.4-8.2); SODIUM 144 mmol/L (136-145); TROPONIN-I < 0.017 ng/mL (0.000-0.060); UREA NITROGEN 14 mg/dL (7-18); eGFR NON AFRICAN AMERICAN > 90 mL/min (90-120)
--- NOTE | 2019-05-07 03:15 | NUR ---
RN ASSISTED PT WITH BEDPAN.
--- NOTE | 2019-05-07 04:26 | NUR ---
REPORT CALLED TO INPATIENT NURSE. MANAGEMENT PSYCHOLOGIST ENTERED PT ROOM FOR TRANSPORT TO INPATIENT ROOM, BP ELEVATED, 185/59. EDP NOTIFIED.
--- NOTE | 2019-05-07 04:49 | NUR ---
PT LEFT ED VIA WC AT THIS TIME. BP 159/48.
--- NOTE | 2019-05-07 04:50 | NUR ---
PT ARRIVED VIA W/C FROM ER. NO DISTRESS NOTED.
--- NOTE | 2019-05-07 05:24 | NUR ---
ADMISSION ASSESSMENT, HISTORY AND HOME MED LIST COMPLETED. PT UNSURE OF ALL HER HOME MEDS. STATES WILL BRING LIST IN AM. IV TO [facility] SL. O2 2LNC. SR PER CM HR 75. VSS. ALERT AND ORIENTED TO PERSON, PLACE AND TIME. GAMEZ. SR UP X1, CALL LIGHT WITHIN REACH.
--- NOTE | 2019-05-07 06:55 | NUR ---
PT DENIES ANY DISCOMFORT AT THIS TIME. NEEDS MET;WILL CONTINUE TO MONITOR.
[2019-05-07] MEDS ORDERED: CARTIA XT180 MG PO (07:23)
[2019-05-07] MEDS ORDERED: CARAFATE1 G PO (07:23)
[2019-05-07] MEDS ORDERED: PLAVIX75 MG PO (07:25)
[2019-05-07] MEDS ORDERED: PROTONIX40 MG PO (07:25)
[2019-05-07] MEDS ORDERED: PRAVACHOL80 MG PO (07:27)
[2019-05-07 08:13] LABS: CKMB 1.3 U/L (0.0-3.6); CREATINE KINASE 49 UL (21-215); TROPONIN-I < 0.017 ng/mL (0.000-0.060)
[2019-05-07 08:46] LABS: BASOPHILS 0.5 % (0-2); EOSINOPHILS 0.9 % (0-7); HEMATOCRIT 35.8 % (36.0-48.0); HEMOGLOBIN 12.1 g/dL (12-16); IMMATURE GRANULOCYTES 0.4 % (0-5); LYMPHOCYTES 16.1 % (15-50); MCH 29.7 pg (26.0-34.0); MCHC 33.8 g/dL (31.0-37.0); MEAN PLATELET VOLUME 9.6 fL (7.4-10.4); MONOCYTES 6.6 % (2-11); NEUTROPHILS 75.5 % (40-80); PLATELET COUNT 251 10x3/uL (130-400); RBC 4.07 10x6/uL (4.00-5.40); RDW 13.1 % (11.5-14.5)
[2019-05-07 08:51] LABS: WBC 9.4 10x3/uL (4.8-10.8)
--- NOTE | 2019-05-07 09:54 | NUR ---
CONSENTS SIGNED, PRE-OPS GIVEN. TO TELESALES AGENT BY BED. WILL CONT. PLAN OF CARE.
--- NOTE | 2019-05-07 10:59 | NUR ---
BACK FROM CEMENT BOAT AND BARGE LOADER. VS WNL. RIGHT GROIN STABLE WITHOUT BLEEDING OR HEMATOMA NOTED. WILL MONITOR.
--- NOTE | 2019-05-07 12:40 | NUR ---
BED REST UP. GROIN STABLE.
[2019-05-07] MEDS ORDERED: LEVSIN/ANASP0.125 MG PO (14:20)
--- NOTE | 2019-05-07 15:16 | NUR ---
IV AND TELEMETRY DCD. DC PLANS GIVEN. UNDERSTANDING VOICED. ESCORTED TO CAR BY W/C.
--- NOTE | 2019-05-08 08:36 | MORECARE ---
CASE MANAGEMENT DISCHARGE SUMMARY PATIENT: RADHA ERICKSON KATARINA UNIT: [id number] ADM DATE: 05/07/19 AGE: 83 : 36 SEX: F ROOM/BED: D.8980 AUTHOR: VANESSA CORTES PHYSICIAN: REFERRING PHYSICIAN: HIEU PITTS MD DATE OF SERVICE: 05/08/19 Discharge Plan Patient Name: RADHA ERICKSON [facility] [facility] 1935 Planned Disposition: Home Anticipated Discharge Date: 05/07/19 Discharge Date: 05/07/2019 Expected LOS: 1 Initial Reviewer: [email or web address] Initial Review Date: 05/08/2019 Generated: 05/08/19 9:36 am Patient Name: RADHA ERICKSON Page [id number] at 0836 All edits/amendments must be made on the electronic document DICTATION DATE: 05/08/19834 RECRUITER SPECIALIST: CHRISTEL 05/08/19 0835 RPT#: [id number] DC DATE:05/07/19 STATUS: DIS IN [facility] [address] [place] [address] END OF REPORT
== END 2019-05-07 15:17 | disposition home or self-care (01) ==
LOC: D.ER 02:20 → D.M2 04:02 → OBSVTIME 04:02 → D.M2 15:17
PROVIDERS: Emergency Medicine; Internal Medicine Interventional Cardiology; ADMIT Family Medicine; ATTEND Family Medicine
DX: I24.9 Acute ischemic heart disease, unspecified (principal); I10 Essential (primary) hypertension; E78.5 Hyperlipidemia, unspecified; K21.9 Gastro-esophageal reflux disease without esophagitis; I25.10 Atherosclerotic heart disease of native coronary artery without angina pectoris

== ENCOUNTER 2019-07-14 18:50 | Inpatient (IN) | payer MEDICARE, BC ==
[~2019-07-14] VITALS: Ht 154.9 cm; Wt 46.1 kg
--- NOTE | ~2019-07-14 | HEMODYNAMI ---
PATIENT:RADHA ERICKSON MEDICAL RECORD: [id number] : 37 LOCATION:D. ADMISSION DATE: 07/14/19 Generatedon:07/14/201919:52 Patient name: RADHA ERICKSON Patient #: [id number] SSN: : 1935 Date of study: 07/14/2019 Page: Of Hemodynamic Procedure Report Patient Data Patient Demographics Procedure consent was obtained First Name: RADHA Gender: Female Last Name: DRE : 1935 [facility] Initial: KATARINA Age: 84 year(s) Patient #: [id number] Race: Additional ID: [id number] Contact details [address]: [address] [place] [address] State: [place] City: [place] Zip code: [address] Past Medical History Allergies: No known allergies Admission Admission Data Admission Date: 07/14/2019 Admission Time: 18:50 Arrival Date: 07/14/2019 Arrival Time: 0:00 Admit Source: Emergency Insurance Payor: Medicare department HIC #: [id number] Height (in.): 60.63 BSA: 1.5 (m2) Height (cm.): 154 BMI: 22.35 (kg/m2) Weight (lbs.): 116.85 Weight (kg.): 53 Procedure Procedure Types Cath Procedure Diagnostic Procedure C [facility] w/Coronaries Procedure Description Procedure Date Procedure Date: 07/14/2019 Procedure Start Time: 19:36 Procedure End Time: 19:48 Procedure Staff Name Function Bobby Gasca MD Performing Physician Aicha Potter RT Monitor Yg Tang RT Scrub Cherie Camacho RT Scrub Lorena Catalan RN Nurse Procedure Data Cath Procedure Fluoroscopy Diagnostic fluoroscopy Total fluoroscopy Time: 2.8 time: 2.8 min min Diagnostic fluoroscopy Total fluoroscopy dose: 284 dose: 284 mGy mGy Contrast Material Contrast Material Type Amount (ml) Isovue 300 74 Entry Location Entry Primary Successful Side Size Upsize Upsize Entry Closure Succes sful Closure Location (Fr) 1 (Fr) 2 (Fr) Remarks Device Remarks Femoral Right 6 Fr Exoseal artery Short Estimated blood loss: 5 ml Diagnostic catheters Device Type Used For End Catheter Placement MULTIPACK JL 4.0 5Fr Procedure catheter MULTIPACK 3DRC 5Fr Procedure catheter MULTIPACK Pigtail 5 Fr Procedure catheter Procedure Complications No complications Procedure Medications Medication Administration Route Dosage 0.9% NaCl I.V. 100 ml/hr Oxygen etCO2 Nasal cannula 2 l/min Lidocaine 2% added to field 20 Heparin Flush Bag added to field 2 bags (1000units/500ml NS) Versed I.V. 2 mg Fentanyl I.V. 100 mcg Digoxin I.V. 0.5 mg Lopressor I.V. 5 mg Hemodynamics Rest BSA: 1.5 (m2) O2 Consumption: Estimated: 165.05 (ml/min) O2 Consumption indexed: Estimated:110.03 (ml/min/m) Heart Rate: 125 (bpm) Pressure Samples Time Site Value (mmHg) Purpose Heart Use Rate(bpm) 19:41 AO 193/87(129) Snapshot 102 19:44 LV 156/11,10 Snapshot 105 19:44 AO 183/75(120) Pullback 83 Gradients Valve Time Site Site 2 Mean SEP/DFP Peak To Heart Use 1 (mmHg) (sec/min) Peak Rate (mmHg) (bpm) Aortic 19:44 LV AO 9 19 83 183/75(120) Calculations Valve P-P Mean Valve Index Valve Source Name Gradient Area Flow (cm2) Aortic 9 9 Snapshots Pre Cath Intra NCS Post Cath Vital Signs Time Heart Resp SPO2 etCO2 NIBP (mmHg) Rhythm Pain Sedation Rate (ipm) (%) (mmHg) Status Level (bpm) 19:34:16 136 13 98 23.3 Measuring A-Fib 0 (11) 10(A) , No pain 19:35:38 120 18 98 27.8 Time A-Fib 0 (11) 10(A) Exceeded , No pain 19:37:18 111 22 98 22.5 149/107(137) A-Fib 0 (11) 9(A) , No pain 19:42:17 95 14 97 12 Measuring A-Fib 0 (11) 9(A) , No pain 19:42:32 104 17 97 11.2 193/97(151) A-Fib 0 (11) 9(A) , No pain 19:46:56 75 13 98 26 198/92(139) A-Fib 0 (11) 10(A) , No pain Medications Time Medication Route Dose Verified Delivered Reason Notes Eff ectiveness by by 19:35:20 0.9% NaCl I.V. 100 Bobby Lorena used for ml/hr [place] Hossein procedure MD RAMIREZ 19:35:30 Oxygen etCO2 2 Bobby Lorena used for Nasal l/min Elo Hossein procedure cannula MD RAMIREZ 19:35:35 Lidocaine 2% added 20ml Bobby Serranoory for local to vial [facility] anesthetic field MD HERRING 19:35:39 Heparin Flush added 2 Bobby Bobby used for Bag to bags [facility] procedure (1000units/500ml field MD HERRING NS) 19:35:53 Versed I.V. 2 mg Bobby Lorena for [facility] Catalan sedation MD RAMIREZ 19:35:59 Fentanyl I.V. 100 Bobby Lorena for mcg [facility] Catalan sedation MD RAMIREZ 19:39:24 Digoxin I.V. 0.5 Bobby Cespedesyla Per mg [facility] dhaliwal MD, RN 19:44:01 Lopressor I.V. 5 mg [address] Per [facility] dhaliwal MD, RN Procedure Log Time Note 19:00:46 Lorena Catalan RN sent for patient. Start room use. 19:09:29 Signed procedure consent form obtained from patient. 19:09:35 Procedure Status Urgent Heart Cath (IP). 19:09:39 Time tracking: Call back (After hours or weekends) 19:09:42 Plan of Care:Hemodynamics will remain stable., Cardiac rhythm will remain stable., Comfort level will be maintained., Respiratory function will remain adequate., Patient/ family verbilizes understanding of procedure., Procedure tolerated without complication., Recovers from procedure without complications.. 19:09:55 H&P Date Dictated: 07/14/2019 ER History on chart.. 19:11:05 Patient Weight : 116.85 lbs 19:11:17 Patient Height : 60.63 inches 19:11:53 Arrival Date: 07/14/2019 12:00:00 AM 19:11:56 Admit Source: Emergency department 19:11:58 Insurance Payor : Medicare 19:18:26 Patient allergic to No known allergies 19:26:11 Patient received from ED to CCL 1 Alert and oriented. Tansferred to table in Supine position. 19:26:12 Warm blankets applied, and william hugger turned on for patient comfort. 19:26:13 Correct patient and procedure confirmed by team. 19:26:13 ECG and BP/O2 sat monitors applied to patient. 19:31:17 Rhythm: atrial fibrillation 19:31:19 Full Disclosure recording started 19:31:21 Baseline sample Acquired. 19:31:22 Pre-procedure instructions explained to patient. 19:31:23 Pre-op teaching completed and patient verbalized understanding. 19:31:26 Family in waiting room. 19:31:29 Patient NPO since Dinner. 19:31:30 Is the patient allergic to Iodine/contrast media? No. 19:31:32 Is patient on blood thinner?Yes 19:31:35 ACC The patient was administered the following blood thiners within the last 24 hours: ACCPlavix 19:31:39 Patient diabetic? No. 19:31:42 Previous problem with sedation/anesthesia? No ? 19:31:43 Snore? Yes 19:31:44 Sleep apnea? No 19:31:45 Deviated septum? No 19:31:46 Opens mouth fully? Yes 19:31:47 Sticks out tongue? Yes 19:31:48 Airway obstruction? No ? 19:31:50 Dentures? No ? 19:32:10 Pre procedure: right dorsailis pedis pulse 1+ Palpable, but thready & weak; easily obliterated 19:32:11 Patient pain scale 0/10 ?. 19:32:17 IV patent on arrival in left forearm with 0.9% NaCl at O. 19:32:18 Lab results completed and on chart. 19:32:21 Right groin area was prepped with chlora-prep and draped in sterile fashion 19:32:22 Alarms reviewed by R. N. 19:32:23 Sharps counted by scrub and verified by R.N. 19:32:27 Vital chart was started 19:32:30 --------ALL STOP TIME OUT------ 19:32:31 Final Timeout: patient, procedure, and site verified with staff and physician. All members of the team are in agreement. 19:32:33 Right groin site verified by team. 19:32:36 Fire Safety Assessment: A--An alcohol-based skin anteseptic being used preoperatively., C--Open oxygen or nitrous oxide is being used., D--An ESU, laser, or fiber-optic light is being used. 19:32:39 Physical assessment completed. ASA score P 2 - A patient with mild systemic disease as per Bobby Gasca MD. 19:32:44 Sedation plan: IV Moderate Sedation Medication:Versed, Fentanyl 19:35:20 0.9% NaCl 100 ml/hr I.V. was administered by Lorena Catalan RN; used for procedure; 19:35:30 Oxygen 2 l/min etCO2 Nasal cannula was administered by Lorena Catalan RN; used for procedure; 19:35:35 Lidocaine 2% 20ml vial added to field was administered by Bobby Gasca MD; for local anesthetic; 19:35:39 Heparin Flush Bag (1000units/500ml NS) 2 bags added to field was administered by Bobby Gasca MD; used for procedure; 19:35:53 Versed 2 mg I.V. was administered by Lorena Catalan RN; for sedation; 19:35:59 Fentanyl 100 mcg I.V. was administered by Lorena Catalan RN; for sedation; 19:36:29 Procedure started. 19:36:34 Local anesthetic to right femoral artery with Lidocaine 2% by Bobby Gasca MD.INITIAL ACCESS ONLY 19:38:31 A 6 Fr Short sheath was inserted into the Right Femoral artery 19:38:44 Use device set Femoral Dx 19:38:45 ACIST Syringe (06974) opened to sterile field. 19:38:45 Bag Decanter () opened to sterile field. 19:38:46 ACIST Hand Control (28324) opened to sterile field. 19:38:46 ACIST Manifold (88715) opened to sterile field. 19:38:47 Tegaderm 4 x 4 (1626W) opened to sterile field. 19:38:48 Medline Cath Pack ([id number]) opened to sterile field. 19:38:49 DIAGNOSTIC Multipack 5Fr catheter set (DT7451) opened to sterile field. 19:38:51 EMERALD Guide Wire (175-434) opened to sterile field. 19:38:56 SHEATH 6FR Gibson (YHY268) opened to sterile field. 19:39:02 A MULTIPACK JL 4.0 5Fr catheter was advanced over the wire and used for Procedure. 19:39:24 Digoxin 0.5 mg I.V. was administered by Lorena Catalan RN; Per physician; 19:40:00 LCA angiography performed. 19:40:09 Catheter exchanged over wire. 19:40:28 A MULTIPACK 3DRC 5Fr catheter was advanced over the wire and used for Procedure. 19:41:48 RCA angiography performed. 19:42:06 Catheter exchanged over wire. 19:42:18 A MULTIPACK Pigtail 5 Fr catheter was advanced over the wire and used for Procedure. 19:42:33 LV gram done using NICHOLS 19:42:35 Injector settings: Ml/sec: 10, Volume: 20, 19:44:01 Lopressor 5 mg I.V. was administered by Lorena Catalan RN; Per physician; 19:45:05 EXOSEAL 6Fr (EX600) opened to sterile field. 19:45:51 LV hemodynamics recorded. 19:45:55 EF : 55 % 19:45:56 Catheter removed. 19:46:05 Sheath removed intact; hemostasis achieved with Exoseal to the Right Femoral artery. 19:46:07 Procedure ended.(Physican Out) 19:46:31 Fluoroscopy time 02.80 minutes. 19:46:39 Fluoroscopy dose: 284 mGy 19:46:39 Flurop Dose total: 284 19:46:45 Dose Area Product 468715 mGy/cm. 19:46:48 Contrast amount:Isovue 300 74ml. 19:46:51 Maximum allowable dose exceeded? No. 19:46:52 Sharps counted by scrub and verified by R.N. 19:46:55 Post-op/insertion site Right Femoral artery dressed using a 4 x 4 and Tegaderm. 19:47:00 Post-procedure physical assessment completed. ASA score P 2 - A patient with mild systemic disease as per Bobby Gasca MD. 19:47:05 Post procedure rhythm: atrial fibrillation 19:47:07 Estimated blood loss: 5 ml 19:47:08 Post procedure instruction explained to patient.Patient verbalizes understanding. 19:47:09 Patient needs reinforcement of post procedure teaching. 19:47:36 Procedure type changed to Cath procedure, Diagnostic procedure, LHC, LHC w/Coronaries 19:47:49 Procedure and supply charges have been captured, reviewed, submitted and are correct. 19:47:52 Procedure Complication : No complications 19:47:54 Vital chart was stopped 19:47:54 See physician's report for complete and final results. 19:48:03 Report given to PCU. 19:48:06 Patient transfered to PCU with Stretcher. 19:48:08 Procedure ended. 19:48:08 Full Disclosure recording stopped 19:48:14 End room use (Document Last) Device Usage Item Name Manufacture Quantity Catalog Hospital Part Current Minimal L ot# / Number Charge Number Stock Stock Serial# Code ACIST Acist 1 93442 283984 341699 598267 20 Syringe Medical (37387) Systems Inc Bag Microtek 1 2001S 067567 66334 176735 5 Decanter Medical Inc. () ACIST Hand Acist 1 28526 923540 726126 351498 5 Control Medical (11753) Systems Inc ACIST Acist 1 68130 899859 990204 134387 5 Manifold Medical (36823) Systems Inc Tegaderm 4 3M 1 1626W 822164 246046 732197 5 x 4 (1626W) Medline Medline 1 [id number] 930712 17305 441886 5 Cath Pack ([id number]) DIAGNOSTIC Cardinal 1 IA3292 592855 22923 389266 30 Multipack Health 5Fr catheter set (GI8230) EMERALD Cardinal 1 502-455 551636 639489 046245 5 Guide Wire Health (502-455) SHEATH 6FR Terumo 1 QVS598 634447 559355 204330 40 Gibson (PVP544) MULTIPACK Cardinal 1 033442 5 JL 4.0 5Fr Health catheter MULTIPACK Cardinal 1 062176 5 3DRC 5Fr Health catheter MULTIPACK Cardinal 1 430001 5 Pigtail 5 Health Fr catheter EXOSEAL 6Fr Cardinal 1 EX600 574624 187797 137499 10 (EX600) Health Signature Audit [place] Stage Time Signature Unsigned Intra-Procedure 07/14/2019 Aicha Potter 7:52:25 PM RT(R) Signatures Performing Physician : Signature : Bobby Gasca MD Date : Time : Monitor : Aicha Potter Signature : RT Date : Time : Nurse : Lorena Catalan RN Signature : Date : Time : [address] [place] [address]
--- NOTE | ~2019-07-14 | HEMODYNAMI ---
PATIENT:RADHA ERICKSON MEDICAL RECORD: [id number] : 37 LOCATION:[facility] D.2118 ADMISSION DATE: 07/15/19 Generatedon:07/16/201911:39 Patient name: RADHA ERICKSON Patient #: [id number] SSN: : 1935 Date of study: 07/16/2019 Page: Of Hemodynamic Procedure Report Patient Data Patient Demographics Procedure consent was obtained First Name: RADHA Gender: Female Last Name: DRE : 1935 [facility] Initial: KATARINA Age: 84 year(s) Patient #: [id number] Race: Additional ID: [id number] Contact details Address: [address] [place] [address] State: [place] City: [place] Zip code: [address] Past Medical History Allergies: No known allergies Admission Admission Data Admission Date: 07/15/2019 Admission Time: 15:52 Arrival Date: 07/14/2019 Arrival Time: 0:00 Admit Source: Emergency Insurance Payor: Medicare department [facility] #: [id number] Room #: D.2118 Height (in.): 60.63 BSA: 1.48 (m2) Height (cm.): 154 BMI: 21.93 (kg/m2) Weight (lbs.): 114.64 Weight (kg.): 52 Lab Results Lab Result Date: 07/16/2019 Lab Result Time: 0:00 Biochemistry Name Units Result Min Max BUN mg/dl 15 --(--*-)-- 7 18 Creatinine mg/dl 0.8 --(-*--)-- 0.6 1.3 CBC Name Units Result Min Max Hematocrit % 38.4 *-(----)-- 42 54 Hemoglobin g/dl 13.5 --(*---)-- 13.5 17.5 Procedure Procedure Types Cath Procedure Diagnostic Procedure PPM/ICD PPM Dual Implant Sedation Charges Moderate Sedation up to 30 minutes Procedure Description Procedure Date Procedure Date: 07/16/2019 Procedure Start Time: 10:48 Procedure Staff Name Function Bobby Gasca MD Performing Physician Saurabh Tineo MD Assisting physician Aicha Potter RT Monitor Yg Tang RT Scrub Cherie Camacho RT Scrub Lorena Catalan RN Nurse Procedure Data Cath Procedure Fluoroscopy Diagnostic fluoroscopy Total fluoroscopy Time: 3.3 time: 3.3 min min Diagnostic fluoroscopy Total fluoroscopy dose: dose: 322.17 mGy 322.17 mGy Contrast Material Contrast Material Type Amount (ml) Isovue 300 0 Procedure Complications No complications Procedure Medications Medication Administration Route Dosage 0.9% NaCl I.V. 100 ml/hr Oxygen etCO2 Nasal cannula 2 l/min Ancef (1Gm/50ml NS) I.V.P.B 1 g Ancef Irrigation Topical 1 g (1gm/500ml NS) Lidocaine 1% with added to field 20 ml Epi Bupivacaine 0.5% added to field 10 ml Versed I.V. 2 mg Fentanyl I.V. 50 mcg Versed I.V. 2 mg Fentanyl I.V. 50 mcg Fentanyl I.V. 50 mcg Fentanyl I.V. 50 mcg Ativan I.V. 0.5 mg Hemodynamics Rest BSA: 1.48 (m2) HGB: 13.5 (g/dl) O2 Consumption: Estimated: 131.28 (ml/min) O2 Co nsumption indexed: Estimated:88.7 (ml/min/m) Heart Rate: 69 (bpm) Snapshots Pre Cath Intra NCS Post Cath Vital Signs Time Heart Resp SPO2 etCO2 NIBP (mmHg) Rhythm Pain Sedation Rate (ipm) (%) (mmHg) Status Level (bpm) 10:38:00 75 15 98 11 Measuring NSR 0 (11) 10(A) , No pain 10:38:06 71 18 98 14 202/88(146) NSR 0 (11) 10(A) , No pain 10:42:39 75 17 97 20.3 194/72(135) NSR 0 (11) 10(A) , No pain 10:47:38 55 14 100 0 Measuring SB 0 (11) 10(A) , No pain 10:48:23 50 18 100 18.8 196/71(155) SB 0 (11) 10(A) , No pain 10:52:55 56 12 100 9.7 192/64(129) SB 0 (11) 10(A) , No pain 10:57:26 55 10 98 29.3 181/66(133) SB 0 (11) 10(A) , No pain 11:01:48 60 12 97 19.5 151/80(106) NSR 0 (11) 10(A) , No pain 11:06:08 61 16 98 21 164/55(96) NSR 0 (11) 10(A) , No pain 11:11:07 60 11 97 1.5 Measuring NSR 0 (11) 10(A) , No pain 11:11:35 96 10 98 4.5 184/76(112) Paced 0 (11) 10(A) , No pain 11:16:02 63 16 97 1.5 190/70(134) Paced 0 (11) 10(A) , No pain 11:20:30 62 11 97 2.2 174/66(133) Paced 0 (11) 10(A) , No pain 11:24:52 71 12 100 3 167/69(132) Paced 0 (11) 10(A) , No pain 11:29:14 57 13 100 3 170/64(122) Paced 0 (11) 10(A) , No pain 11:33:32 38 10 99 0 177/78(138) Paced 0 (11) 10(A) , No pain Medications Time Medication Route Dose Verified Delivered Reason Notes Effectiv eness by by 10:37:42 0.9% NaCl I.V. 100 Bobby Lorena used for ml/hr Elo Hossein procedure MD RAMIREZ 10:37:48 Oxygen etCO2 2 Bobby Lorena used for Nasal l/min Elo Hossein procedure cannula MD RAMIREZ 10:37:58 Ancef I.V.P.B 1 g Bobby Cespedesyla used for (1Gm/50ml Elo Hossein procedure NS) MD RAMIREZ 10:38:10 Ancef Topical 1 g Saurabh Wiley used for Irrigation Breving Breving procedure (1gm/500ml MD HERRING NS) 10:38:22 Lidocaine added 20 ml Saurabh Wiley for local 1% with Epi to Breving Breving anesthetic field MD HERRING 10:38:35 Bupivacaine added 10 ml Saurabh Wiley for local 0.5% to Breving Breving anesthetic field MD HERRING 10:45:34 Versed I.V. 2 mg Bobby Lorena for Elo Hossein sedation MD RN 10:45:39 Fentanyl I.V. 50 [address] mcg [facility] Catalan sedation RN 10:49:57 Versed I.V. 2 mg [address] [facility] mathis MD RN 10:50:01 Fentanyl I.V. 50 Bobby Cespedesyla for mcg [facility] Catalan sedation RN 10:54:22 Fentanyl I.V. 50 Bobby Cespedesyla for mcg [facility] mathis MD RN 10:59:09 Fentanyl I.V. 50 Bobby Cespedesyla for mcg [facility] Catalan sedation RN 11:13:30 Ativan I.V. 0.5 Bobby Carrillo for mg [facility] Catalan anxiety colloid mill operator Log Time Note 10:12:49 Yg Tang RT(R) sent for patient. Start room use. 10:12:51 Procedure Status Urgent Heart Cath (IP). 10:12:54 Time tracking: Call back (After hours or weekends) 10:12:57 Plan of Care:Hemodynamics will remain stable., Cardiac rhythm will remain stable., Comfort level will be maintained., Respiratory function will remain adequate., Patient/ family verbilizes understanding of procedure., Procedure tolerated without complication., Recovers from procedure without complications.. 10:12:58 Patient Height : 60.63 inches 10:12:58 Patient Weight : 114.64 lbs 10:24:19 Lab Result : Hemoglobin 13.5 g/dl 10:24:19 Lab Result : Hematocrit 38.4 % 10:24:19 Lab Result : BUN 15 mg/dl 10:24:19 Lab Result : Creatinine 0.8 mg/dl 10:26:20 Patient received from Med II to CCL 1 Alert and oriented. Tansferred to table in Supine position. 10:26:22 Warm blankets applied, and william hugger turned on for patient comfort. 10:26:23 Correct patient and procedure confirmed by team. 10:26:23 ECG and BP/O2 sat monitors applied to patient. 10:26:25 Signed procedure consent form obtained from patient. 10:35:13 Pre-procedure instructions explained to patient. 10:35:13 Pre-op teaching completed and patient verbalized understanding. 10:35:14 Family in patients room. 10:35:15 Patient NPO since Midnight. 10:35:30 Patient allergic to No known allergies 10:36:10 Vital chart was started 10:36:17 Rhythm: atrial fibrillation 10:36:18 Full Disclosure recording started 10:36:22 Is patient on blood thinner?Yes 10:36:24 ACC The patient was administered the following blood thiners within the last 24 hours: ACCPlavix 10:36:25 Patient diabetic? No. 10:36:28 Previous problem with sedation/anesthesia? No ? 10:36:29 Snore? Yes 10:36:30 Sleep apnea? No 10:36:31 Deviated septum? No 10:36:31 Opens mouth fully? Yes 10:36:33 Sticks out tongue? Yes 10:36:35 Airway obstruction? No ? 10:36:37 Dentures? No ? 10:36:40 Patient pain scale 0/10 ?. 10:36:44 IV patent on arrival in left forearm with 0.9% NaCl at [facility]. 10:36:47 Lab results completed and on chart. 10:36:59 Left chest area was prepped with chlora-prep and draped in sterile fashion 10:37:00 Alarms reviewed by R. N. 10:37:00 Sharps counted by scrub and verified by R.N. 10:37:16 Medtronic herbicide service sales representative GARRETT BURCH present for procedure. 10:37:42 0.9% NaCl 100 ml/hr I.V. was administered by Lorena Catalan RN; used for procedure; 10:37:48 Oxygen 2 l/min etCO2 Nasal cannula was administered by Lorena Catalan RN; used for procedure; 10:37:58 Ancef (1Gm/50ml NS) 1 g I.V.P.B was administered by Lorena Catalan RN; used for procedure; 10:38:10 Ancef Irrigation (1gm/500ml NS) 1 g Topical was administered by Saurabh Tineo MD; used for procedure; 10:38:22 Lidocaine 1% with Epi 20 ml added to field was administered by Saurabh Tineo MD; for local anesthetic; 10:38:35 Bupivacaine 0.5% 10 ml added to field was administered by Saurabh Tineo MD; for local anesthetic; 10:40:23 Medtronic 4574-45 PPM Lead opened to sterile field. 10:40:[address] Generator [id number] opened to sterile field. 10:40:28 Use device set RUTHIE PPM 10:40:30 2-0 Ticron Multipack ([id number]) opened to sterile field. 10:40:30 3-0 Vicryl Single Pack [id number] opened to sterile field. 10:40:31 5-0 Monocryl PS2 [id number] opened to sterile field. 10:40:31 Cautery Tip Cross Tie Turner opened to sterile field. 10:40:32 Cautery Pushbutton Pencil opened to sterile field. 10:40:32 Mepilex Dressing (854404) opened to sterile field. 10:40:42 Moondo 4074-52 PPM Lead opened to sterile field. 10:41:19 Pre sharps counted by scrub and verified by RN: Sutures: 15; Sponges: 5; Stick needles: 2; Skin needles: 2; Blade: 1; Cautery: 1 10:41:21 Grounding pad site Left thigh. 10:41:22 Grounding pad site free from injury. 10:41:31 Baseline sample Acquired. 10:43:58 --------ALL STOP TIME OUT------ 10:43:58 Final Timeout: patient, procedure, and site verified with staff and physician. All members of the team are in agreement. 10:44:01 Left chest site verified by team. 10:44:04 Fire Safety Assessment: A--An alcohol-based skin anteseptic being used preoperatively., B--The operative or invasive procedure is being performed above the xiphoid process or in the oropharynx., C--Open oxygen or nitrous oxide is being used. 10:44:08 Physical assessment completed. ASA score P 2 - A patient with mild systemic disease as per Bobby Gasca MD. 10:44:10 2) 60-89 Mildly reduced kidney function, and other findings (as for stage 1) point to kidney disease. 10:44:13 Maximum allowable contrast dose (3.7 X eGFR X 0.75)200 ml. 10:44:18 Sedation plan: IV Moderate Sedation Medication:Versed, Fentanyl 10:45:34 Versed 2 mg I.V. was administered by Lorena Catalan RN; for sedation; 10:45:39 Fentanyl 50 mcg I.V. was administered by Lorena Catalan RN; for sedation; 10:48:05 Lidocaine 1% w/epi and Bupivacaine 0.5% was administered to left subclavicular area by Saurabh Tineo MD . 10:49:21 Incision made to left subclavicular area. 10:49:57 Versed 2 mg I.V. was administered by Lorena Catalan RN; for sedation; 10:50:01 Fentanyl 50 mcg I.V. was administered by Lorena Catalan RN; for sedation; 10:54:22 Fentanyl 50 mcg I.V. was administered by Lorena Catalan RN; for sedation; 10:59:09 Fentanyl 50 mcg I.V. was administered by Lorena Catalan RN; for sedation; 11:03:01 Left subclavian vein accessed with 9Fr Peel Away Sheath. 11:03:06 Ventricular lead inserted and advanced. 11:06:00 Ventricular lead positioned. 11:07:39 Ventricular lead tested. 11:08:40 Ventricular lead attachment was completed with 2-0 ticron. 11:12:02 Left subclavian vein accessed with 7Fr Peel Away Sheath. 11:12:44 Atrial lead inserted and advanced. 11:13:18 Atrial lead positioned. 11:13:30 Ativan 0.5 mg I.V. was administered by Lorena Catalan RN; for anxiety; 11:14:12 Atrial lead tested. 11:15:46 Atrial lead attachment was completed with 2-0 ticron. 11:17:29 PPM Dual was inserted subcutaneously to right chest. 11:17:32 PPM Dual was attached to lead(s) and inserted into pocket. 11:17:45 Generator was sutured in place with 2-0 ticron. 11:18:58 Device pocket was irrigated with Ancef. 11:20:51 Subcutaneous closure was completed with 3-0 vicryl plus. 11:22:41 Skin closure was completed with 5-0 monocryl. 11:28:33 Parameters-- Generator: Mode: AAIR/DDDR. Lower Rate: 70bpm. Upper Rate: 130bpm. 11:29:10 Lt Chest incision was dressed with Mepilex dressing. 11:29:13 Procedure ended.(Physican Out) 11:29:43 Parameters--Ventricular P/R Wave: 24.5mV. Current: .4mA; Threshold: .5V; Impedence: 1453OHMS. 11:33:14 Parameters--Atrial P/R Wave: 4.1mV. Current: 1.1mA; Threshold: .5V; Impedence: 536OHMS. 11:34:28 Fluoroscopy time 03.30 minutes. 11:34:45 Flurop Dose total: 322.17 11:34:45 Fluoroscopy dose: 322.17 mGy 11:34:50 Contrast amount:Isovue 300 0ml. 11:34:52 Sharps counted by scrub and verified by R.N. 11:34:57 Post-procedure physical assessment completed. ASA score P 2 - A patient with mild systemic disease as per Bobby Gasca MD. 11:34:59 Post procedure rhythm: paced 11:35:01 Post procedure instruction explained to patient.Patient verbalizes understanding. 11:35:02 Patient needs reinforcement of post procedure teaching. 11:35:31 Procedure type changed to Cath procedure, Diagnostic procedure, PPM/ICD, PPM Dual Implant, Sedation Charges, Moderate Sedation up to 30 minutes 11:35:46 Procedure and supply charges have been captured, reviewed, submitted and are correct. 11:35:48 Procedure Complication : No complications 11:35:49 Vital chart was stopped 11:35:50 See physician's report for complete and final results. 11:35:57 Report given to Med II. 11:35:59 Patient transfered to Med II with Bed. 11:36:07 End room use (Document Last) Device Usage Item Name Manufacture Quantity Catalog Hospital Part Current Minima l Lot# / Serial# Number Charge Number Stock Stock Code 2-0 Ticron Ethicon 7 [id number] 35257 [id number] 5 Multipack ([id number]) 3-0 Vicryl Ethicon 1 [id number] 631629 783760 5 Single Pack [id number] 5-0 Monocryl Ethicon 1 Y495G 440678 483707 234660 5 PS2 Y495G Cautery Tip Microtek 1 [id number] 434879 034348 926643 5 Cross Tie Turner [employer] Cautery Microtek 1 [id number] 580035 59778 955840 5 Pushbutton [employer] Pencil Mepilex Cardinal 1 606020 554051 805041 157512 5 [facility] ([id number]) Medtronic Medtronic 1 4074-52 505191 713517 589778 5 [id number] 4074-52 PPM EXP:12/29/2020 Lead [id number] Medtronic Medtronic 1 4574-45 814170 498211 012485 5 [id number] 4574-45 PPM EXP: Lead [id number] Medtronic Medtronic 1 W1DR01 725780 6117924 443909 [id number] EXP:11/28/2020 Generator [id number] Signature Audit [place] Stage Time Signature Unsigned Intra-Procedure 07/16/2019 Aicha Potter 11:39:26 AM RT(R) Signatures Performing Physician : Signature : Bobby Gasca MD Date : Time : Monitor : Aicha Potter Signature : RT Date : Time : Nurse : Lorena Catalan RN Signature : Date : Time : [address] [place] [address]
[~2019-07-14 18:50] MED LIST changes: +CARTIA XT180 MG PO; +LEVSIN/ANASP0.125 MG PO
[2019-07-14 19:23] LABS: BASOPHILS 0.3 % (0-2); EOSINOPHILS 0.4 % (0-7); HEMATOCRIT 38.4 % (36.0-48.0); HEMOGLOBIN 13.5 g/dL (12-16); IMMATURE GRANULOCYTES 0.3 % (0-5); LYMPHOCYTES 15.2 % (15-50); MCH 29.7 pg (26.0-34.0); MCHC 35.2 g/dL (31.0-37.0); MCV 84.4 fL (80.0-100.0); MEAN PLATELET VOLUME 9.6 fL (7.4-10.4); MONOCYTES 9.3 % (2-11); NEUTROPHILS 74.5 % (40-80); PLATELET COUNT 249 10x3/uL (130-400); RBC 4.55 10x6/uL (4.00-5.40); RDW 12.9 % (11.5-14.5); WBC 11.8 10x3/uL (4.8-10.8)
--- NOTE | 2019-07-14 19:26 | NUR ---
PT TO RN STAFF AT THIS TIME.
[2019-07-14 19:28] VITALS: BP 144/79
[2019-07-14 19:32] LABS: APTT 22.9 SECONDS (22.8-39.4); INR 0.93 (0.85-1.17)
[2019-07-14 19:47] LABS: ALKALINE PHOSPHATASE 77 U/L (46-116); ALT (SGPT) 13 U/L (10-68); BILIRUBIN - TOTAL 0.81 mg/dL (0.2-1.3); CALC OSMOLALITY 281 mosm/kg (275-300); CARBON DIOXIDE 25.7 mmol/L (21.0-32.0); CHLORIDE - SERUM 103 mmol/L (98-107); CKMB 1.6 U/L (0.0-3.6); CREATINE KINASE 32 UL (21-215); CREATININE - SERUM 0.8 mg/dL (0.6-1.3); GLUCOSE 139 mg/dL (74-106); MAGNESIUM - SERUM 1.1 mg/dL (1.8-2.4); POTASSIUM - SERUM 3.2 mmol/L (3.5-5.1); PROTEIN - SERUM 7.7 g/dL (6.4-8.2); SODIUM 140 mmol/L (136-145); UREA NITROGEN 15 mg/dL (7-18); eGFR NON AFRICAN AMERICAN 72 mL/min (90-120)
[2019-07-14 20:02] LABS: CALCIUM 14.9 mg/dL (8.5-10.1); TROPONIN-I < 0.017 ng/mL (0.000-0.060)
--- NOTE | 2019-07-14 20:09 | NUR ---
REC'D CRITICAL CALCIUM OF 14.9 FROM LAB. PT HAD BEEN TRANSFERRED TO 2117. CONTACTED [facility] AND SPOKE W/MARY. RESULTS RELAYED.
[2019-07-14 22:09] VITALS: BP 128/75; Ht 154.9 cm; Wt 46.1 kg
[2019-07-15] VITALS: BP 148/65
--- NOTE | 2019-07-15 02:14 | NUR ---
PATIENT HEART RATE FLUCATATE BETWEEN THE LOW 40s HIGH 30s. PATIENT ON CORDARONE. PATIENT CAME TO FLOOR POST CATH. PAGED DR. ODONNELL. ORDERS GIVEN TO STOP CORDARONE.
[2019-07-15 04:00] VITALS: BP 130/43
[2019-07-15 08:53] VITALS: BP 145/41
--- NOTE | 2019-07-15 09:44 | NUR ---
TELEMETRY SB 40. IV RESTARTED TO LEFT FA WITH 22 GAUGE CATH X 1 STICK AND FLUSHED NS. LINE IS PATENT.
[2019-07-15 13:54] VITALS: BP 130/43
--- NOTE | 2019-07-15 15:21 | NUR ---
CONSENTS SIGNED FOR PACEMAKER. WILL CONT. PLAN OF CARE.
[2019-07-15 18:25] VITALS: BP 125/56
--- NOTE | 2019-07-15 19:33 | NUR ---
BEDSIDE SHIFT REPORT COMPLETED AND PT RESTING IN BED WITH NO DISTRESS. CALL LIGHT IN REACH. CPOC. BED ALARM IN PLACE.
--- NOTE | 2019-07-15 21:28 | NUR ---
RESTING IN BED. INSTRUCTED ON NPO AFTER MIDNIGHT FOR AM PACEMAKER PLACEMENT PER DR FLAHERTY.
[2019-07-16] VITALS: BP 143/49
[2019-07-16 04:00] VITALS: BP 140/69
--- NOTE | 2019-07-16 05:34 | NUR ---
NO CHANGE FROM INITIAL SHIFT ASSESSMENT. PT HAS BEEN NPO SINCE MIDNIGHT. CALL LIGHT IN REACH. CPOC.
--- NOTE | 2019-07-16 07:15 | NUR ---
PT RESTING IN BED, SHIFT ASSESSMENT PERFORMED. DENIES ANY NEEDS AT THIS TIME. WILL CONT TO FOLLOW POC
[2019-07-16 07:30] VITALS: BP 183/59
--- NOTE | 2019-07-16 10:15 | NUR ---
PT LEFT FLOOR FOR PACEMAKER PLACEMENT
[2019-07-16 11:30] VITALS: BP 179/65
--- NOTE | 2019-07-16 12:00 | NUR ---
PT RETURNED TO FLOOR FROM PACEMAKER PLACEMENT. VSS AND WNL. WILL CONT TO FOLLOW POC
--- NOTE | 2019-07-16 12:20 | NUR ---
PT O2 90% ON RA. APPLIED 2L NC. PT O2 NOW 96% WILL CONT TO FOLLOW POC
--- NOTE | 2019-07-16 12:45 | NUR ---
PT RESTING IN BED, VSS AND WNL. DENIES ANY NEEDS AT THIS TIME, FAMILY AT BEDSIDE, WILL CONT TO FOLLOW POC
[2019-07-16 15:30] VITALS: BP 153/58
--- NOTE | 2019-07-16 16:00 | NUR ---
PT COMPLAINING OF PAIN TO LEFT SHOULDER. PAGED , NEW ORDER RECIEVED FOR NORCO 10/325MG Q4H PRN. WENT BACK INTO PT ROOM TO ALERT HER OF NEW ORDER AND PT STATES SHE DOES NOT WANT ANYTHING FOR PAIN YET. EDUCATION PROVIDED TO PT ABOUT KEEPING PAIN DOWN INSTEAD OF CHASING IT AND PT VERBALIZES UNDERSTANDING
--- NOTE | 2019-07-16 18:26 | NUR ---
PT RESTING IN BED, SLING TO LEFT ARM. DENIES ANY NEEDS AT THIS TIME. WILL CONT TO FOLLOW POC
[2019-07-16 20:00] VITALS: BP 193/70
--- NOTE | 2019-07-16 20:18 | NUR ---
INITIAL ROUNDS AND ASSESSMENT COMPLETED. PT RESTING IN BED. LEFT CHEST WALL INCISION WITH DRESSING C/D/I. 69/PACED PER TELEMETRY. NONLABORED RESPIRATIONS ON ROOM AIR. LEFT ARM SLING IN PLACE. SALINE LOCK TO LFA.
--- NOTE | 2019-07-16 21:23 | NUR ---
PT RESTING WITH NO REPORTS OF DISCOMFORT. DECLINES ANY OFFERED PAIN MED FOR HER LEFT CHEST WALL INCISION. TELLS NURSE SHE IS OKAY. CPOC.
--- NOTE | 2019-07-16 22:37 | NUR ---
PT NOW BEGINNING TO FEEL DISCOMFORT IN INCISIONAL AREA. ASSISTED TO REPOSITION AND PROVIDED WITH PAIN PILL AT THIS TIME.
[2019-07-17] VITALS: BP 180/60
[2019-07-17 04:30] VITALS: BP 167/53
--- NOTE | 2019-07-17 06:40 | NUR ---
NO CHANGE FROM INITIAL SHIFT ASSESSMENT. DRESSING TO LEFT CHEST WALL PACEMAKER SITE C/D/I. LEFT ARM IN SLING. CPOC. CALL LIGHT IN REACH.
--- NOTE | 2019-07-17 07:30 | NUR ---
ALERT AND ORIENTED. TELEMERTY SHOWS PACED RHYTHM. SL TO LEFT FA. DRSG TO LEFT CHEST. SLING TO LEFT ARM. DENIES ANY NEEDS. WILL MONITOR.
[2019-07-17 08:30] VITALS: BP 164/68
--- NOTE | 2019-07-17 08:43 | OP ---
PATIENT NAME: RADHA ERICKSON MEDICAL RECORD: [id number] :37 LOCATION:D.M2 D.2118 ADMISSION DATE:07/15/19 SURGEON: ABIMAEL FLAHERTY MD DATE OF OPERATION: 07/16/2019 PROCEDURE: Lead portion of permanent pacemaker placement. INDICATION: Sick sinus syndrome with PAF and pauses. SURGEON: Saurabh Tineo MD DESCRIPTION OF PROCEDURE: After left subclavian was cannulated via modified Seldinger technique via Dr. Tineo, first, under fluoroscopic guidance. I placed the RV lead in the RV apex without difficulty. After adequate R waves and thresholds were obtained, we then placed the right atrial lead. After adequate R waves and thresholds were obtained, we then under fluoroscopic guidance, placed the right atrial lead and right atrial appendage without difficulty. After P waves and thresholds were obtained, the leads were attached to appropriate poles of the generator and the pocket was closed via Dr. Tineo. IMPRESSION: Successful lead portion of permanent pacemaker placement on Radha Erickson. ESTIMATED BLOOD LOSS: Minimal. DISPOSITION: To floor, stable. TRANSINT:[id number] Voice Confirmation ID: [id number] DOCUMENT ID: [id number] ABIMAEL FLAHERTY MD at 0843 CC: [id number] DICTATION DATE: 07/16/19 1128 INDUSTRIAL TRUCK MECHANIC: 07/16/19 1821 ADM IN [facility] [address] [place] [address]
--- NOTE | 2019-07-17 08:43 | OP ---
PATIENT NAME: RADHA ERICKSON MEDICAL RECORD: [id number] :37 LOCATION:D.M2 D.2118 ADMISSION DATE:07/15/19 SURGEON: ABIMAEL FLAHERTY MD DATE OF OPERATION: 07/14/2019 PROCEDURE: Left heart catheterization, selective coronary angiography, right femoral artery approach. CATHETERS: A 5-Ukrainian sheath, 5/4 left and right Denisa, 5/4 pig. The procedure was well tolerated. The patient returned kirkpatrick. Sheath was removed. ExoSeal device was placed. FINDINGS: Left ventriculography in 30-degree NICHOLS view. Normal wall motion and normal systolic function. CORONARY ANATOMY: LEFT MAIN: Left main is free of disease. LAD: Free of disease. The area of previous stenting is widely patent. CIRCUMFLEX: Free disease. The area of previous stenting is widely patent. RIGHT CORONARY ARTERY: Dominant artery, gives rise to PDA, previous stenting is widely patent. No progression of peters[place] disease. IMPRESSION: No evidence of restenosis, no evidence of thrombosis. Normal left ventricular function. TRANSINT:[id number] Voice Confirmation ID: [id number] DOCUMENT ID: [id number] ABIMAEL FLAHERTY MD at 0843 CC: [id number] DICTATION DATE: 07/14/192005 NEWS LIBRARY DIRECTOR: 07/15/19 0039 ADM IN [facility] [address] [place] [address]
--- NOTE | 2019-07-17 08:43 | CN ---
PATIENT NAME:RADHA ERICKSON MEDICAL RECORD: [id number] : 37 LOCATION:D. D.2118 ADMIT DATE: 07/15/19 ACCOUNT: [id number] CONSULTING PHYSICIAN: ABIMAEL FLAHERTY MD REFERRING PHYSICIAN: ABIMAEL FLAHERTY MD DATE OF CONSULTATION: 07/14/2019 HISTORY OF PRESENT ILLNESS: An 84-year-old lady with a known history of coronary artery disease, status post intervention via Dr. Parker, began having chest pain, noted to have EKG changes, was brought to the experimental machining lab manager. Her experimental machining lab manager was activated. She from photocopy looks to have ST depression inferolaterally perhaps posterior changes. We brought her to experimental machining lab manager on an urgent basis. PAST MEDICAL HISTORY: Includes: 1. History of hypertension. 2. Hyperlipidemia. 3. Coronary artery disease as described above. 4. Gastroesophageal reflux disease. ALLERGIES: None known. MEDICATIONS: Carafate 1 g before meals and at bedtime, Protonix 40 every day, Celexa 10 every day, Pravachol 80 every day, lisinopril 40 every day, diltiazem 180 every day, and Plavix 75 every day. SOCIAL HISTORY: Nonsmoker, social drinker, does try to still walk on somewhat regular basis. REVIEW OF SYSTEMS: The patient reports easy bruising but reports no swollen glands. The patient reports no fever, no night sweats, no significant weight gain, no significant weight loss. No significant exercise tolerance. The patient reports no dry eyes, no irritation, no vision change. Patient reports no difficulty hearing and no ear pain. Patient reports no frequent nose bleeds or nose and sinus problems. Patient reports on arm pain on exertion. No shortness of breath while lying down. No history of heart murmur. Patient reports no cough, no wheezing or coughing up blood. Patient reports no abdominal pain, no vomiting. Normal appetite. No diarrhea and not vomiting blood. No nausea and no constipation. Patient reports no incontinence. No difficulty urinating. No hematuria. No increased frequency. Patient reports no muscle aches. No weakness, no arthralgias, no back pain. No swelling of the extremities. Patient reports no abnormal mole, no jaundice, no rashes. Reports no loss of consciousness. No weakness and no numbness. No seizures, dizziness, or headaches. The patient reports no depression, no sleep disturbance, feeling safe in a relationship and no alcohol abuse. Patient reports on fatigue. Reports no runny nose or sinus pressure. No itching, no hives, and no frequent sneezing. PHYSICAL EXAMINATION: GENERAL: Elderly female in moderate distress. VITAL SIGNS: 187/93, pulse 126. HEENT: Normocephalic, atraumatic. NECK: No bruits are noted. HEART: Regular, frequent extrasystoles II/ systolic ejection murmur. LUNGS: Good air excursion. CONSULT REPORT [id number] RADHA ERICKSON ABDOMEN: Soft, nontender. EXTREMITIES: Pulses 2+ with no edema. IMPRESSION: Acute coronary syndrome. We will plan for angiography, intervention based on above. TRANSINT:[id number] Voice Confirmation ID: [id number] DOCUMENT ID: [id number] ABIMAEL FLAHERTY MD at 0843 CC: [id number] DICTATION DATE: 07/14/191915 TANNING DRUM OPERATOR: 07/15/19 0000 ADM IN [facility] [address] [place] [address]
--- NOTE | 2019-07-17 10:47 | NUR ---
PT WAS TO BE DISCHARGED BUT BECAME DIZZY WHEN SITTING UP. ORTHO V/S DONE WITH NO GREAT CHANGES WHEN LYING OR STANDING. PTS GAVE HER HOME B/P MEDS TO HER. DR FLAHERTY NOTIFIED OF PTS SYMPTOMS AND DR. PITTS CONSULTED.
--- NOTE | 2019-07-17 12:04 | NUR ---
I have reviewed this patient and I concur with the Shift Assessment completed by the Licensed Practical Nurse today this shift.
[2019-07-17 13:04] VITALS: BP 213/70
--- NOTE | 2019-07-17 14:13 | NUR ---
PT DCD. IV REMOVED WITH TIPP INTACT. TO PRIVATE CAR PER WHEELCHAIR.
--- NOTE | 2019-07-17 15:53 | MORECARE ---
CASE MANAGEMENT DISCHARGE SUMMARY PATIENT: RADHA ERICKSON KATARINA UNIT: [id number] ADM DATE: 07/15/19 AGE: 84 : 36 SEX: F ROOM/BED: D.7424 AUTHOR: VANESSA CORTES PHYSICIAN: REFERRING PHYSICIAN: ABIMAEL FLAHERTY MD DATE OF SERVICE: 07/17/19 Discharge Plan Patient Name: RADHA ERICKSON [facility] [facility] 1935 Planned Disposition: Home Anticipated Discharge Date: 07/17/19 Discharge Date: 07/17/2019 Expected LOS: 2 Initial Reviewer: [email or web address] Initial Review Date: 07/17/2019 Generated: 07/17/19 4:52 pm Patient Name: RADHA ERICKSON Page 09579 at 1553 All edits/amendments must be made on the electronic document DICTATION DATE: 07/17/191551 REFINERY OPERATOR HELPER CRACKING UNIT: CHRISTEL 07/17/19 155 RPT#: [id number] DC DATE:07/17/19 STATUS: DIS IN [facility] [address] [place] [id number] END OF REPORT
--- NOTE | 2019-07-17 16:02 | MORECARE ---
CASE MANAGEMENT DISCHARGE SUMMARY PATIENT: RADHA ERICKSON KATARINA UNIT: [id number] ADM DATE: 07/15/19 AGE: 84 : 36 SEX: F ROOM/BED: D.1181 AUTHOR: SOPHIA,DOC PHYSICIAN: REFERRING PHYSICIAN: ABIMAEL FLAHERTY MD DATE OF SERVICE: 07/17/19 Discharge Plan Patient Name: RADHA ERICKSON Facility: [facility]:[place] : 1935 Planned Disposition: Home Anticipated Discharge Date: 07/17/19 Discharge Date: 07/17/2019 Expected LOS: 2 Initial Reviewer: [email or web address] Initial Review Date: 07/17/2019 Generated: 07/17/19 5:01 pm Comments DCP- Discharge Planning Updated by [email or web address]: Jim Shipley on 07/17/19 3:[address] Patient Name: RADHA ERICKSON Admission Status: ER Accout number: [id number] Admission Date: 07-15-2019 : 1935 Admission Diagnosis: Attending: ABIMAEL FLAHERTY Current LOS: 2 Anticipated DC Date: 07-17-2019 Planned Disposition: Home Primary Insurance: MEDICARE A & B Discharge Planning Comments: CM MET WITH PT IN ROOM TO DISCUSS DISCHARGE PLANNING AND NEEDS. PT REPORTS LIVING AT HOME INDEPENDENTLY WITH HER SPOUSE. PT HAS NO MEDICAL EQUIPMENT AND NO OUTSIDE SERVICES ASSISTING IN THE HOME. CM DISCUSSED AVAILABILITY OF HOME HEALTH, REHAB SERVICES AND MEDICAL EQUIPMENT. PT DENIES DISCHARGE NEEDS, REPORTS HER SPOUSE WILL PICK HER UP FOR DISCHARGE HOME. Dredge Master: Jim Shipley DCPIA - Discharge Planning Initial Assessment Updated by [email or web address]: Jim Shipley on 07/17/19 4:00 pm * Is the patient Alert and Oriented? Yes * How many steps to enter\exit or inside your home? * PCP DR. PITTS * Pharmacy [facility] * Preadmission Environment Home with Family * ADLs Independent * Equipment None * Other Equipment [facility] - MEDICAL EQUIPMENT PROVIDER PREFERENCE * List name and contact numbers for known caregivers / representatives who currently or will assist patient after discharge: MARISSA ERICKSON, SPOUSE, * Verbal permission to speak to the caregivers and representatives has been obtained from the patient. N/A * Community resources currently utilized None * Please name any agencies selected above. NONE * Additional services required to return to the preadmission environment? No * Can the patient safely return to the preadmission environment? Yes * Has this patient been hospitalized within the prior 30 days at any hospital? No Last DP export: 07/17/19 2:53 p Patient Name: RADHA ERICKSON Page 90683 at 1602 All edits/amendments must be made on the electronic document DICTATION DATE: 07/17/19 160 RADIOLOGY NURSE: CHRISTEL 07/17/19 160 RPT#: [id number] DC DATE:07/17/19 STATUS: DIS IN [facility] [address] [place] [address] END OF REPORT
--- NOTE | 2019-07-18 13:03 | DS ---
PATIENT:RADHA ERICKSON :37 MEDICAL RECORD: [id number] DISCHARGE SUMMARY ADMISSION DATE: 07/15/19 DISCHARGE DATE: 07/17/19 IMPRESSION: 1. Sick sinus syndrome with pauses: 2. Acute coronary syndrome. 3. Hypertension. 4. Hyperlipidemia. 5. Coronary artery disease, status post intervention. BRIEF HISTORY AND HOSPITAL COURSE: Admitted with AFib RVR, marked ST elevation and angina and underwent angiography, which showed patent stents. 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 Subsequently, she was placed on antiarrhythmics, developed marked pauses, underwent permanent pacemaker placement without difficulty and discharged to home in good condition. ACTIVITY: As tolerated. DIET: AHA diet. Restrictions routine post-pacemaker. She will be seen back in the office in approximately 1 month. TRANSINT:[id number] Voice Confirmation ID: [id number] DOCUMENT ID: [id number] ABIMAEL FLAHERTY MD at 1303 CC: [id number] DICTATION DATE: 07/17/19 0843 INDOOR LANDSCAPE ARCHITECT: 07/17/19 2255 DIS IN 07/17/19 [facility] [address] [place] [address]
--- NOTE | 2019-08-01 09:58 | OP ---
PATIENT NAME: RADHA ERICKSON MEDICAL RECORD: [id number] :37 LOCATION:D. D.2118 ADMISSION DATE:07/15/19 SURGEON: MARISSA GARNER MD DATE OF OPERATION: 07/16/2019 PREOPERATIVE DIAGNOSIS: Sick sinus syndrome with pauses. POSTOPERATIVE DIAGNOSIS: Sick sinus syndrome with pauses. PROCEDURE: Pacemaker pocket creation and insertion of vascular leads. This is a cosurgeon case. RACING BOARD MARKER: Bobby Odonnell MD GENERAL SURGEON: Marissa Garner MD ANESTHESIA: Local with IV sedation. COMPLICATIONS: None. The risks, possible complications, and alternatives to the procedure were explained to the patient. She elected to proceed. Due to the complexity of the procedure, it was necessary to have 2 attending surgeons present during the operation. OPERATIVE COURSE: My involvement in the operation included the time-out. The left chest was then sterilely prepped and draped. A local anesthetic was used to infiltrate the skin and subcutaneous tissues by me in the left anterior superior infraclavicular chest. A transverse incision was accomplished inferior to the left clavicle. A sharp dissection was carried down to the level of the pectoralis fascia. A subcutaneous pocket was created in a caudad direction. Under fluoroscopic guidance, I accessed the left subclavian vein in an antegrade fashion. This was after use of 2 arterial sticks. Under fluoroscopy, a guidewire passed easily. A dilator sheath, which was a 9-Congolese sheath was advanced over the wire. The dilator was removed. Through the sheath, the ventricular lead was advanced. The peel-away sheath was then removed. Dr. Bobby Odonnell positioned the ventricular lead. Appropriate thresholds were obtained. I then sutured the lead down to the underlying pectoralis fascia with 3-0 TiCron times 2. Over the next wire, a dilator sheath was then advanced. This was a 7-Congolese dilator sheath. The dilator and wire were removed. Through the peel-away sheath, the atrial lead was advanced. The peel-away sheath was then removed. Dr. Bobby Odonnell then positioned the atrial lead. Appropriate thresholds were obtained. I then sutured the atrial lead down to the underlying pectoralis fascia with 3-0 TiCron times 2. I then confirmed the ventricular lead serial number with the pacemaker device branch sales and service representative. The ventricular lead was then placed in the ventricular dock of the pacemaker generator and then locked in place. I tried to dislodge the pacemaker lead and it would not dislodge indicating that it was firmly fixed. I OPERATIVE REPORT [id number] RADHA ERICKSON then confirmed the atrial lead registration number and placed the atrial lead in the atrial dock of the pacemaker generator. It was then locked down. I tried to dislodge the atrial lead and was unable to do so indicating that it was firmly seated down in the pacemaker generator. The pacemaker generator was then placed into the subcutaneous tissues in the pacemaker pocket. I sutured the pacemaker to the underlying pectoralis muscle with a single 3-0 TiCron. I irrigated the subcutaneous pocket. There was no bleeding. The subdermis was approximated with interrupted 3-0 Vicryls. The skin was approximated with a running intracuticular 3-0 Vicryl. A sterile dressing was then applied. The patient was then conveyed to the post-cardiac catheterization recovery area. A portable chest x-ray will be obtained. TRANSINT:[id number] Voice Confirmation ID: [id number] DOCUMENT ID: [id number] MARISSA GARNER MD at 0958 CC: BOBBY FLAHERTY MD [id number] DICTATION DATE: 07/31/19 1806 DIGITAL SALES ASSISTANT: 08/01/19 0314 DIS IN 07/17/19 [facility] [place] [id number] [place] [address]
== END 2019-07-17 14:15 | disposition home or self-care (01) | DRG 243 ==
LOC: D.CATH 18:50 → D.ER 18:50 → EDSTATUS 20:18 → D.M2 20:20 → D.CATH 07-15 15:51 → D.M2 07-15 15:52
PROVIDERS: Family Medicine; ADMIT Internal Medicine Interventional Cardiology; ATTEND Internal Medicine Interventional Cardiology
PROC: B2111ZZ Fluoroscopy of Multiple Coronary Arteries using Low Osmolar Contrast (ICD-10-PCS; 2019-07-14)
PROC: B2151ZZ Fluoroscopy of Left Heart using Low Osmolar Contrast (ICD-10-PCS; 2019-07-14)
PROC: 4A023N7 Measurement of Cardiac Sampling and Pressure, Left Heart, Percutaneous Approach (ICD-10-PCS; 2019-07-14)
PROC: 02H63JZ Insertion of Pacemaker Lead into Right Atrium, Percutaneous Approach (ICD-10-PCS; 2019-07-16)
PROC: 02HK3JZ Insertion of Pacemaker Lead into Right Ventricle, Percutaneous Approach (ICD-10-PCS; 2019-07-16)
PROC: 0JH606Z Insertion of Pacemaker, Dual Chamber into Chest Subcutaneous Tissue and Fascia, Open Approach (ICD-10-PCS; principal; 2019-07-16 10:00)
DX: I49.5 Sick sinus syndrome (principal); I24.9 Acute ischemic heart disease, unspecified; I25.10 Atherosclerotic heart disease of native coronary artery without angina pectoris; K21.9 Gastro-esophageal reflux disease without esophagitis; E78.5 Hyperlipidemia, unspecified; I48.0 Paroxysmal atrial fibrillation; I10 Essential (primary) hypertension

== ENCOUNTER 2019-10-09 14:31 | Emergency (ER) | payer MEDICARE, BC ==
[~2019-10-09] VITALS: Ht 154.9 cm; Wt 50.0 kg
[2019-10-09 14:35] VITALS: Ht 154.9 cm; Wt 50.0 kg
[2019-10-09 15:53] LABS: BASOPHILS 0.4 % (0-2); EOSINOPHILS 1.1 % (0-7); IMMATURE GRANULOCYTES 0.3 % (0-5); MCH 28.3 pg (26.0-34.0); MCHC 32.4 g/dL (31.0-37.0); MCV 87.3 fL (80.0-100.0); MONOCYTES 6.9 % (2-11); NEUTROPHILS 81.3 % (40-80); PLATELET COUNT 296 10x3/uL (130-400); RBC 4.24 10x6/uL (4.00-5.40); RDW 13.3 % (11.5-14.5); WBC 11.2 10x3/uL (4.8-10.8)
[2019-10-09 16:12] LABS: CALC OSMOLALITY 287 mosm/kg (275-300); CALCIUM 8.6 mg/dL (8.5-10.1); CHLORIDE - SERUM 109 mmol/L (98-107); CREATININE - SERUM 0.6 mg/dL (0.6-1.3); POTASSIUM - SERUM 3.3 mmol/L (3.5-5.1); SODIUM 145 mmol/L (136-145); UREA NITROGEN 12 mg/dL (7-18); eGFR NON AFRICAN AMERICAN > 90 mL/min (90-120)
[2019-10-09 16:13] LABS: GLUCOSE 80 mg/dL (74-106)
[2019-10-09 16:21] LABS: ALBUMIN 3.5 g/dL (3.4-5.0); ALKALINE PHOSPHATASE 80 U/L (46-116); ALT (SGPT) 12 U/L (10-68); AMYLASE - SERUM 50 U/L (25-115); BILIRUBIN - TOTAL 0.38 mg/dL (0.2-1.3); LIPASE 166 U/L (73-393); PROTEIN - SERUM 6.9 g/dL (6.4-8.2); TROPONIN-I < 0.017 ng/mL (0.000-0.060)
[2019-10-09] MEDS ORDERED: LOMOTIL 2.5-0.1 EAC1 PO (18:01)
[2019-10-09 18:28] LABS: APPEARANCE CLEAR (CLEAR); BILIRUBIN NEGATIVE (NEGATIVE); COLOR YELLOW (YELLOW); GLUCOSE NEGATIVE (NEGATIVE); KETONE NEGATIVE (NEGATIVE); NITRITE NEGATIVE (NEGATIVE); PROTEIN NEGATIVE (NEGATIVE); UROBILINOGEN NORMAL (NORMAL)
[2019-10-09 18:45] VITALS: BP 145/79
== END 2019-10-09 18:46 | disposition home or self-care (01) ==
LOC: D.ER 14:31
PROVIDERS: Family Medicine
DX: R19.7 Diarrhea, unspecified (principal); Z86.79 Personal history of other diseases of the circulatory system; E87.6 Hypokalemia; I10 Essential (primary) hypertension; Z95.5 Presence of coronary angioplasty implant and graft

== ENCOUNTER 2021-03-06 12:01 | Emergency (ER) | payer MEDICARE, BC ==
[~2021-03-06] VITALS: Ht 154.9 cm; Wt 51.4 kg
[~2021-03-06 12:01] MED LIST changes: +LOMOTIL 2.5-0.1 EAC1 PO
[2021-03-06 12:07] VITALS: BP 196/77; Ht 154.9 cm; Wt 51.4 kg
[2021-03-06 12:39] LABS: BASOPHILS 0.6 % (0-2); EOSINOPHILS 2.3 % (0-7); IMMATURE GRANULOCYTES 0.3 % (0-5); LYMPHOCYTE ABS# 1.44 10x3/uL (1.18-3.74); LYMPHOCYTES 20.8 % (15-50); MCH 26.6 pg (26.0-34.0); MCHC 31.4 g/dL (31.0-37.0); MCV 84.5 fL (80.0-100.0); MEAN PLATELET VOLUME 9.4 fL (7.4-10.4); MONOCYTES 10.3 % (2-11); NEUTROPHIL ABS# 4.55 10x3/uL (1.56-6.13); NEUTROPHILS 65.7 % (40-80); PLATELET COUNT 270 10x3/uL (130-400); RBC 4.14 10x6/uL (4.00-5.40); RDW 13.6 % (11.5-14.5); WBC 6.9 10x3/uL (4.8-10.8)
[2021-03-06 12:53] LABS: CALC OSMOLALITY 286 mosm/kg (275-300); CALCIUM 8.5 mg/dL (8.5-10.1); CARBON DIOXIDE 27.3 mmol/L (21.0-32.0); CHLORIDE - SERUM 108 mmol/L (98-107); CREATININE - SERUM 0.8 mg/dL (0.6-1.3); GLUCOSE 137 mg/dL (74-106); POTASSIUM - SERUM 3.2 mmol/L (3.5-5.1); SODIUM 143 mmol/L (136-145); UREA NITROGEN 13 mg/dL (7-18); eGFR NON AFRICAN AMERICAN 72 mL/min (90-120)
[2021-03-06 13:00] LABS: APTT 24.1 SECONDS (22.8-39.4); INR 1.06 (0.85-1.17); PROTIME 12.8 SECONDS (11.6-15.0)
[2021-03-06 13:06] LABS: ALBUMIN 3.3 g/dL (3.4-5.0); ALKALINE PHOSPHATASE 96 U/L (30-120); ALT (SGPT) 15 U/L (10-68); BILIRUBIN - TOTAL 0.29 mg/dL (0.2-1.3); CKMB 1.1 U/L (0.0-3.6); CREATINE KINASE 41 UL (21-215); MAGNESIUM - SERUM 1.7 mg/dL (1.8-2.4)
[2021-03-06 13:07] LABS: TROPONIN-I < 0.017 ng/mL (0.000-0.060)
== END 2021-03-06 14:44 | disposition home or self-care (01) ==
LOC: D.ER 12:01
PROVIDERS: Emergency Medicine
DX: K21.00 Gastro-esophageal reflux disease with esophagitis, without bleeding (principal); E87.6 Hypokalemia; I10 Essential (primary) hypertension